=== PATIENT | female | born 1940 | race Caucasian/White ===

== ENCOUNTER 2017-08-10 22:08 | Inpatient (IN) | payer MEDICARE ==
--- NOTE | 2017-08-10 22:38 | ERPHSYRPT ---
- History of Present Illness Time Seen by Provider: 08/10/17 22:31 Historian: patient Exam Limitations: no limitations Physician History: This is a 77-year-old white female who is brought by [facility]. Patient states that she has been having loose stools for several years she states she has no pain and she is not really sure why she is here. Family states that she does have chronic diarrhea they thought that she had several episodes of vomiting today and so they had her brought to the emergency room. They state that they felt that her abdomen was distended. Patient currently denies any pain she again states she is not really sure why she was here. Past medical history includes glaucoma, diabetes, hypothyroidism, osteoarthritis , breast cancer, high blood pressure, diabetes, hiatal hernia Past surgical history includes left lower extremity amputation BKA, wisdom teeth removed lumpectomy, disc removed Timing/Duration: other (patient states symptoms for over2 years with loose stools family states vomiting today and diarrh) Activities at Onset: none Quality: other (patient denies pain) Pain Radiation: no radiation Severity of Pain-Max: none (family states patient was having pain at home patient denies pain) Severity of Pain-Current: none Associated Symptoms: diarrhea, nausea, vomiting (Family states vomiting at home patient denies), No back, No chest pain, No diaphoresis, No fever/chills, No fatigue, No headache, No heartburn, No loss of appetite, No neck pain, No rash, No shortness of breath, No syncope Previous symptoms: other (chronic diarrhea) Allergies/Adverse Reactions: Penicillins Allergy (Verified 08/10/17 22:41) tomato [Tomato] Allergy (Verified 08/10/17 22:41) Home Medications: Aspirin 81 mg PO DAILY 11/10/13 [History] Atenolol 12.5 mg PO BID 11/10/13 [History] Gemfibrozil 600 mg [Lopid 600 mg] 600 mg PO DAILY 11/10/13 [History] Simvastatin 40 mg [Zocor 40 mg] 40 mg PO HS 11/10/13 [History] Insulin Aspart [NovoLOG Insulin] 0 units SQ TIDWM 03/30/17 [History] Lisinopril [Zestril] 2.5 mg PO DAILY 03/30/17 [History] Metoclopramide HCl 5 mg PO BID 03/30/17 [History] Hx Tetanus, Diphtheria Vaccination/Date Given: (unknown) Hx Influenza Vaccination/Date Given: No Hx Pneumococcal Vaccination/Date Given: No - Review of Systems Constitutional: No Fever, No Chills Eyes: No Symptoms Ears, Nose, & Throat: No Symptoms Respiratory: No Cough, No Dyspnea Cardiac: No Chest Pain, No Edema, No Syncope Abdominal/Gastrointestinal: Abdominal Pain (family states abdominal pain patient denies), Diarrhea, Other, No Nausea, No Vomiting, No Constipation, No Hematemesis, No Hematochezia, No Melena, No Appetite Changes Genitourinary Symptoms: No Dysuria Musculoskeletal: No Back Pain, No Neck Pain Skin: No Rash Neurological: No Dizziness, No Focal Weakness, No Sensory Changes Psychological: No Symptoms Endocrine: No Symptoms All Other Systems: Reviewed and Negative - Past Medical History Pertinent Past Medical History: Yes Neurological History: No Pertinent History ENT History: Glaucoma Cardiac History: No Pertinent History Respiratory History: No Pertinent History Endocrine Medical History: Diabetes Type II, Hypothyroidism Musculoskeletal History: Osteoarthritis GI Medical History: Other History: No Pertinent History Psycho-Social History: No Pertinent History Female Reproductive Disorders: Breast Cancer Other Medical History: HTN. IDDM. Hypothryoidism. Breast CA. Hiatal Hernia - Past Surgical History Past Surgical History: Yes Neuro Surgical History: No Pertinent History Cardiac: No Pertinent History Respiratory: No Pertinent History Gastrointestinal: No Pertinent History Genitourinary: No Pertinent History Musculoskeletal: Amputation, Other Female Surgical History: Lumpectomy Other Surgical History: oral surgery - wisdom teeth. back surgery - disc removed - Social History Smoking Status: Former smoker Exposure to second hand smoke: No Drug Use: none Patient Lives Alone: No - Nursing Vital Signs Nursing Vital Signs: Initial Vital Signs Temperature 98.0 F 08/10/17 22:31 Pulse Rate 94 H 08/10/17 22:31 Respiratory Rate 16 08/10/17 22:31 Blood Pressure 131/102 08/10/17 22:31 O2 Sat by Pulse Oximetry 98 08/10/17 22:31 Pain Scale Pain Intensity 0 - Physical Exam General Appearance: no apparent distress, alert Eye Exam: PERRL/EOMI, eyes nml inspection Ears, Nose, Throat Exam: normal ENT inspection, pharynx normal, moist mucous membranes Neck Exam: normal inspection, non-tender, supple, full range of motion Respiratory Exam: normal breath sounds, lungs clear, No respiratory distress Cardiovascular Exam: regular rate/rhythm, normal heart sounds Gastrointestinal/Abdomen Exam: soft, other (abdomen is soft, obese, nontender, positive bowel sounds) Rectal Exam: other (moderate amount of stool no [id number]) Back Exam: normal inspection, normal range of motion, No CVA tenderness, No vertebral tenderness Extremity Exam: normal inspection, normal range of motion, pelvis stable Neurologic Exam: alert, oriented x 3, 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 Patchy infiltrate and consolidation in the left lower lobe concerning for pneumonia. market stool in the sigmoid colon and rectum consistent with constipation. Cholelithiasis without evidence of acute cholecystitis, follow-up as clinically indicated.) Ordered Tests: Active Orders 24 hr Category Date Time Status EKG-ER Only STAT Care 08/11/17 01:40 Active IV Insertion STAT Care 08/10/17 22:30 Active ABDOMEN AND PELVIS W/0 CONTRAS [CT] Stat Exams 08/10/17 23:32 Taken CHEST 1 VIEW (PORTABLE) Stat Exams 08/11/17 01:38 Taken AMYLASE Stat Lab 08/10/17 22:55 Completed BLOOD CULTURE Stat Lab 08/11/17 02:15 Received CBC W DIFF Stat Lab 08/10/17 22:55 Completed CMP Stat Lab 08/10/17 22:55 Completed CULTURE,SPUTUM Stat Lab 08/11/17 01:35 Uncollected LIPASE Stat Lab 08/10/17 22:55 Completed TROPONIN Q3H Lab 08/11/17 00:05 Completed TROPONIN Q3H Lab 08/11/17 02:15 Completed TROPONIN Q3H Lab 08/11/17 08:00 Ordered TROPONIN Q3H Lab 08/11/17 11:00 Ordered TROPONIN Q3H Lab 08/11/17 14:00 Ordered UA W/RFX UR CULTURE Stat Lab 08/10/17 23:45 Completed Medication Summary Generic Name Dose Route Start Last Admin Trade Name Yareli PRN Reason Stop Dose Admin Sodium Chloride 1,000 mls @ 100 mls/hr 08/10/17 22:30 08/10/17 23:44 Sodium Chloride 0.9% 1000 Ml IV 09/09/17 22:29 Not Given .Q10H [facility] Lab/Rad Data: Laboratory Result Diagrams 08/10/17 22:55 08/10/17 22:55 Laboratory Results 08/11/17 08/11/17 08/10/17 Range/Units 02:15 00:05 23:45 WBC (4.0-10.5) K/mm3 RBC (4.1-5.4) M/mm3 Hgb (12.0-16.0) gm/dl Hct (35-47) % MCV (78-100) fl MCH (26-32) pg MCHC (32-36) g/dl RDW (11.5-14.0) % Plt Count (150-450) K/mm3 MPV (6-9.5) fl Gran % (36.0-66.0) % Eos # (Auto) (0-0.5) Absolute Lymphs (auto) (1.0-4.6) Absolute Monos (auto) (0.0-1.3) Lymphocytes % (24.0-44.0) % Monocytes % (0.0-12.0) % Eosinophils % (0.00-5.0) % Basophils % (0.0-0.4) % Absolute Granulocytes (1.4-6.9) Basophils # (0-0.4) Sodium (137-145) mmol/L Potassium (3.5-5.1) mmol/L Chloride (98-107) mmol/L Carbon Dioxide (22-30) mmol/L Anion Gap (5-15) MEQ/L BUN (7-17) mg/dL Creatinine (0.52-1.04) mg/dL Estimated GFR ML/MIN Glucose (74-106) mg/dL Calcium (8.4-10.2) mg/dL Total Bilirubin (0.2-1.3) mg/dL AST (14-36) U/L ALT (0-35) U/L Alkaline Phosphatase (38-126) U/L Troponin I < 0.012 < 0.012 (0.000-0.034) ng/mL Serum Total Protein (6.3-8.2) g/dL Albumin (3.5-5.0) g/dL Amylase (30-110) U/L Lipase (23-300) U/L Ur Collection Type CATH Urine Color YELLOW (YELLOW) Urine Appearance CLEAR (CLEAR) Urine pH 5.0 (5-6) Ur Specific [place] 1.015 (1.005-1.025) Urine Protein NEGATIVE (Negative) Urine Ketones NEGATIVE (NEGATIVE) Urine Blood NEGATIVE (0-5) Ross/ul Urine Nitrite NEGATIVE (NEGATIVE) Urine Bilirubin NEGATIVE (NEGATIVE) Urine Urobilinogen NORMAL (0-1) mg/dL Ur Leukocyte Esterase NEGATIVE (NEGATIVE) Urine Culture Reflexed NO (NO) Urine Glucose NEGATIVE (NEGATIVE) mg/dL Specimen Received 08/10/17 [id number] 08/10/17 08/10/17 Range/Units 22:55 22:55 WBC 20.3 H (4.0-10.5) K/mm3 RBC 4.95 (4.1-5.4) M/mm3 Hgb 13.9 (12.0-16.0) gm/dl Hct 44.0 (35-47) % MCV 88.9 (78-100) fl MCH 28.1 (26-32) pg MCHC 31.6 L (32-36) g/dl RDW 16.0 H (11.5-14.0) % Plt Count 251 (150-450) K/mm3 MPV 9.5 (6-9.5) fl Gran % 90.0 H (36.0-66.0) % Eos # (Auto) 0.02 (0-0.5) Absolute Lymphs (auto) 1.06 (1.0-4.6) Absolute Monos (auto) 0.91 (0.0-1.3) Lymphocytes % 5.2 L (24.0-44.0) % Monocytes % 4.5 (0.0-12.0) % Eosinophils % 0.1 (0.00-5.0) % Basophils % 0.2 (0.0-0.4) % Absolute Granulocytes 18.26 H (1.4-6.9) Basophils # 0.04 (0-0.4) Sodium 143 (137-145) mmol/L Potassium 4.0 (3.5-5.1) mmol/L Chloride 112 H (98-107) mmol/L Carbon Dioxide 17 L (22-30) mmol/L Anion Gap 18.7 H (5-15) MEQ/L BUN 63 H (7-17) mg/dL Creatinine 0.87 (0.52-1.04) mg/dL Estimated GFR > 60.0 ML/MIN Glucose 249 H (74-106) mg/dL Calcium 9.9 (8.4-10.2) mg/dL Total Bilirubin 0.20 (0.2-1.3) mg/dL AST 26 (14-36) U/L ALT 16 (0-35) U/L Alkaline Phosphatase 114 (38-126) U/L Troponin I (0.000-0.034) ng/mL Serum Total Protein 7.2 (6.3-8.2) g/dL Albumin 3.9 (3.5-5.0) g/dL Amylase 92 (30-110) U/L Lipase 457 H (23-300) U/L Ur Collection Type Urine Color (YELLOW) Urine Appearance (CLEAR) Urine pH (5-6) Ur Specific [place] (1.005-1.025) Urine Protein (Negative) Urine Ketones (NEGATIVE) Urine Blood (0-5) Ross/ul Urine Nitrite (NEGATIVE) Urine Bilirubin (NEGATIVE) Urine Urobilinogen (0-1) mg/dL Ur Leukocyte Esterase (NEGATIVE) Urine Culture Reflexed (NO) Urine Glucose (NEGATIVE) mg/dL Specimen Received - Progress Progress: improved Progress Note: 08/11/17 01:55 This is a 77-year-old white female with history of glaucoma, diabetes type 2, hypothyroidism, osteoarthritis, breast cancer, high blood pressure, hiatal hernia, bronchitis, Patient states she she has been having loose stools for a couple of years she was noted today to have vomiting and family stated that she was complaining of abdominal pain however patient denies any real changes or vomiting when I talk to her. Patient's labs show a white count of 20.3 hemoglobin 13.9 hematocrit 44 him patient's chemistry shows sodium 143 potassium 4.0 chloride 112 bicarbonate 17 BUN 63 creatinine 0.87 glucose 249 Patient's EKG shows sinus rhythm [address] or T wave changes are noted Troponin is pending on this patient she has no chest pain or shortness of breath. Patient is noted to have a moderate amount of stool in her bowel she does not feel to be impacted she has no bleeding on rectal exam Because of the family's statement that the patient was complaining of abdominal pain and vomiting CT of the abdomen without contrast was obtained. This is remarkable for a patchy infiltrate and consolidation in the left lower lobe concerning for pneumonia, marketed stool in the sigmoid colon and rectum consistent with constipation, cholelithiasis without evidence of acute cholecystitis, patient was noted to have an amylase and lipase on her chemistry which shows elevated lipase of 457. Blood cultures have been ordered on this patient patient will be given IV Rocephin records show the patient has received IV Rocephin on multiple occasions I have obtained a troponin on this patient there appears to be isolated T wave elevation in lead 2 but does not appear acute changes on CT to show acute changes on EKG. Will plan on admitting patient chest x-ray has been ordered, blood cultures have been ordered sputum cultures have been ordered patient is receiving IV normal saline at 100 mL per hour. 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 Lopez 08/11/17 02:52 Case is discussed with Dr. Lopez. Will plan on placing the patient on observation. Continue IV fluids, keep a patient nothing by mouth for now. Continue Rocephin begin Zithromax. Diagnosis 1 vomiting. 2 pancreatitis. 3. Left lower lobe pneumonia 4 constipation - Departure Time of Disposition: 02:54 Departure Disposition: In-patient Admission Clinical Impression: Vomiting Qualifiers: Vomiting type: unspecified Vomiting Intractability: non-intractable Nausea presence: unspecified Qualified Code(s): R11.10 - Vomiting, unspecified Pancreatitis Qualifiers: Chronicity: acute Pancreatitis type: unspecified pancreatitis type Acute pancreatitis complication: unspecified Qualified Code(s): K85.90 - Acute pancreatitis without necrosis or infection, unspecified Left lower lobe pneumonia Qualifiers: Pneumonia type: due to unspecified organism Qualified Code(s): J18.1 - Lobar pneumonia, unspecified organism Constipation Qualifiers: Constipation type: unspecified constipation type Qualified Code(s): K59.00 - Constipation, unspecified Condition: Fair Critical Care Time: No Referrals: FELICIA LOPEZ MD [Primary Care Provider] -
[2017-08-10 22:59] LABS: BASOPHIL % 0.2 % (0.0-0.4); Basophil (Absolute #) 0.04 (0-0.4); Eosinophil % 0.1 % (0.00-5.0); Eosinophil (Absolute #) 0.02 (0-0.5); Granulocyte Absolute (ANC) 18.26 (1.4-6.9); Hemoglobin 13.9 gm/dl (12.0-16.0); Lymphocyte (Absolute #) 1.06 (1.0-4.6); Lymphocytes % 5.2 % (24.0-44.0); Mean Cell Volume 88.9 fl (78-100); Mean Corpuscular Hemoglobin 28.1 pg (26-32); Mean Corpuscular Hgb Concent. 31.6 g/dl (32-36); Mean Platelet Volume 9.5 fl (6-9.5); Monocyte (Absolute #) 0.91 (0.0-1.3); Monocytes % 4.5 % (0.0-12.0); Platelet Count 251 K/mm3 (150-450); Red Blood Count 4.95 M/mm3 (4.1-5.4); White Blood Count 20.3 K/mm3 (4.0-10.5)
[2017-08-10 23:21] LABS: ALBUMIN 3.9 g/dL (3.5-5.0); ALKALINE PHOSPHATASE 114 U/L (38-126); AMYLASE 92 U/L (30-110); ANION GAP 18.7 MEQ/L (5-15); BLOOD UREA NITROGEN 63 mg/dL (7-17); CHLORIDE 112 mmol/L (98-107); Calcium 9.9 mg/dL (8.4-10.2); Carbon Dioxide 17 mmol/L (22-30); Creatinine 1 0.87 mg/dL (0.52-1.04); Glucose 249 mg/dL (74-106); LIPASE 457 U/L (23-300); SGOT/AST 26 U/L (14-36); SGPT/ALT 16 U/L (0-35); SODIUM 143 mmol/L (137-145); Total Protein 7.2 g/dL (6.3-8.2)
[2017-08-10] MEDS: Sodium Chloride 0.9% 1000 ML 1,000 ML IV SCH (23:44)
[2017-08-10 23:54] LABS: Appearance CLEAR (CLEAR)
[2017-08-10 23:55] LABS: Bilirubin NEGATIVE (NEGATIVE); Blood NEGATIVE Ery/ul (0-5); Glucose NEGATIVE (NEGATIVE); Ketones NEGATIVE (NEGATIVE); Leukocyte Esterase NEGATIVE (NEGATIVE); Nitrite NEGATIVE (NEGATIVE); Protein,Urine Dip NEGATIVE (Negative); Specific Gravity 1.015 (1.005-1.025); Urobilinogen NORMAL mg/dL (0-1)
[2017-08-11] MEDS ORDERED: NovoLOG Insulin SQ PRN (04:03)
[2017-08-11] MEDS ORDERED: Sodium Chloride 0.9% 1000 ML 1,000 ML IV SCH (04:03)
[2017-08-11] MEDS ORDERED: Zofran 4 MG/2 ML VIAL IV PRN (04:03)
[2017-08-11] MEDS: Sodium Chloride 0.9% 1000 ML 1,000 ML IV SCH ×2 (04:52→17:04)
--- NOTE | 2017-08-11 08:55 | XRAY ---
Indication: Abdomen pain. Diarrhea. Multiple contiguous axial images obtained through the abdomen and pelvis without contrast as ordered. Comparison: November 10, 2013. Lung bases demonstrates new left lower lobe patchy airspace disease with small focus of consolidation. Right lung bases clear. Heart is not enlarged. Stomach is distended with food/fluid. Large rectal and sigmoid fecal impaction worst than before. No free fluid/air. Again 2.2 cm gallstone and calcified uterine fibroids. There is now punctate calcification in the left posterior urinary bladder. Remaining liver, pancreas, spleen, adrenal glands, kidneys, ureters, and bladder appear unremarkable for noncontrast exam. There remains moderate scattered vascular calcifications without AAA. Osseous structures again demonstrates osteopenia and moderate multilevel degenerative spondylosis. Impression: 1. Again sigmoid and rectal fecal impaction. 2. New posterior urinary bladder micro-calculus versus bladder wall calcification. 3. Stable gallstone and calcified uterine fibroids. 4. New left lung base patchy consolidating airspace disease. Comment: Preliminary interpretation was made by [facility]. No discrepancy. CT DI 21.17
--- NOTE | 2017-08-11 08:57 | XRAY ---
Indication: Abdomen pain. Infiltrate. Comparison: March 30, 2017. Portable chest demonstrates new left base infiltrate/atelectasis. Remaining heart and lungs unremarkable with stable left-sided [place] catheter. Bony thorax intact again with osteopenia and degenerative changes.
[2017-08-11] MEDS: ROCEPHIN 1 Gm-D5w 50 ml Bag** 1 G/50 ML IVPB IV SCH (09:04)
[2017-08-11] MEDS: Zithromax 500 MG/ 250 ML NaCl Premix 500 MG/250 ML IVPB IV SCH (09:06)
[2017-08-12] MEDS: Sodium Chloride 0.9% 1000 ML 1,000 ML IV SCH ×2 (02:08→23:25)
[2017-08-12 05:52] LABS: BASOPHIL % 0.3 % (0.0-0.4); Basophil (Absolute #) 0.03 (0-0.4); Eosinophil % 2.9 % (0.00-5.0); Eosinophil (Absolute #) 0.33 (0-0.5); Hematocrit 34.8 % (35-47); Hemoglobin 11.1 gm/dl (12.0-16.0); Lymphocyte (Absolute #) 2.11 (1.0-4.6); Lymphocytes % 18.5 % (24.0-44.0); Mean Cell Volume 88.1 fl (78-100); Mean Corpuscular Hemoglobin 28.1 pg (26-32); Mean Corpuscular Hgb Concent. 31.9 g/dl (32-36); Mean Platelet Volume 9.2 fl (6-9.5); Monocyte (Absolute #) 1.06 (0.0-1.3); Monocytes % 9.3 % (0.0-12.0); Platelet Count 225 K/mm3 (150-450); Red Blood Count 3.95 M/mm3 (4.1-5.4); Red Cell Distribution Width 15.5 % (11.5-14.0); White Blood Count 11.4 K/mm3 (4.0-10.5)
[2017-08-12 05:54] LABS: ALKALINE PHOSPHATASE 79 U/L (38-126); AMYLASE 38 U/L (30-110); ANION GAP 11.3 MEQ/L (5-15); BLOOD UREA NITROGEN 27 mg/dL (7-17); CHLORIDE 114 mmol/L (98-107); Calcium 9.1 mg/dL (8.4-10.2); Carbon Dioxide 19 mmol/L (22-30); Creatinine 1 0.47 mg/dL (0.52-1.04); Glucose 107 mg/dL (74-106); LIPASE 36 U/L (23-300); SGOT/AST 17 U/L (14-36); SGPT/ALT 12 U/L (0-35); SODIUM 141 mmol/L (137-145); Total Protein 5.8 g/dL (6.3-8.2)
[2017-08-12 06:33] LABS: Potassium 2.5 mmol/L (3.5-5.1)
[2017-08-12] MEDS: POTASSIUM CHLORIDE 20 mEq IN WATER 100ML 20 MEQ/100 ML BAG IV SCH ×4 (06:50→21:49)
[2017-08-12] MEDS: ROCEPHIN 1 Gm-D5w 50 ml Bag** 1 G/50 ML IVPB IV SCH (08:52)
--- NOTE | 2017-08-12 10:03 | PCM.HP ---
History of Present Illness - Chief Complaint Chief Complaint: Vomiting History of Present Illness: is a 77 year old female. - Review of Systems Constitutional: No Fever, No Chills Eyes: No Symptoms Ears, Nose, & Throat: No Symptoms Respiratory: No Cough, No Short Of Breath Cardiac: No Chest Pain, No Edema, No Syncope Abdominal/Gastrointestinal: No Abdominal Pain, No Nausea, No Vomiting, No Diarrhea Genitourinary Symptoms: No Dysuria Musculoskeletal: No Back Pain, No Neck Pain Skin: No Rash Neurological: No Dizziness, No Focal Weakness, No Sensory Changes Psychological: No Symptoms Endocrine: No Symptoms Hematologic/Lymphatic: No Symptoms Immunological/Allergic: No Symptoms Medications & Allergies Home Medications: Home Medication List Aspirin 81 mg PO DAILY 11/10/13 [History Confirmed 08/11/17] Atenolol 25 mg PO BID 11/10/13 [History Confirmed 08/11/17] Gemfibrozil 600 mg [Lopid 600 mg] 600 mg PO DAILY 11/10/13 [History Confirmed 08/11/17] Simvastatin 40 mg [Zocor 40 mg] 40 mg PO HS 11/10/13 [History Confirmed 08/11/17 ] Levothyroxine Sodium 125 mcg PO DAILY #30 tablet 11/14/13 [Rx Confirmed 08/11/17 ] PANTOPRAZOLE 40 mg Tablet [Protonix 40MG Tablet] 40 mg PO DAILY #30 tab [Rx Confirmed 08/11/17] Insulin Aspart [NovoLOG Insulin] 7 units SQ TIDWM 03/30/17 [History Confirmed 08/11/17] Lisinopril [Zestril] 2.5 mg PO DAILY 03/30/17 [History Confirmed 08/11/17] Metoclopramide HCl 5 mg PO BID 03/30/17 [History Confirmed 08/11/17] Balsam [place] Oil [Venelex Ointment] 60 gm TP TID 08/11/17 [History Confirmed 08/11/17] Ferrous Sulfate [Iron] 325 mg PO TID 08/11/17 [History Confirmed 08/11/17] Insulin Glargine [Lantus Insulin] 42 units SQ HS 08/11/17 [History Confirmed 07/26] Metoclopramide HCl [Reglan] 2.5 mg PO AC 08/11/17 [History Confirmed 08/11/17] Multivitamin [Multi-Vitamin Daily] 1 tab PO DAILY 08/11/17 [History Confirmed ] Allergies/Adverse Reactions: Allergies Allergy/AdvReac Type Severity Reaction Status Date / Time Penicillins Allergy Verified 08/10/17 22:41 tomato [Tomato] Allergy Verified 08/10/17 22:41 - Past Medical History Past Medical History: Yes Neurological History: No Pertinent History ENT History: Glaucoma Cardiac History: No Pertinent History Respiratory History: No Pertinent History Endocrine Medical History: Diabetes Type II, Hypothyroidism Musculoskelatal History: Osteoarthritis GI Medical History: Other History: No Pertinent History Pyscho-Social History: No Pertinent History Reproductive Disorders: Breast Cancer Comment: HTN. IDDM. Hypothryoidism. Breast CA. Hiatal Hernia. pt poor historian, recalled from ER documentation - Female History Are you now?: No - Past Surgical History Past Surgical History: Yes Neuro Surgical History: No Pertinent History Cardiac History: No Pertinent History Respiratory Surgery: No Pertinent History GI Surgical History: No Pertinent History Genitourinary Surgical Hx: No Pertinent History Musculskeletal Surgical Hx: Amputation, Other Female Surgical History: Lumpectomy Other Surgical History: oral surgery - wisdom teeth. back surgery - disc removed - Social History Smoking Status: Never smoker Exposure to second hand smoke: No Alcohol: None Drug Use: none - Physical Exam Vital Signs: Vital Signs - 24 hr Temp Pulse Resp BP Pulse Ox 08/12/17 07:31 16 08/12/17 06:58 98.1 F 83 16 153/68 98 08/12/17 06:00 98 08/12/17 04:00 98.1 F 80 18 158/67 98 08/12/17 00:00 98.2 F 85 18 131/63 97 08/11/17 20:00 98.4 F 89 20 126/80 96 08/11/17 16:35 97.9 F 92 H 20 141/63 98 08/11/17 16:00 18 08/11/17 11:31 98.5 F 92 H 18 137/61 97 08/11/17 11:20 18 Oxygen-Last 24 hours O2 Percentage 1 Liter = 24% Oxygen Flowrate (L/min)-RT 1 General Appearance: no apparent distress, alert Neurologic Exam: alert, oriented x 3, cooperative, normal mood/affect, nml cerebellar function, nml station & gait, sensation nml, No motor deficits Eye Exam: PERRL/EOMI, eyes nml inspection Ears, Nose, Throat Exam: normal ENT inspection, TMs normal, pharynx normal, moist mucous membranes Neck Exam: normal inspection, non-tender, supple, full range of motion Respiratory Exam: normal breath sounds, lungs clear, No respiratory distress Cardiovascular Exam: regular rate/rhythm, normal heart sounds, normal peripheral pulses Gastrointestinal/Abdomen Exam: soft, normal bowel sounds, No tenderness, No mass Back Exam: normal inspection, normal range of motion, No CVA tenderness, No vertebral tenderness Extremity Exam: normal inspection, normal range of motion, pelvis stable Skin Exam: normal color, warm, dry, No rash Lymphatic Exam: No adenopathy Results - Labs Lab/Micro Results: Accuchecks Date 08/12/17 Date 08/12/17 Date 08/12/17 Date 08/11/17 Date 08/11/17 Date 08/11/17 Time 07:41 Time 04:00 Time 00:00 Time 18:24 Time 14:20 Accucheck Value: 89 Accucheck Value: 94 Accucheck Value: 157 Accucheck Value: 188 Accucheck Value: 144 Accucheck Value: 179 Lab Results-Last 24 Hours 08/12/17 08/12/17 08/12/17 Range/Units 05:15 05:25 05:25 WBC 11.4 H (4.0-10.5) K/mm3 RBC 3.95 L (4.1-5.4) M/mm3 Hgb 11.1 L (12.0-16.0) gm/dl Hct 34.8 L (35-47) % MCV 88.1 (78-100) fl MCH 28.1 (26-32) pg MCHC 31.9 L (32-36) g/dl RDW 15.5 H (11.5-14.0) % Plt Count 225 (150-450) K/mm3 MPV 9.2 (6-9.5) fl Gran % 69.0 H (36.0-66.0) % Eos # (Auto) 0.33 (0-0.5) Absolute Lymphs (auto) 2.11 (1.0-4.6) Absolute Monos (auto) 1.06 (0.0-1.3) Lymphocytes % 18.5 L (24.0-44.0) % Monocytes % 9.3 (0.0-12.0) % Eosinophils % 2.9 (0.00-5.0) % Basophils % 0.3 (0.0-0.4) % Absolute Granulocytes 7.90 H (1.4-6.9) Basophils # 0.03 (0-0.4) Sodium 141 (137-145) mmol/L Potassium 2.5 L* (3.5-5.1) mmol/L Chloride 114 H (98-107) mmol/L Carbon Dioxide 19 L (22-30) mmol/L Anion Gap 11.3 (5-15) MEQ/L BUN 27 H (7-17) mg/dL Creatinine 0.47 L (0.52-1.04) mg/dL Estimated GFR > 60.0 ML/MIN Glucose 107 H (74-106) mg/dL Hemoglobin A1c 6.94 H (4.5-6.0) % Calcium 9.1 (8.4-10.2) mg/dL Total Bilirubin 0.40 (0.2-1.3) mg/dL AST 17 (14-36) U/L ALT 12 (0-35) U/L Alkaline Phosphatase 79 (38-126) U/L Serum Total Protein 5.8 L (6.3-8.2) g/dL Albumin 3.0 L (3.5-5.0) g/dL Amylase 38 (30-110) U/L Lipase 36 (23-300) U/L Accuchecks Date 08/12/17 Date 08/12/17 Date 08/12/17 Date 08/11/17 Date 08/11/17 Date 08/11/17 Time 07:41 Time 04:00 Time 00:00 Time 18:24 Time 14:20 Accucheck Value: 89 Accucheck Value: 94 Accucheck Value: 157 Accucheck Value: 188 Accucheck Value: 144 Accucheck Value: 179 Assessment/Plan (1) Left lower lobe pneumonia Current Visit: Yes Status: Acute Onset Date: ~08/11/17 Qualifiers: Pneumonia type: due to unspecified organism Qualified Code(s): J18.1 - Lobar pneumonia, unspecified organism Code(s): J18.1 - LOBAR PNEUMONIA, UNSPECIFIED ORGANISM (2) Pancreatitis Current Visit: Yes Status: Acute Onset Date: ~08/11/17 Qualifiers: Chronicity: acute Pancreatitis type: unspecified pancreatitis type Acute pancreatitis complication: unspecified Qualified Code(s): K85.90 - Acute pancreatitis without necrosis or infection, unspecified Code(s): K85.90 - ACUTE PANCREATITIS WITHOUT NECROSIS OR INFECTION, UNSP (3) Type 2 diabetes mellitus Current Visit: No Status: Chronic (4) Decubitus skin ulcer Current Visit: No Status: Suspected Code(s): L89.90 - PRESSURE ULCER OF UNSPECIFIED SITE, UNSPECIFIED STAGE
--- NOTE | 2017-08-12 10:04 | PCM.NOTE ---
Date and Time: 08/12/17 1003 Subjective Assessment: doing ok - Review of Systems Constitutional: No Fever, No Chills Eyes: No Symptoms Ears, Nose, & Throat: No Symptoms Respiratory: Cough, No Short Of Breath Cardiac: No Chest Pain, No Edema, No Syncope Abdominal/Gastrointestinal: No Abdominal Pain, No Nausea, No Vomiting, No Diarrhea Genitourinary Symptoms: No Dysuria Musculoskeletal: No Back Pain, No Neck Pain Skin: Decubiti, No Rash Neurological: No Dizziness, No Focal Weakness, No Sensory Changes Psychological: No Symptoms Endocrine: No Symptoms Hematologic/Lymphatic: No Symptoms Immunological/Allergic: No Symptoms Objective Exam General Appearance: no apparent distress, alert Neurologic Exam: alert, oriented x 3, cooperative, normal mood/affect, nml cerebellar function, sensation nml, No motor deficits Skin Exam: normal color, warm, dry Eye Exam: PERRL, EOMI, eyes nml inspection Ears, Nose, Throat Exam: normal ENT inspection, pharynx normal, moist mucous membranes Neck Exam: normal inspection, non-tender, supple, full range of motion Respiratory Exam: normal breath sounds, crackles/rales, rhonchi, wheezing, No respiratory distress Cardiovascular Exam: regular rate/rhythm, normal heart sounds Gastrointestinal/Abdomen Exam: soft, No tenderness, No mass Extremity Exam: normal inspection, normal range of motion Back Exam: normal inspection, normal range of motion, No CVA tenderness, No vertebral tenderness Pelvic Exam: deferred Rectal Exam: deferred OBJECTIVE DATA Vital Signs: Vital Signs - 24 hr Temp Pulse Resp BP Pulse Ox 08/12/17 07:31 16 08/12/17 06:58 98.1 F 83 16 153/68 98 08/12/17 06:00 98 08/12/17 04:00 98.1 F 80 18 158/67 98 08/12/17 00:00 98.2 F 85 18 131/63 97 08/11/17 20:00 98.4 F 89 20 126/80 96 08/11/17 16:35 97.9 F 92 H 20 141/63 98 08/11/17 16:00 18 08/11/17 11:31 98.5 F 92 H 18 137/61 97 08/11/17 11:20 18 Oxygen-Last 24 hours O2 Percentage 1 Liter = 24% Oxygen Flowrate (L/min)-RT 1 Pain Assessment - Last Documented Pain Intensity 0 Pain Scale Used 0-10 Pain Scale Intake and Output: Intake & Output 08/09/17 08/10/17 08/11/17 08/12/17 11:59 11:59 11:59 11:59 Intake Total 2162 Output Total 500 1200 Balance -500 962 Weight 63 kg 63.7 kg Lab Results: Accuchecks Date 08/12/17 Date 08/12/17 Date 08/12/17 Date 08/11/17 Date 08/11/17 Date 08/11/17 Time 07:41 Time 04:00 Time 00:00 Time 18:24 Time 14:20 Accucheck Value: 89 Accucheck Value: 94 Accucheck Value: 157 Accucheck Value: 188 Accucheck Value: 144 Accucheck Value: 179 Lab Results-Last 24 Hours 08/12/17 08/12/17 08/12/17 Range/Units 05:15 05:25 05:25 WBC 11.4 H (4.0-10.5) K/mm3 RBC 3.95 L (4.1-5.4) M/mm3 Hgb 11.1 L (12.0-16.0) gm/dl Hct 34.8 L (35-47) % MCV 88.1 (78-100) fl MCH 28.1 (26-32) pg MCHC 31.9 L (32-36) g/dl RDW 15.5 H (11.5-14.0) % Plt Count 225 (150-450) K/mm3 MPV 9.2 (6-9.5) fl Gran % 69.0 H (36.0-66.0) % Eos # (Auto) 0.33 (0-0.5) Absolute Lymphs (auto) 2.11 (1.0-4.6) Absolute Monos (auto) 1.06 (0.0-1.3) Lymphocytes % 18.5 L (24.0-44.0) % Monocytes % 9.3 (0.0-12.0) % Eosinophils % 2.9 (0.00-5.0) % Basophils % 0.3 (0.0-0.4) % Absolute Granulocytes 7.90 H (1.4-6.9) Basophils # 0.03 (0-0.4) Sodium 141 (137-145) mmol/L Potassium 2.5 L* (3.5-5.1) mmol/L Chloride 114 H (98-107) mmol/L Carbon Dioxide 19 L (22-30) mmol/L Anion Gap 11.3 (5-15) MEQ/L BUN 27 H (7-17) mg/dL Creatinine 0.47 L (0.52-1.04) mg/dL Estimated GFR > 60.0 ML/MIN Glucose 107 H (74-106) mg/dL Hemoglobin A1c 6.94 H (4.5-6.0) % Calcium 9.1 (8.4-10.2) mg/dL Total Bilirubin 0.40 (0.2-1.3) mg/dL AST 17 (14-36) U/L ALT 12 (0-35) U/L Alkaline Phosphatase 79 (38-126) U/L Serum Total Protein 5.8 L (6.3-8.2) g/dL Albumin 3.0 L (3.5-5.0) g/dL Amylase 38 (30-110) U/L Lipase 36 (23-300) U/L Assessment/Plan (1) Left lower lobe pneumonia Current Visit: Yes Status: Acute Onset Date: ~08/11/17 Qualifiers: Pneumonia type: due to unspecified organism Qualified Code(s): J18.1 - Lobar pneumonia, unspecified organism Code(s): J18.1 - LOBAR PNEUMONIA, UNSPECIFIED ORGANISM (2) Pancreatitis Current Visit: Yes Status: Acute Onset Date: ~08/11/17 Qualifiers: Chronicity: acute Pancreatitis type: unspecified pancreatitis type Acute pancreatitis complication: unspecified Qualified Code(s): K85.90 - Acute pancreatitis without necrosis or infection, unspecified Code(s): K85.90 - ACUTE PANCREATITIS WITHOUT NECROSIS OR INFECTION, UNSP (3) Type 2 diabetes mellitus Current Visit: No Status: Chronic (4) Decubitus skin ulcer Current Visit: No Status: Suspected Code(s): L89.90 - PRESSURE ULCER OF UNSPECIFIED SITE, UNSPECIFIED STAGE
[2017-08-12] MEDS: Zithromax 500 MG/ 250 ML NaCl Premix 500 MG/250 ML IVPB IV SCH (10:36)
[2017-08-12] MEDS ORDERED: ZOCOR 20MG PO SCH (22:00)
[2017-08-12] MEDS: CLEOCIN 150 MG CAPSULE PO SCH (22:17)
[2017-08-12] MEDS: TENORMIN 50 MG PO SCH (22:18)
[2017-08-12] MEDS: Reglan 5 MG PO SCH (22:19)
[2017-08-13 07:22] VITALS: BP 166/76; PULSE 77; O2SAT 98
[2017-08-13] MEDS: Reglan 5 MG PO SCH (09:35)
[2017-08-13] MEDS: TENORMIN 50 MG PO SCH (09:35)
[2017-08-13] MEDS: CLEOCIN 150 MG CAPSULE PO SCH (09:36)
[2017-08-13] MEDS ORDERED: NON-FORMULARY ITEM (Aspirin [Aspirin] 81 MG) PO SCH (10:00)
[2017-08-13] MEDS ORDERED: FEOSOL 325 MG PO SCH (10:00)
[2017-08-13] MEDS ORDERED: Protonix 40MG Tablet PO SCH (10:00)
[2017-08-13] MEDS ORDERED: SYNTHROID 125 MCG PO SCH (10:00)
[2017-08-13] MEDS ORDERED: VENELEX OINTMENT TP SCH (10:00)
[2017-08-13] MEDS ORDERED: ECOTRIN 81 MG PO SCH (10:00)
[2017-08-13] MEDS ORDERED: Zestril 5 MG PO SCH (10:00)
[2017-08-13] MEDS: LOPID 600 MG PO SCH (10:01)
[2017-08-13] MEDS: Zithromax 500 MG/ 250 ML NaCl Premix 500 MG/250 ML IVPB IV SCH (10:04)
[2017-08-13] MEDS: ROCEPHIN 1 Gm-D5w 50 ml Bag** 1 G/50 ML IVPB IV SCH (10:04)
--- NOTE | 2017-08-13 20:20 | PCM.DS ---
Discharge Summary Date of Admission: 08/11/17 03:58 Admitting Physician: FELICIA LOPEZ Primary Care Provider: FELICIA LOPEZ Allergies Allergies Penicillins Allergy (Verified 08/10/17 22:41) tomato [Tomato] Allergy (Verified 08/10/17 22:41) Hospital Summary - Hospital Course Hospital Course: Chief Complaint Diagnosis Vomiting Allergies Allergy/AdvReac Type Severity Reaction Status Date / Time Penicillins Allergy Verified 08/10/17 22:41 tomato [Tomato] Allergy Verified 08/10/17 22:41 Vital Signs (Last 24 hours) Temp Pulse Resp BP BP Pulse Ox 08/13/17 09:35 77 166/76 08/13/17 08:00 16 08/13/17 07:22 98.2 F 77 16 166/76 98 08/13/17 04:00 97.9 F 72 18 138/55 99 08/13/17 00:00 97.8 F 71 19 139/99 96 Home Medications Medication Instructions Recorded Confirmed Last Taken Type Balsam [place] Oil [Venelex 60 gm TP TID 08/11/17 08/11/17 Unknown History Ointment] Ferrous Sulfate [Iron] 325 mg PO TID 08/11/17 08/11/17 Unknown History Insulin Glargine [Lantus Insulin] 42 units SQ HS 08/11/17 08/11/17 Unknown History Metoclopramide HCl [Reglan] 2.5 mg PO AC 08/11/17 08/11/17 Unknown History Multivitamin [Multi-Vitamin Daily] 1 tab PO DAILY 08/11/17 08/11/17 Unknown History Cephalexin [Keflex] 500 mg PO QID 7 Days #28 capsule 08/13/17 Unknown Rx Current Medications Discontinued Medications Generic Name Dose Route Start Last Admin Trade Name Freq PRN Reason Stop Dose Admin Aspirin 81 mg 08/13/17 10:00 08/13/17 10:01 Ecotrin 81 Mg PO 09/12/17 09:59 81 mg DAILY CINTHIA Administration Atenolol 12.5 mg 08/12/17 22:00 08/13/17 09:35 Tenormin 50 Mg PO 09/11/17 21:59 12.5 mg BID CINTHIA Administration Balsam New/[place] Oil 60 gm 08/13/17 10:00 08/13/17 10:03 Venelex Ointment TP 09/12/17 09:59 60 gm TID CINTHIA Administration Clindamycin HCl 300 mg 08/12/17 22:00 08/13/17 09:36 Cleocin 150 Mg Capsule PO 09/11/17 21:59 300 mg QID CINTHIA Administration Ferrous Sulfate 325 mg 08/13/17 10:00 08/13/17 10:00 Feosol 325 Mg PO 09/12/17 09:59 325 mg TID CINTHIA Administration Gemfibrozil 600 mg 08/13/17 10:00 08/13/17 10:01 Lopid 600 Mg PO 09/12/17 09:59 600 mg DAILY CINTHIA Administration Sodium Chloride 1,000 mls @ 100 mls/hr 08/10/17 22:30 08/12/17 23:25 Sodium Chloride 0.9% 1000 Ml IV 09/09/17 22:29 100 mls/hr .Q10H CINTHIA Administration Azithromycin 500 mg in 250 mls @ 250 mls/hr 08/11/17 10:00 08/13/17 10:04 Zithromax 500 Mg/ 250 Ml Nacl Premix IV 09/10/17 09:59 Not Given Q24H10 CINTHIA Ceftriaxone Sodium/Dextrose 1 g in 50 mls @ 100 mls/hr 08/11/17 10:00 10:04 Rocephin 1 Gm-D5w 50 Ml Bag IV 09/10/17 09:59 Not Given Q24H10 CINTHIA Sodium Chloride 1,000 mls @ 100 mls/hr 08/11/17 04:03 Sodium Chloride 0.9% 1000 Ml IV 09/10/17 04:02 .Q10H CINTHIA Potassium Chloride 20 meq in 100 mls @ 50 mls/hr 08/12/17 06:45 08/12/17 08: 52 Potassium Chloride 20 Meq In Water 100ml IV 08/12/17 10:44 50 mls/hr Q2H CINTHIA Administration Potassium Chloride 20 meq in 100 mls @ 50 mls/hr 08/12/17 19:15 08/12/17 21: 49 Potassium Chloride 20 Meq In Water 100ml IV 08/12/17 23:14 50 mls/hr Q2H CINTHIA Administration Insulin Aspart 0 unit 08/11/17 04:03 08/11/17 06:59 Novolog Insulin SQ 09/10/17 04:02 2 unit UD PRN Administration HYPERGLYCEMIA Levothyroxine Sodium 125 mcg 08/13/17 10:00 08/13/17 10:00 Synthroid 125 Mcg PO 09/12/17 09:59 125 mcg DAILY CINTHIA Administration Lisinopril 2.5 mg 08/13/17 10:00 08/13/17 10:01 Zestril 5 Mg PO 09/12/17 09:59 2.5 mg DAILY CINTHIA Administration Metoclopramide HCl 5 mg 08/12/17 22:00 08/13/17 09:35 Reglan 5 Mg PO 09/11/17 21:59 5 mg BID CINTHIA Administration Ondansetron HCl 4 mg 08/11/17 04:03 Zofran 4 Mg/2 Ml Vial IV 09/10/17 04:02 Q6H PRN PRN NAUSEA/VOMITING Pantoprazole Sodium 40 mg 08/13/17 10:00 08/13/17 10:01 Protonix 40mg Tablet PO 09/12/17 09:59 40 mg DAILY CINTHIA Administration Simvastatin 40 mg 08/12/17 22:00 08/12/17 22:18 Zocor 20mg PO 09/11/17 21:59 40 mg HS CINTHIA Administration Intake & Output (Last 24 hours) 08/11/17 08/12/17 08/13/17 08/14/17 11:59 11:59 11:59 11:59 Intake Total 2162 3729 Output Total 500 1200 2400 Balance -694 648 6551 Weight 63 kg 63.7 kg 65 kg Microbiology Results (Last 24 hours) 08/11/17 02:15 Blood Blood Culture Gram Stain - Pending 08/11/17 02:15 Blood Blood Culture - Preliminary NO GROWTH TO DATE 08/11/17 00:05 Blood Blood Culture Gram Stain - Pending 08/11/17 00:05 Blood Blood Culture - Preliminary NO GROWTH TO DATE Laboratory Results (Last 24 hours) 08/13/17 02:41 Potassium 3.7 Orders (Last 24 hours) Category Date Time Status 1800 Calorie ADA Diet 08/13/17 Breakfast Completed Discharge Routine Discharge 08/13/17 07:43 Ordered Potassium (Lab Test) [Potassium] Urgent Lab 08/13/17 02:41 Completed Aspirin EC 81 mg [Ecotrin 81 mg] Med 08/13/17 10:00 Discontinued 81 mg PO DAILY Atenolol 50 mg [Tenormin 50 mg] Med 08/12/17 22:00 Discontinued 12.5 mg PO BID Balsam New/Zwolle Oil [Venelex Ointment] Med 08/13/17 10:00 Discontinued 60 gm TP TID Clindamycin HCl 150 mg [Cleocin 150 mg Capsule] Med 08/12/17 22:00 Discontinued 300 mg PO QID Ferrous Sulfate 325 mg [Feosol 325 mg] Med 08/13/17 10:00 Discontinued 325 mg PO TID Gemfibrozil 600 mg [Lopid 600 mg] Med 08/13/17 10:00 Discontinued 600 mg PO DAILY Levothyroxine Sodium 125 Mcg [Synthroid 125 Mcg] Med 08/13/17 10:00 Discontinued 125 mcg PO DAILY Lisinopril 5 mg [Zestril 5 MG] Med 08/13/17 10:00 Discontinued 2.5 mg PO DAILY Metoclopramide HCl 5 mg [Reglan 5 MG] Med 08/12/17 22:00 Discontinued 5 mg PO BID PANTOPRAZOLE 40 mg Tablet [Protonix 40MG Tablet] Med 08/13/17 10:00 Discontinued 40 mg PO DAILY Simvastatin 20Mg [Zocor 20Mg] Med 08/12/17 22:00 Discontinued 40 mg PO HS Patient Care Notes (Last 24 hours) 08/13/17 11:03 Nursing Note by Caron Cramer Spoke with Daughter Amy, gave discharge instructions as well. Sent prescription to [facility] in [place] per her request due to [facility] in [place] being closed on Monday. Initialized on 08/13/17 11:03 - END OF NOTE 08/13/17 10:49 Nursing Note by Caron Cramer Pt taken per [facility] to home at this time. Pt given discharge instructions and denies questions/concerns. Attempted to call daughterAmy and review discharge instructions with her as well. Left message to return phone call. Will continue to try to call. Initialized on 08/13/17 10:49 - END OF NOTE 08/13/17 10:25 (created 08/13/17 10:58) Case Management Note by Yulissa Garrison [facility] NOTIFIED OF DISCHARGE. SPOKE WITH AMY. Initialized on 08/13/17 10:58 - END OF NOTE - Vitals & Intake/Output Vital Signs: Vital Signs Temperature 98.2 F 08/13/17 07:22 Pulse Rate 77 08/13/17 09:35 Respiratory Rate 16 08/13/17 08:00 Blood Pressure 166/76 08/13/17 09:35 O2 Sat by Pulse Oximetry 98 08/13/17 07:22 Oxygen-Last Documented O2 Percentage 1 Liter = 24% Intake & Output: Intake & Output 08/11/17 08/12/17 08/13/17 08/14/17 11:59 11:59 11:59 11:59 Intake Total 2162 3729 Output Total 500 1200 2400 Balance -934 531 9116 Weight 63 kg 63.7 kg 65 kg - Lab Result Diagrams: 08/12/17 05:25 08/13/17 02:41 Lab Results-Last 24 Hrs: Accuchecks Date 08/12/17 Date 08/12/17 Accucheck Value: 122 Accucheck Value: 177 Lab Results-Last 24 Hours 08/13/17 Range/Units 02:41 Potassium 3.7 (3.5-5.1) mmol/L Micro Results-Entire Visit: Accuchecks Date 08/12/17 Date 08/12/17 Accucheck Value: 122 Accucheck Value: 177 Discharge Exam General Appearance: no apparent distress, alert Neurologic Exam: alert, oriented x 3, cooperative, normal mood/affect, nml cerebellar function, sensation nml, No motor deficits Skin Exam: normal color, warm, dry Eye Exam: PERRL, EOMI, eyes nml inspection Ears, Nose, Throat Exam: normal ENT inspection, pharynx normal, moist mucous membranes Neck Exam: normal inspection, non-tender, supple, full range of motion Respiratory Exam: normal breath sounds, lungs clear, No respiratory distress Cardiovascular Exam: regular rate/rhythm, normal heart sounds Gastrointestinal/Abdomen Exam: soft, No tenderness, No mass Extremity Exam: normal inspection, normal range of motion Back Exam: normal inspection, normal range of motion, No CVA tenderness, No vertebral tenderness Pelvic Exam: deferred Rectal Exam: deferred Final Diagnosis/Problem List - Final Discharge Diagnosis/Problem (1) Left lower lobe pneumonia Status: Resolved Onset Date: ~08/11/17 (2) Pancreatitis Status: Resolved Onset Date: ~08/11/17 (3) Type 2 diabetes mellitus Status: Chronic (4) Decubitus skin ulcer Status: Chronic Priority: Low - Discharge Discharge Date: 08/13/17 Disposition: Home Health @ Other In State Condition: Fair Prescriptions: New Cephalexin [Keflex] 500 mg PO QID 7 Days #28 capsule Continue Gemfibrozil 600 mg [Lopid 600 mg] 600 mg PO DAILY Atenolol 25 mg PO BID Simvastatin 40 mg [Zocor 40 mg] 40 mg PO HS Aspirin 81 mg PO DAILY Levothyroxine Sodium 125 mcg PO DAILY #30 tablet PANTOPRAZOLE 40 mg Tablet [Protonix 40MG Tablet] 40 mg PO DAILY #30 tab Insulin Aspart [NovoLOG Insulin] 7 units SQ TIDWM Lisinopril [Zestril] 2.5 mg PO DAILY Metoclopramide HCl 5 mg PO BID Metoclopramide HCl [Reglan] 2.5 mg PO AC Ferrous Sulfate [Iron] 325 mg PO TID Insulin Glargine [Lantus Insulin] 42 units SQ HS Balsam New/Zwolle Oil [Venelex Ointment] 60 gm TP TID Multivitamin [Multi-Vitamin Daily] 1 tab PO DAILY Instructions: Pneumonia in Adults, Pancreatitis Follow up with: FELICIA LOPEZ MD [Primary Care Provider] - 1 Week Forms: Ambulance Transport Record, Discharge Instructions, Patient Portal Information
== END 2017-08-13 10:42 | disposition home health service (06) | DRG 193 ==
LOC: ED 22:08 → OBSVTOIN 08-11 03:58 → MED SURG 08-11 03:58 → INTOOBSV 08-11 03:58
PROVIDERS: ADMIT General Practice; ATTEND General Practice
DX: K85.90 Acute pancreatitis without necrosis or infection, unspecified (principal); J18.1 Lobar pneumonia, unspecified organism; K59.00 Constipation, unspecified; Z79.4 Long term (current) use of insulin; L89.90 Pressure ulcer of unspecified site, unspecified stage; E11.9 Type 2 diabetes mellitus without complications; E03.9 Hypothyroidism, unspecified; M19.90 Unspecified osteoarthritis, unspecified site; Z85.3 Personal history of malignant neoplasm of breast; I10 Essential (primary) hypertension; K44.9 Diaphragmatic hernia without obstruction or gangrene; Z79.899 Other long term (current) drug therapy; Z87.891 Personal history of nicotine dependence
CPT/HCPCS: 36415; 71045; 74176; 80053; 81002; 82150; 83036; 83690; 84132; 84484; 85025; 87040; 93005; 96360; 96361; 99285; P9612; J0456; J0696; J3480; A9270-GY

== ENCOUNTER 2018-01-20 16:46 | Observation (INO) | payer MEDICARE ==
--- NOTE | 2018-01-20 17:20 | ERPHSYRPT ---
- History of Present Illness Time Seen by Provider: 01/20/18 17:13 Historian: patient, EMS Exam Limitations: other (dementia) Patient Subjective Stated Complaint: pt reports sudden onset of nausea today, reports she had n[place]ian rice for lunch and had a good appetite and suddenly felt ill. reports 3 episodes of vomiting [employer]ANT [employer]. Triage Nursing Assessment: pt is aox3, pupils perrl, afebrile, resps eay and non labored, radial pulses strong and equal. abd is firm, non tender with palpation, bowel sounds are present and normoactive x4. pt skin is pale warm dry. 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 foot drop noted to the right lower extremity. pt is bedridden. Physician History: The patient is a 77-year-old female with her daughter brought in by ambulance from her home where she had a sudden onset of vomiting and abdominal pain. She vomited 3 times. She now states she has no pain. She was given Zofran 4 mg by IV in the ambulance. She had a recent episode of pancreatitis. She denies fever or chills. She is a poor historian. She has a past medical history of pancreatitis, gastroparesis, diabetes, left leg below the knee amputation, high cholesterol, hypertension, and hypothyroidism. Timing/Duration: today, hour(s) (3), resolved prior to arrival (after zofran), sudden Activities at Onset: none Quality: stabbing Abdominal Pain Onset Location: epigastric Pain Radiation: no radiation Severity of Pain-Max: moderate Severity of Pain-Current: none Modifying Factors: Improves With: eating, vomiting Associated Symptoms: nausea, vomiting, No diarrhea Previous symptoms: no prior history Allergies/Adverse Reactions: Penicillins Allergy (Verified 08/10/17 22:41) tomato [Tomato] Allergy (Verified 08/10/17 22:41) Home Medications: Aspirin 81 mg PO DAILY 11/10/13 [History] Atenolol 25 mg PO BID 11/10/13 [History] Gemfibrozil 600 mg [Lopid 600 mg] 600 mg PO DAILY 11/10/13 [History] Simvastatin 40 mg [Zocor 40 mg] 40 mg PO HS 11/10/13 [History] Insulin Aspart [NovoLOG Insulin] 7 units SQ TIDWM 03/30/17 [History] Lisinopril [Zestril] 2.5 mg PO DAILY 03/30/17 [History] Metoclopramide HCl 5 mg PO BID 03/30/17 [History] Balsam [place] Oil [Venelex Ointment] 60 gm TP TID 08/11/17 [History] Ferrous Sulfate [Iron] 325 mg PO TID 08/11/17 [History] Insulin Glargine [Lantus Insulin] 42 units SQ HS 08/11/17 [History] Metoclopramide HCl [Reglan] 2.5 mg PO AC 08/11/17 [History] Multivitamin [Multi-Vitamin Daily] 1 tab PO DAILY 08/11/17 [History] Hx Tetanus, Diphtheria Vaccination/Date Given: Yes Hx Influenza Vaccination/Date Given: Yes Hx Pneumococcal Vaccination/Date Given: No Immunizations Up to Date: Yes - Review of Systems Constitutional: No Fever, No Chills Eyes: No Symptoms Ears, Nose, & Throat: No Symptoms Respiratory: No Cough, No Dyspnea Cardiac: No Chest Pain, No Edema, No Syncope Abdominal/Gastrointestinal: Abdominal Pain, Nausea, Vomiting Genitourinary Symptoms: No Dysuria Musculoskeletal: No Back Pain, No Neck Pain Skin: No Rash Neurological: No Dizziness, No Focal Weakness, No Sensory Changes Psychological: No Symptoms Endocrine: No Symptoms Hematologic/Lymphatic: No Symptoms Immunological/Allergic: No Symptoms All Other Systems: Reviewed and Negative - Past Medical History Pertinent Past Medical History: Yes Neurological History: No Pertinent History ENT History: Glaucoma Cardiac History: No Pertinent History Respiratory History: No Pertinent History Endocrine Medical History: Diabetes Type II, Hypothyroidism Musculoskeletal History: Osteoarthritis GI Medical History: Other History: No Pertinent History Psycho-Social History: No Pertinent History Female Reproductive Disorders: Breast Cancer Other Medical History: HTN. IDDM. Hypothryoidism. Breast CA. Hiatal Hernia. pt poor historian, recalled from ER documentation - Past Surgical History Past Surgical History: Yes Neuro Surgical History: No Pertinent History Cardiac: No Pertinent History Respiratory: No Pertinent History Gastrointestinal: No Pertinent History Genitourinary: No Pertinent History Musculoskeletal: Amputation, Other Female Surgical History: Lumpectomy Other Surgical History: oral surgery - wisdom teeth. back surgery - disc removed - Social History Smoking Status: Former smoker Exposure to second hand smoke: No Drug Use: none Patient Lives Alone: No - Female History Hx Now: No - Nursing Vital Signs Nursing Vital Signs: Initial Vital Signs Temperature 98.5 F 01/20/18 16:47 Pulse Rate 92 H 01/20/18 16:47 Respiratory Rate 20 01/20/18 16:47 Blood Pressure 176/87 01/20/18 16:47 O2 Sat by Pulse Oximetry 100 01/20/18 16:47 Pain Scale Pain Intensity 0 - Physical Exam General Appearance: no apparent distress, alert Eye Exam: PERRL/EOMI, eyes nml inspection Ears, Nose, Throat Exam: normal ENT inspection, pharynx normal, moist mucous membranes Neck Exam: normal inspection, non-tender, supple, full range of motion Respiratory Exam: normal breath sounds, lungs clear, No respiratory distress Cardiovascular Exam: regular rate/rhythm, normal heart sounds Gastrointestinal/Abdomen Exam: normal bowel sounds, No tenderness, No rebound Pelvic Exam: not done Rectal Exam: not done Back Exam: normal inspection, normal range of motion, No CVA tenderness, No vertebral tenderness Extremity Exam: other (BTK left leg), No pedal edema Neurologic Exam: alert, oriented x 3, cooperative, normal mood/affect, nml cerebellar function, sensation nml, No motor deficits Skin Exam: normal color, warm, dry SpO2 Interpretation: normal SpO2: 100 Oxygen Delivery: Room Air - CT Exams Abdomen/Pelvis CT Interpretation: Tele-radiologist Report (per Dr Randloph), Other (vesry large distention of stomach and distention of rectosigmoid colon suggesting ileus or mitali obstruction.) Ordered Tests: Active Orders 24 hr Category Date Time Status IV Insertion STAT Care 01/20/18 17:24 Active ABDOMEN AND PELVIS W/0 CONTRAS [CT] Stat Exams 01/20/18 17:24 Taken AMYLASE Stat Lab 01/20/18 17:50 Completed CBC W DIFF Stat Lab 01/20/18 17:50 Completed CMP Stat Lab 01/20/18 17:50 Completed LIPASE Stat Lab 01/20/18 17:50 Completed Lactic Acid Stat Lab 01/20/18 17:24 Completed Manual Differential NC Stat Lab 01/20/18 17:50 Completed TROPONIN Q3H Lab 01/20/18 17:50 Completed TROPONIN Q3H Lab 01/20/18 20:30 Ordered TROPONIN Q3H Lab 01/20/18 23:30 Ordered TROPONIN Q3H Lab 01/21/18 02:30 Ordered TROPONIN Q3H Lab 01/21/18 05:30 Ordered Medication Summary Generic Name Dose Route Start Last Admin Trade Name Yareli PRN Reason Stop Dose Admin Sodium Chloride 1,000 mls @ 100 mls/hr 01/20/18 17:30 01/20/18 17:32 Sodium Chloride 0.9% 1000 Ml IV 02/19/18 17:29 100 mls/hr .Q10H CINTHIA Administration Discontinued Medications Generic Name Dose Route Start Last Admin Trade Name Yareli PRN Reason Stop Dose Admin Potassium Chloride 20 meq 01/20/18 18:30 01/20/18 18:53 Klor Con 10 Meq PO 01/20/18 18:31 20 meq STAT ONE Administration Potassium Chloride Confirm 01/20/18 18:48 Klor Con 10 Meq Administered 01/20/18 18:49 Dose 20 meq PO .STK-MED ONE Lab/Rad Data: Laboratory Result Diagrams 01/20/18 17:50 01/20/18 17:50 Laboratory Results 01/20/18 01/20/18 01/20/18 Range/Units 17:50 17:50 17:50 WBC 17.6 H (4.0-10.5) K/mm3 RBC 4.86 (4.1-5.4) M/mm3 Hgb 14.2 (12.0-16.0) gm/dl Hct 42.9 (35-47) % MCV 88.3 (78-100) fl MCH 29.2 (26-32) pg MCHC 33.1 (32-36) g/dl RDW 15.4 H (11.5-14.0) % Plt Count 319 (150-450) K/mm3 MPV 9.0 (6-9.5) fl Absolute Granulocytes 15.34 H (1.4-6.9) Sodium 140 (137-145) mmol/L Potassium 3.3 L (3.5-5.1) mmol/L Chloride 105 (98-107) mmol/L Carbon Dioxide 24 (22-30) mmol/L Anion Gap 14.2 (5-15) MEQ/L BUN 24 H (7-17) mg/dL Creatinine 0.78 (0.52-1.04) mg/dL Estimated GFR > 60.0 ML/MIN Glucose 178 H (74-106) mg/dL Lactic Acid (0.4-2.0) Calcium 10.1 (8.4-10.2) mg/dL Total Bilirubin 0.30 (0.2-1.3) mg/dL AST 28 (14-36) U/L ALT 18 (0-35) U/L Alkaline Phosphatase 123 (38-126) U/L Troponin I < 0.012 (0.000-0.034) ng/mL Serum Total Protein 7.5 (6.3-8.2) g/dL Albumin 4.1 (3.5-5.0) g/dL Amylase 53 (30-110) U/L Lipase 119 (23-300) U/L 01/20/18 Range/Units 17:24 WBC (4.0-10.5) K/mm3 RBC (4.1-5.4) M/mm3 Hgb (12.0-16.0) gm/dl Hct (35-47) % MCV (78-100) fl MCH (26-32) pg MCHC (32-36) g/dl RDW (11.5-14.0) % Plt Count (150-450) K/mm3 MPV (6-9.5) fl Absolute Granulocytes (1.4-6.9) Sodium (137-145) mmol/L Potassium (3.5-5.1) mmol/L Chloride (98-107) mmol/L Carbon Dioxide (22-30) mmol/L Anion Gap (5-15) MEQ/L BUN (7-17) mg/dL Creatinine (0.52-1.04) mg/dL Estimated GFR ML/MIN Glucose (74-106) mg/dL Lactic Acid 1.2 (0.4-2.0) Calcium (8.4-10.2) mg/dL Total Bilirubin (0.2-1.3) mg/dL AST (14-36) U/L ALT (0-35) U/L Alkaline Phosphatase (38-126) U/L Troponin I (0.000-0.034) ng/mL Serum Total Protein (6.3-8.2) g/dL Albumin (3.5-5.0) g/dL Amylase (30-110) U/L Lipase (23-300) U/L - Progress Progress: improved Discussed with : Jeanine Will see patient in: hospital (observation) Counseled pt/family regarding: lab results, diagnosis, rad results - Departure Time of Disposition: 19:52 Departure Disposition: Observation (per Dr Lopez for Dr Paty Lopez) Clinical Impression: Abdominal pain, Hypokalemia Condition: Stable Critical Care Time: No Referrals: FELICIA LOPEZ MD [Primary Care Provider] -
[2018-01-20] MEDS: Sodium Chloride 0.9% 1000 ML 1,000 ML IV SCH (17:32)
[2018-01-20 17:53] LABS: Granulocyte Absolute (ANC) 15.34 (1.4-6.9); Hematocrit 42.9 % (35-47); Hemoglobin 14.2 gm/dl (12.0-16.0); Mean Cell Volume 88.3 fl (78-100); Mean Corpuscular Hemoglobin 29.2 pg (26-32); Mean Corpuscular Hgb Concent. 33.1 g/dl (32-36); Platelet Count 319 K/mm3 (150-450); Red Blood Count 4.86 M/mm3 (4.1-5.4); Red Cell Distribution Width 15.4 % (11.5-14.0); White Blood Count 17.6 K/mm3 (4.0-10.5)
[2018-01-20 18:13] LABS: ALBUMIN 4.1 g/dL (3.5-5.0); ALKALINE PHOSPHATASE 123 U/L (38-126); AMYLASE 53 U/L (30-110); ANION GAP 14.2 MEQ/L (5-15); BLOOD UREA NITROGEN 24 mg/dL (7-17); CHLORIDE 105 mmol/L (98-107); Calcium 10.1 mg/dL (8.4-10.2); Carbon Dioxide 24 mmol/L (22-30); Creatinine 1 0.78 mg/dL (0.52-1.04); Glucose 178 mg/dL (74-106); LIPASE 119 U/L (23-300); Potassium 3.3 mmol/L (3.5-5.1); SGOT/AST 28 U/L (14-36); SGPT/ALT 18 U/L (0-35); SODIUM 140 mmol/L (137-145); Total Protein 7.5 g/dL (6.3-8.2)
[2018-01-20] MEDS ORDERED: Klor Con 10 MEQ PO ONE ×2 (18:30→18:48)
--- NOTE | 2018-01-20 19:59 | XRAY ---
Indication: Abdomen pain, bloating, nausea, and vomiting. Multiple contiguous axial images obtained through the abdomen and pelvis without contrast as ordered. Comparison: August 11, 2017. Lung bases demonstrates mild bibasilar atelectasis/scarring. No consolidation or effusion. Heart is not enlarged. Stomach is again markedly distended with food/fluid. Gastroparesis versus outlet obstruction not completely excluded. There remains distal sigmoid/rectal fecal impaction less than before with distended proximal sigmoid colon. No free fluid/air. Stable large gallstone, nonobstructing left renal micro-calculi, posterior urinary bladder micro-calculus versus bladder wall calcification, and calcified uterine fibroids. Remaining liver, pancreas, spleen, adrenal glands, kidneys, ureters, and bladder appear unremarkable for noncontrast exam. There remains moderate scattered vascular calcifications. No AAA. Osseous structures again demonstrates diffuse osteopenia and moderate multilevel degenerative spondylosis. Impression: 1. Again food/fluid distended stomach. Rule out gastroparesis versus outlet obstruction. 2. Interval diminished sigmoid and rectal fecal impaction again with distended proximal sigmoid colon. 3. Stable posterior urinary bladder micro-calculus versus bladder wall calcification. 4. Stable gallstone, nonobstructing left renal micro-calculi, and calcified uterine fibroids. Comment: Preliminary interpretation was made by C. No critical discrepancy.
[2018-01-20] MEDS ORDERED: Zofran 4 MG/2 ML VIAL IV PRN (20:50)
[2018-01-21] MEDS: Sodium Chloride 0.9% 1000 ML 1,000 ML IV SCH ×3 (03:23→22:04)
[2018-01-21 04:56] LABS: BAND 10 % (0.0-2.0); Eosinophil 1 % (0.00-3.0); Lymphocytes 6 % (24-44); Monocyte 3 % (0.0-12.0); Neutrophils 80 % (36.0-66.0); Platelet Estimate NORMAL (NORMAL); Total Cells Counted 100
[2018-01-21 04:57] LABS: ANISOCYTOSIS 2+
[2018-01-21 04:58] LABS: Poikilocytosis 1+
[2018-01-21 05:42] LABS: Granulocyte Absolute (ANC) 10.44 (1.4-6.9); Hematocrit 38.7 % (35-47); Hemoglobin 12.4 gm/dl (12.0-16.0); Mean Cell Volume 89.8 fl (78-100); Mean Corpuscular Hemoglobin 28.8 pg (26-32); Mean Platelet Volume 9.1 fl (6-9.5); Platelet Count 297 K/mm3 (150-450); Red Blood Count 4.31 M/mm3 (4.1-5.4); Red Cell Distribution Width 15.2 % (11.5-14.0); White Blood Count 14.9 K/mm3 (4.0-10.5)
[2018-01-21 06:09] LABS: ANION GAP 11.9 MEQ/L (5-15); BLOOD UREA NITROGEN 22 mg/dL (7-17); CHLORIDE 109 mmol/L (98-107); Calcium 9.4 mg/dL (8.4-10.2); Carbon Dioxide 24 mmol/L (22-30); Creatinine 1 0.67 mg/dL (0.52-1.04); Glucose 141 mg/dL (74-106); Potassium 3.3 mmol/L (3.5-5.1); SODIUM 142 mmol/L (137-145)
[2018-01-21 06:40] LABS: Eosinophil 2 % (0.00-3.0); Lymphocytes 21 % (24-44); Monocyte 3 % (0.0-12.0); Neutrophils 74 % (36.0-66.0); Platelet Estimate NORMAL (NORMAL); Total Cells Counted 100
--- NOTE | 2018-01-21 08:54 | PCM.HP ---
History of Present Illness - Chief Complaint Chief Complaint: Adb pain, Ileus, hypokalemia History of Present Illness: is a 77 year old female patient brought in by ambulance from her home where she had a sudden onset of vomiting and abdominal pain. She vomited 3 times. She now states she has no pain. She was given Zofran 4 mg by IV in the ambulance. She had a recent episode of pancreatitis. She denies fever or chills. - Review of Systems Constitutional: Lethargy, Weakness, No Fever, No Chills Eyes: No Symptoms Ears, Nose, & Throat: No Symptoms Respiratory: No Cough, No Short Of Breath Cardiac: No Chest Pain, No Edema, No Syncope Abdominal/Gastrointestinal: Abdominal Pain, Nausea, Vomiting, No Diarrhea Genitourinary Symptoms: No Dysuria Musculoskeletal: No Back Pain, No Neck Pain Skin: No Rash Neurological: No Dizziness, No Focal Weakness, No Sensory Changes Psychological: No Symptoms Endocrine: No Symptoms Hematologic/Lymphatic: No Symptoms Immunological/Allergic: No Symptoms Medications & Allergies Home Medications: Home Medication List Aspirin 81 mg PO DAILY 11/10/13 [History Confirmed 08/11/17] Atenolol 12.5 mg PO BID 11/10/13 [History Confirmed 01/20/18] Gemfibrozil 600 mg [Lopid 600 mg] 600 mg PO DAILY 11/10/13 [History Confirmed 01/20/18] Simvastatin 40 mg [Zocor 40 mg] 40 mg PO HS 11/10/13 [History Confirmed 01/20/18 ] Levothyroxine Sodium 125 mcg PO DAILY #30 tablet 11/14/13 [Rx Confirmed 01/20/18 ] PANTOPRAZOLE 40 mg Tablet [Protonix 40MG Tablet] 40 mg PO DAILY #30 tab [Rx Confirmed 01/20/18] Insulin Aspart [NovoLOG Insulin] 10 units SQ TIDAC 03/30/17 [History Confirmed 01/20/18] Lisinopril [Zestril] 2.5 mg PO DAILY 03/30/17 [History Confirmed 01/20/18] Metoclopramide HCl 5 mg PO BID 03/30/17 [History Confirmed 01/20/18] Ferrous Sulfate [Iron] 325 mg PO TID 08/11/17 [History Confirmed 08/11/17] Insulin Glargine [Lantus Insulin] 35 units SQ HS 08/11/17 [History Confirmed ] Multivitamin [Multi-Vitamin Daily] 1 tab PO DAILY 08/11/17 [History Confirmed ] Gabapentin 300 mg PO TID 01/20/18 [History Confirmed 01/20/18] Nystatin 1 gm TOP TID 01/20/18 [History Confirmed 01/20/18] Allergies/Adverse Reactions: Allergies Allergy/AdvReac Type Severity Reaction Status Date / Time Penicillins Allergy Verified 08/10/17 22:41 tomato [Tomato] Allergy Verified 01/20/18 21:08 - Past Medical History Past Medical History: Yes Neurological History: No Pertinent History ENT History: Glaucoma Cardiac History: No Pertinent History Respiratory History: No Pertinent History Endocrine Medical History: Diabetes Type II, Hypothyroidism Musculoskelatal History: Osteoarthritis GI Medical History: Other History: No Pertinent History Pyscho-Social History: No Pertinent History Reproductive Disorders: Breast Cancer Comment: HTN, IDDM, Hypothryoidism, Breast CA. Hiatal Hernia, Gastroparesis. - Female History Hx Last Menstrual Period: Post Are you now?: No - Past Surgical History Past Surgical History: Yes Neuro Surgical History: No Pertinent History Cardiac History: No Pertinent History Respiratory Surgery: No Pertinent History GI Surgical History: No Pertinent History Genitourinary Surgical Hx: No Pertinent History Musculskeletal Surgical Hx: Amputation, Other Female Surgical History: Lumpectomy Other Surgical History: oral surgery - wisdom teeth. back surgery - disc removed - Social History Smoking Status: Former smoker How long have you smoked: few years Exposure to second hand smoke: No Alcohol: None Drug Use: none - Physical Exam Vital Signs: Vital Signs - 24 hr Temp Pulse Resp BP BP Pulse Ox 01/21/18 07:29 97.7 F 74 20 135/63 97 01/21/18 04:03 98.6 F 83 16 134/65 95 01/20/18 23:46 98.5 F 94 H 18 153/67 95 01/20/18 21:07 98.3 F 81 18 130/65 95 01/20/18 20:16 100 01/20/18 18:46 92 H 18 168/83 97 01/20/18 16:47 98.5 F 92 H 20 176/87 100 General Appearance: mild distress, alert Neurologic Exam: alert, oriented x 3, cooperative, normal mood/affect, nml cerebellar function, nml station & gait, sensation nml, No motor deficits Eye Exam: PERRL/EOMI, eyes nml inspection Ears, Nose, Throat Exam: normal ENT inspection, TMs normal, pharynx normal, moist mucous membranes Neck Exam: normal inspection, non-tender, supple, full range of motion Respiratory Exam: normal breath sounds, lungs clear, No respiratory distress Cardiovascular Exam: regular rate/rhythm, normal heart sounds, normal peripheral pulses Gastrointestinal/Abdomen Exam: soft, normal bowel sounds, No tenderness, No mass Back Exam: normal inspection, normal range of motion, No CVA tenderness, No vertebral tenderness Extremity Exam: normal inspection, normal range of motion, pelvis stable Skin Exam: normal color, warm, dry, No rash Lymphatic Exam: No adenopathy Results - Labs Lab/Micro Results: Lab Results-Last 24 Hours 01/20/18 01/20/18 01/20/18 Range/Units 17:24 17:50 17:50 WBC 17.6 H (4.0-10.5) K/mm3 RBC 4.86 (4.1-5.4) M/mm3 Hgb 14.2 (12.0-16.0) gm/dl Hct 42.9 (35-47) % MCV 88.3 (78-100) fl MCH 29.2 (26-32) pg MCHC 33.1 (32-36) g/dl RDW 15.4 H (11.5-14.0) % Plt Count 319 (150-450) K/mm3 MPV 9.0 (6-9.5) fl Absolute Granulocytes 15.34 H (1.4-6.9) Segmented Neutrophils 80 H (36.0-66.0) % Band Neutrophils 10 H (0.0-2.0) % Lymphocytes (Manual) 6 L (24-44) % Monocytes (Manual) 3 (0.0-12.0) % Eosinophils (Manual) 1 (0.00-3.0) % Platelet Estimate NORMAL (NORMAL) RBC Morphology ABNORMAL Poikilocytosis 1+ Anisocytosis 2+ Sodium 140 (137-145) mmol/L Potassium 3.3 L (3.5-5.1) mmol/L Chloride 105 (98-107) mmol/L Carbon Dioxide 24 (22-30) mmol/L Anion Gap 14.2 (5-15) MEQ/L BUN 24 H (7-17) mg/dL Creatinine 0.78 (0.52-1.04) mg/dL Estimated GFR > 60.0 ML/MIN Glucose 178 H (74-106) mg/dL Lactic Acid 1.2 (0.4-2.0) Calcium 10.1 (8.4-10.2) mg/dL Total Bilirubin 0.30 (0.2-1.3) mg/dL AST 28 (14-36) U/L ALT 18 (0-35) U/L Alkaline Phosphatase 123 (38-126) U/L Troponin I (0.000-0.034) ng/mL Serum Total Protein 7.5 (6.3-8.2) g/dL Albumin 4.1 (3.5-5.0) g/dL Amylase 53 (30-110) U/L Lipase 119 (23-300) U/L 01/20/18 01/20/18 01/20/18 Range/Units 17:50 20:45 23:30 WBC (4.0-10.5) K/mm3 RBC (4.1-5.4) M/mm3 Hgb (12.0-16.0) gm/dl Hct (35-47) % MCV (78-100) fl MCH (26-32) pg MCHC (32-36) g/dl RDW (11.5-14.0) % Plt Count (150-450) K/mm3 MPV (6-9.5) fl Absolute Granulocytes (1.4-6.9) Segmented Neutrophils (36.0-66.0) % Band Neutrophils (0.0-2.0) % Lymphocytes (Manual) (24-44) % Monocytes (Manual) (0.0-12.0) % Eosinophils (Manual) (0.00-3.0) % Platelet Estimate (NORMAL) RBC Morphology Poikilocytosis Anisocytosis Sodium (137-145) mmol/L Potassium (3.5-5.1) mmol/L Chloride (98-107) mmol/L Carbon Dioxide (22-30) mmol/L Anion Gap (5-15) MEQ/L BUN (7-17) mg/dL Creatinine (0.52-1.04) mg/dL Estimated GFR ML/MIN Glucose (74-106) mg/dL Lactic Acid (0.4-2.0) Calcium (8.4-10.2) mg/dL Total Bilirubin (0.2-1.3) mg/dL AST (14-36) U/L ALT (0-35) U/L Alkaline Phosphatase (38-126) U/L Troponin I < 0.012 < 0.012 < 0.012 (0.000-0.034) ng/mL Serum Total Protein (6.3-8.2) g/dL Albumin (3.5-5.0) g/dL Amylase (30-110) U/L Lipase (23-300) U/L 01/21/18 01/21/18 01/21/18 Range/Units 02:30 05:10 05:10 WBC 14.9 H (4.0-10.5) K/mm3 RBC 4.31 (4.1-5.4) M/mm3 Hgb 12.4 (12.0-16.0) gm/dl Hct 38.7 (35-47) % MCV 89.8 (78-100) fl MCH 28.8 (26-32) pg MCHC 32.0 (32-36) g/dl RDW 15.2 H (11.5-14.0) % Plt Count 297 (150-450) K/mm3 MPV 9.1 (6-9.5) fl Absolute Granulocytes 10.44 H (1.4-6.9) Segmented Neutrophils 74 H (36.0-66.0) % Band Neutrophils (0.0-2.0) % Lymphocytes (Manual) 21 L (24-44) % Monocytes (Manual) 3 (0.0-12.0) % Eosinophils (Manual) 2 (0.00-3.0) % Platelet Estimate NORMAL (NORMAL) RBC Morphology NORMAL Poikilocytosis Anisocytosis Sodium (137-145) mmol/L Potassium (3.5-5.1) mmol/L Chloride (98-107) mmol/L Carbon Dioxide (22-30) mmol/L Anion Gap (5-15) MEQ/L BUN (7-17) mg/dL Creatinine (0.52-1.04) mg/dL Estimated GFR ML/MIN Glucose (74-106) mg/dL Lactic Acid (0.4-2.0) Calcium (8.4-10.2) mg/dL Total Bilirubin (0.2-1.3) mg/dL AST (14-36) U/L ALT (0-35) U/L Alkaline Phosphatase (38-126) U/L Troponin I < 0.012 < 0.012 (0.000-0.034) ng/mL Serum Total Protein (6.3-8.2) g/dL Albumin (3.5-5.0) g/dL Amylase (30-110) U/L Lipase (23-300) U/L 01/21/18 Range/Units 05:10 WBC (4.0-10.5) K/mm3 RBC (4.1-5.4) M/mm3 Hgb (12.0-16.0) gm/dl Hct (35-47) % MCV (78-100) fl MCH (26-32) pg MCHC (32-36) g/dl RDW (11.5-14.0) % Plt Count (150-450) K/mm3 MPV (6-9.5) fl Absolute Granulocytes (1.4-6.9) Segmented Neutrophils (36.0-66.0) % Band Neutrophils (0.0-2.0) % Lymphocytes (Manual) (24-44) % Monocytes (Manual) (0.0-12.0) % Eosinophils (Manual) (0.00-3.0) % Platelet Estimate (NORMAL) RBC Morphology Poikilocytosis Anisocytosis Sodium 142 (137-145) mmol/L Potassium 3.3 L (3.5-5.1) mmol/L Chloride 109 H (98-107) mmol/L Carbon Dioxide 24 (22-30) mmol/L Anion Gap 11.9 (5-15) MEQ/L BUN 22 H (7-17) mg/dL Creatinine 0.67 (0.52-1.04) mg/dL Estimated GFR > 60.0 ML/MIN Glucose 141 H (74-106) mg/dL Lactic Acid (0.4-2.0) Calcium 9.4 (8.4-10.2) mg/dL Total Bilirubin (0.2-1.3) mg/dL AST (14-36) U/L ALT (0-35) U/L Alkaline Phosphatase (38-126) U/L Troponin I (0.000-0.034) ng/mL Serum Total Protein (6.3-8.2) g/dL Albumin (3.5-5.0) g/dL Amylase (30-110) U/L Lipase (23-300) U/L - Radiology Impressions Radiology Exams & Impressions: Radiology Procedures Category Date Time Status ABDOMEN AND PELVIS W/0 CONTRAS [CT] Stat Exams 01/20/18 17:24 Completed Assessment/Plan (1) Abdominal pain Current Visit: Yes Status: Acute Qualifiers: Abdominal location: generalized Qualified Code(s): R10.84 - Generalized abdominal pain Assessment & Plan: Last Vital Signs Temp 97.7 F 01/21/18 07:29 Pulse 74 01/21/18 07:29 Resp 20 01/21/18 07:29 BP 135/63 01/21/18 07:29 Pulse Ox 97 01/21/18 07:29 Allergies Penicillins Allergy (Verified 08/10/17 22:41) tomato [Tomato] Allergy (Verified 01/20/18 21:08) Allergic to tomato plant. Blisters when touches plant. No difficulty eating tomatoes. Active Medications Sodium Chloride (Sodium Chloride 0.9% 1000 Ml) 1,000 mls @ 100 mls/hr IV .Q10H CINTHIA Stop: 02/19/18 17:29 Last Admin: 01/21/18 03:23 Dose: 100 mls/hr Ondansetron HCl (Zofran 4 Mg/2 Ml Vial) 4 mg IV Q6H PRN PRN PRN Reason: NAUSEA/VOMITING Stop: 02/19/18 20:49 Intake & Output 01/20/18 01/21/18 11:59 11:59 Intake Total 655 Output Total 950 Balance -295 Weight 63.8 kg Orders 01/20/18 22:03 Nutritional Admission Screen 01/20/18 22:12 ACCUCHECK [Accucheck] ACHS 01/21/18 UA W/RFX UR CULTURE Urgent Lab Tests 01/20/18 01/20/18 01/20/18 17:24 17:50 17:50 WBC 17.6 H RBC 4.86 Hgb 14.2 Hct 42.9 MCV 88.3 MCH 29.2 MCHC 33.1 RDW 15.4 H Plt Count 319 MPV 9.0 Absolute Granulocytes 15.34 H Segmented Neutrophils 80 H Band Neutrophils 10 H Lymphocytes (Manual) 6 L Monocytes (Manual) 3 Eosinophils (Manual) 1 Platelet Estimate NORMAL RBC Morphology ABNORMAL Poikilocytosis 1+ Anisocytosis 2+ Sodium 140 Potassium 3.3 L Chloride 105 Carbon Dioxide 24 Anion Gap 14.2 BUN 24 H Creatinine 0.78 Estimated GFR > 60.0 Glucose 178 H Lactic Acid 1.2 Calcium 10.1 Total Bilirubin 0.30 AST 28 ALT 18 Alkaline Phosphatase 123 Troponin I Serum Total Protein 7.5 Albumin 4.1 Amylase 53 Lipase 119 01/20/18 01/20/18 01/20/18 17:50 20:45 23:30 WBC RBC Hgb Hct MCV MCH MCHC RDW Plt Count MPV Absolute Granulocytes Segmented Neutrophils Band Neutrophils Lymphocytes (Manual) Monocytes (Manual) Eosinophils (Manual) Platelet Estimate RBC Morphology Poikilocytosis Anisocytosis Sodium Potassium Chloride Carbon Dioxide Anion Gap BUN Creatinine Estimated GFR Glucose Lactic Acid Calcium Total Bilirubin AST ALT Alkaline Phosphatase Troponin I < 0.012 < 0.012 < 0.012 Serum Total Protein Albumin Amylase Lipase 01/21/18 01/21/18 01/21/18 02:30 05:10 05:10 WBC 14.9 H RBC 4.31 Hgb 12.4 Hct 38.7 MCV 89.8 MCH 28.8 MCHC 32.0 RDW 15.2 H Plt Count 297 MPV 9.1 Absolute Granulocytes 10.44 H Segmented Neutrophils 74 H Band Neutrophils Lymphocytes (Manual) 21 L Monocytes (Manual) 3 Eosinophils (Manual) 2 Platelet Estimate NORMAL RBC Morphology NORMAL Poikilocytosis Anisocytosis Sodium Potassium Chloride Carbon Dioxide Anion Gap BUN Creatinine Estimated GFR Glucose Lactic Acid Calcium Total Bilirubin AST ALT Alkaline Phosphatase Troponin I < 0.012 < 0.012 Serum Total Protein Albumin Amylase Lipase 01/21/18 05:10 WBC RBC Hgb Hct MCV MCH MCHC RDW Plt Count MPV Absolute Granulocytes Segmented Neutrophils Band Neutrophils Lymphocytes (Manual) Monocytes (Manual) Eosinophils (Manual) Platelet Estimate RBC Morphology Poikilocytosis Anisocytosis Sodium 142 Potassium 3.3 L Chloride 109 H Carbon Dioxide 24 Anion Gap 11.9 BUN 22 H Creatinine 0.67 Estimated GFR > 60.0 Glucose 141 H Lactic Acid Calcium 9.4 Total Bilirubin AST ALT Alkaline Phosphatase Troponin I Serum Total Protein Albumin Amylase Lipase Code(s): R10.9 - UNSPECIFIED ABDOMINAL PAIN (2) Hypokalemia Current Visit: Yes Status: Acute Code(s): E87.6 - HYPOKALEMIA (3) Vomiting Current Visit: Yes Status: Acute Onset Date: ~08/11/17 Qualifiers: Vomiting type: unspecified Code(s): R11.10 - VOMITING, UNSPECIFIED (4) Decubitus skin ulcer Current Visit: No Status: Chronic Qualifiers: Pressure injury location: sacral region Pressure injury stage: stage 2 Qualified Code(s): L89.152 - Pressure ulcer of sacral region, stage 2 Code(s): L89.90 - PRESSURE ULCER OF UNSPECIFIED SITE, UNSPECIFIED STAGE (5) Type 2 diabetes mellitus Current Visit: Yes Status: Chronic
[2018-01-21] MEDS ORDERED: NEURONTIN 300 MG PO PRN (11:34)
[2018-01-21] MEDS: BENTYL 20 MG PO SCH (12:08)
[2018-01-21] MEDS: ECOTRIN 81 MG PO SCH (12:08)
[2018-01-21] MEDS: SYNTHROID 125 MCG PO SCH (12:08)
[2018-01-21] MEDS: Zestril 5 MG PO SCH (12:09)
[2018-01-21] MEDS: THERAGRAN MULTIVITAMIN PO SCH (12:09)
[2018-01-21] MEDS: TENORMIN 50 MG PO SCH ×2 (12:10→22:05)
[2018-01-21] MEDS: Reglan 5 MG PO SCH ×2 (12:11→22:05)
[2018-01-21] MEDS: Protonix 40MG Tablet PO SCH (12:17)
[2018-01-21] MEDS: LOPID 600 MG PO SCH (12:18)
[2018-01-21 15:36] LABS: Appearance CLEAR (CLEAR); Bilirubin NEGATIVE (NEGATIVE); Blood NEGATIVE Ery/ul (0-5); Glucose NEGATIVE (NEGATIVE); Ketones NEGATIVE (NEGATIVE); Leukocyte Esterase NEGATIVE (NEGATIVE); Nitrite NEGATIVE (NEGATIVE); Protein,Urine Dip NEGATIVE (Negative); Specific Gravity 1.012 (1.005-1.025); Urobilinogen NEGATIVE mg/dL (0-1)
[2018-01-21] MEDS ORDERED: NovoLOG Insulin SQ SCH (16:30)
[2018-01-21] MEDS: NovoLOG Insulin SQ PRN ×2 (17:06→22:06)
[2018-01-21] MEDS ORDERED: ATENOLOL 12.5 MG PO SCH (22:00)
[2018-01-21] MEDS ORDERED: ZOCOR 20MG PO SCH (22:00)
[2018-01-21] MEDS ORDERED: Lantus Insulin SQ SCH (22:00)
[2018-01-21] MEDS ORDERED: NON-FORMULARY ITEM (Simvastatin 40 Mg [Zocor 40 Mg] 40 MG) PO SCH (22:00)
[2018-01-22] MEDS: SYNTHROID 125 MCG PO SCH (09:01)
[2018-01-22] MEDS: LOPID 600 MG PO SCH (09:01)
[2018-01-22] MEDS: THERAGRAN MULTIVITAMIN PO SCH (09:01)
[2018-01-22] MEDS: ECOTRIN 81 MG PO SCH (09:01)
[2018-01-22] MEDS: Protonix 40MG Tablet PO SCH (09:01)
[2018-01-22] MEDS: Reglan 5 MG PO SCH (09:01)
[2018-01-22] MEDS: Zestril 5 MG PO SCH (09:01)
[2018-01-22] MEDS: TENORMIN 50 MG PO SCH (09:02)
[2018-01-22] MEDS: BENTYL 20 MG PO SCH (09:04)
[2018-01-22] MEDS ORDERED: BENTYL 20 MG PO SCH (10:00)
[2018-01-22] MEDS ORDERED: NON-FORMULARY ITEM (Aspirin [Aspirin] 81 MG) PO SCH (10:00)
[2018-01-22] MEDS ORDERED: NON-FORMULARY ITEM (Multivitamin [Multi-Vitamin Daily] 1 TAB) PO SCH (10:00)
[2018-01-22 11:28] VITALS: BP 171/70; PULSE 66; O2SAT 99
--- NOTE | 2018-01-22 12:02 | PCM.DS ---
Discharge Summary Date of Admission: 01/20/18 20:46 Admitting Physician: FELICIA LOPEZ Primary Care Provider: FELICIA LOPEZ Allergies Allergies Penicillins Allergy (Verified 08/10/17 22:41) tomato [Tomato] Allergy (Verified 01/20/18 21:08) Allergic to tomato plant. Blisters when touches plant. No difficulty eating tomatoes. Hospital Summary - Hospital Course Hospital Course: Chief Complaint Diagnosis Adb pain, Ileus, hypokalemia Allergies Allergy/AdvReac Type Severity Reaction Status Date / Time Penicillins Allergy Verified 08/10/17 22:41 tomato [Tomato] Allergy Verified 01/20/18 21:08 Vital Signs (Last 24 hours) Temp Pulse Resp BP BP Pulse Ox 01/22/18 11:20 98.1 F 66 18 171/70 99 01/22/18 09:02 86 172/74 01/22/18 08:00 18 01/22/18 07:08 98.4 F 86 18 172/74 98 01/22/18 04:20 98.2 F 78 18 165/72 97 01/22/18 04:00 22 01/22/18 00:00 22 01/21/18 23:39 98.4 F 84 22 133/67 96 01/21/18 22:05 81 126/58 01/21/18 20:00 18 01/21/18 19:39 98.1 F 81 18 126/58 97 01/21/18 16:19 98.1 F 79 18 125/56 99 01/21/18 16:00 18 01/21/18 14:39 97.8 F 86 20 130/68 98 Home Medications Medication Instructions Recorded Confirmed Last Taken Type Gabapentin 300 mg PO TID PRN PRN 01/20/18 01/21/18 Unknown History Dicyclomine HCl 20 mg [Bentyl 10 mg PO DAILY 01/21/18 01/21/18 Unknown History 20 mg] Current Medications Discontinued Medications Generic Name Dose Route Start Last Admin Trade Name Freq PRN Reason Stop Dose Admin Aspirin 81 mg 01/21/18 12:00 01/22/18 09:01 Ecotrin 81 Mg PO 02/20/18 11:59 81 mg DAILY CINTHIA Administration Atenolol 12.5 mg 01/21/18 11:45 01/22/18 09:02 Tenormin 50 Mg PO 02/20/18 11:44 12.5 mg BID CINTHIA Administration Dicyclomine HCl 10 mg 01/22/18 10:00 Bentyl 20 Mg PO 02/21/18 09:59 DAILY CINTHIA Dicyclomine HCl 10 mg 01/21/18 11:45 01/22/18 09:04 Bentyl 20 Mg PO 02/20/18 11:44 10 mg DAILY CINTHIA Administration Gabapentin 300 mg 01/21/18 11:34 Neurontin 300 Mg PO 02/20/18 11:33 TID PRN PRN PAIN Gemfibrozil 600 mg 01/21/18 11:45 01/22/18 09:01 Lopid 600 Mg PO 02/20/18 11:44 600 mg DAILY CINTHIA Administration Sodium Chloride 1,000 mls @ 100 mls/hr 01/20/18 17:30 01/21/18 22:04 Sodium Chloride 0.9% 1000 Ml IV 02/19/18 17:29 100 mls/hr .Q10H CINTHIA Administration Influenza Virus Vaccine 180 mcg 01/21/18 10:00 01/21/18 12:12 Fluzone High-Dose 2018-19 Syr IM 01/21/18 10:01 180 mcg .ONCE ONE Administration Insulin Aspart unit 01/21/18 16:30 Novolog Insulin SQ 02/20/18 16:29 TIDAC CINTHIA Insulin Aspart 0 unit 01/21/18 12:15 01/21/18 22:06 Novolog Insulin SQ 02/20/18 12:14 5 unit UD PRN Administration Insulin Glargine 35 unit 01/21/18 22:00 01/21/18 22:06 Lantus Insulin SQ 02/20/18 21:59 35 unit HS CINTHIA Administration Levothyroxine Sodium 125 mcg 01/21/18 11:45 01/22/18 09:01 Synthroid 125 Mcg PO 02/20/18 11:44 125 mcg DAILY CINTHIA Administration Lisinopril 2.5 mg 01/21/18 11:45 01/22/18 09:01 Zestril 5 Mg PO 02/20/18 11:44 2.5 mg DAILY CINTHIA Administration Metoclopramide HCl 5 mg 01/21/18 11:45 01/22/18 09:01 Reglan 5 Mg PO 02/20/18 11:44 5 mg BID CINTHIA Administration Multivitamins Therapeutic 1 tab 01/21/18 11:45 01/22/18 09:01 Theragran Multivitamin PO 02/20/18 11:44 1 tab DAILY CINTHIA Administration Ondansetron HCl 4 mg 01/20/18 20:50 Zofran 4 Mg/2 Ml Vial IV 02/19/18 20:49 Q6H PRN PRN NAUSEA/VOMITING Pantoprazole Sodium 40 mg 01/21/18 11:45 01/22/18 09:01 Protonix 40mg Tablet PO 02/20/18 11:44 40 mg DAILY CINTHIA Administration Potassium Chloride 20 meq 01/20/18 18:30 01/20/18 18:53 Klor Con 10 Meq PO 01/20/18 18:31 20 meq STAT ONE Administration Potassium Chloride Confirm 01/20/18 18:48 Klor Con 10 Meq Administered 01/20/18 18:49 Dose 20 meq PO .STK-MED ONE Simvastatin 20 mg 01/21/18 22:00 01/21/18 22:05 Zocor 20mg PO 02/20/18 21:59 20 mg HS CINTHIA Administration Intake & Output (Last 24 hours) 01/20/18 01/21/18 01/22/18 01/23/18 11:59 11:59 11:59 11:59 Intake Total 655 3509 Output Total 950 2000 Balance -295 1509 Weight 63.8 kg Laboratory Results (Last 24 hours) 01/21/18 15:04 Urine Color YELLOW Urine Appearance CLEAR Urine pH 5.0 Ur Specific [place] 1.012 Urine Protein NEGATIVE Urine Ketones NEGATIVE Urine Blood NEGATIVE Urine Nitrite NEGATIVE Urine Bilirubin NEGATIVE Urine Urobilinogen NEGATIVE Ur Leukocyte Esterase NEGATIVE Urine WBC (Auto) 6-10 Urine RBC (Auto) 3-5 U Epithel Cells (Auto) RARE Urine Bacteria (Auto) RARE Unidentified Crystals 2-5 Urine Culture Reflexed NO Urine Glucose NEGATIVE Orders (Last 24 hours) Category Date Time Status Discharge Routine Discharge 01/22/18 09:29 Ordered Discharge/Telephone Order Routine Discharge 01/22/18 09:29 Active UA W/RFX UR CULTURE Urgent Lab 01/21/18 15:04 Completed Aspirin EC 81 mg [Ecotrin 81 mg] Med 01/21/18 12:00 Discontinued 81 mg PO DAILY Atenolol 50 mg [Tenormin 50 mg] Med 01/21/18 11:45 Discontinued 12.5 mg PO BID Dicyclomine HCl 20 mg [Bentyl 20 mg] Med 01/21/18 11:45 Discontinued 10 mg PO DAILY Dicyclomine HCl 20 mg [Bentyl 20 mg] Med 01/22/18 10:00 Discontinued 10 mg PO DAILY Gabapentin 300 mg [Neurontin 300 mg] Med 01/21/18 11:34 Discontinued 300 mg PO TID PRN PRN Gemfibrozil 600 mg [Lopid 600 mg] Med 01/21/18 11:45 Discontinued 600 mg PO DAILY Insulin Aspart [NovoLOG Insulin] Med 01/21/18 12:15 Discontinued 0 unit SQ UD PRN Insulin Aspart [NovoLOG Insulin] Med 01/21/18 16:30 Discontinued DOSE unit SQ TIDAC Insulin Glargine [Lantus Insulin] Med 01/21/18 22:00 Discontinued 35 unit SQ HS Levothyroxine Sodium 125 Mcg [Synthroid 125 Mcg] Med 01/21/18 11:45 Discontinued 125 mcg PO DAILY Lisinopril 5 mg [Zestril 5 MG] Med 01/21/18 11:45 Discontinued 2.5 mg PO DAILY Metoclopramide HCl 5 mg [Reglan 5 MG] Med 01/21/18 11:45 Discontinued 5 mg PO BID Multivitamins,Therapeutic Tab* [Theragran Multivitamin* Med 01/21/18 11:45 Discontinued ] 1 tab PO DAILY PANTOPRAZOLE 40 mg Tablet [Protonix 40MG Tablet] Med 01/21/18 11:45 Discontinued 40 mg PO DAILY Simvastatin 20Mg [Zocor 20Mg] Med 01/21/18 22:00 Discontinued 20 mg PO HS Patient Care Notes (Last 24 hours) 01/22/18 10:43 Nursing Note by Ewelina Cyr Spoke with Eusara at [facility] for transportation home with SC[facility]. Trip # [id number] and leg ID #[id number]. [facility] notified. Initialized on 01/22/18 10:43 - END OF NOTE 01/22/18 10:11 Nursing Note by Donna Elias patient unable to sign her name on discharge papers, but did burt signature lines with an X per self Initialized on 01/22/18 10:11 - END OF NOTE - Vitals & Intake/Output Vital Signs: Vital Signs Temperature 98.1 F 01/22/18 11:20 Pulse Rate 66 01/22/18 11:20 Respiratory Rate 18 01/22/18 11:20 Blood Pressure 171/70 01/22/18 11:20 O2 Sat by Pulse Oximetry 99 01/22/18 11:20 Intake & Output: Intake & Output 01/20/18 01/21/18 01/22/18 01/23/18 11:59 11:59 11:59 11:59 Intake Total 655 3509 Output Total 950 2000 Balance -295 1509 Weight 63.8 kg - Lab Result Diagrams: 01/21/18 05:10 01/21/18 05:10 Lab Results-Last 24 Hrs: Accuchecks Date 01/22/18 Date 01/21/18 Date 01/21/18 Time 07:30 Time 22:00 Time 16:30 Accucheck Value: 149 Accucheck Value: 244 Accucheck Value: 229 Lab Results-Last 24 Hours 01/21/18 Range/Units 15:04 Urine Color YELLOW (YELLOW) Urine Appearance CLEAR (CLEAR) Urine pH 5.0 (5-6) Ur Specific [place] 1.012 (1.005-1.025) Urine Protein NEGATIVE (Negative) Urine Ketones NEGATIVE (NEGATIVE) Urine Blood NEGATIVE (0-5) Ross/ul Urine Nitrite NEGATIVE (NEGATIVE) Urine Bilirubin NEGATIVE (NEGATIVE) Urine Urobilinogen NEGATIVE (0-1) mg/dL Ur Leukocyte Esterase NEGATIVE (NEGATIVE) Urine WBC (Auto) 6-10 (0-5) /HPF Urine RBC (Auto) 3-5 (0-2) /HPF U Epithel Cells (Auto) RARE (FEW) /HPF Urine Bacteria (Auto) RARE (NEGATIVE) /HPF Unidentified Crystals 2-5 (NEGATIVE) /HPF Urine Culture Reflexed NO (NO) Urine Glucose NEGATIVE (NEGATIVE) mg/dL Micro Results-Entire Visit: Accuchecks Date 01/22/18 Date 01/21/18 Date 01/21/18 Time 07:30 Time 22:00 Time 16:30 Accucheck Value: 149 Accucheck Value: 244 Accucheck Value: 229 - Radiology Exams Ordered Rad Exams-Entire Visit: Radiology Procedures Category Date Time Status ABDOMEN AND PELVIS W/0 CONTRAS [CT] Stat Exams 01/20/18 17:24 Completed Discharge Exam General Appearance: no apparent distress, alert Neurologic Exam: alert, oriented x 3, cooperative, normal mood/affect, nml cerebellar function, sensation nml, No motor deficits Skin Exam: normal color, warm, dry Eye Exam: PERRL, EOMI, eyes nml inspection Ears, Nose, Throat Exam: normal ENT inspection, pharynx normal, moist mucous membranes Neck Exam: normal inspection, non-tender, supple, full range of motion Respiratory Exam: normal breath sounds, lungs clear, No respiratory distress Cardiovascular Exam: regular rate/rhythm, normal heart sounds Gastrointestinal/Abdomen Exam: soft, No tenderness, No mass Extremity Exam: normal inspection, normal range of motion Back Exam: normal inspection, normal range of motion, No CVA tenderness, No vertebral tenderness Pelvic Exam: deferred Rectal Exam: deferred Final Diagnosis/Problem List - Final Discharge Diagnosis/Problem (1) Abdominal pain Status: Resolved (2) Hypokalemia Status: Resolved (3) Vomiting Status: Resolved Onset Date: ~08/11/17 (4) Decubitus skin ulcer Status: Chronic Priority: Low (5) Type 2 diabetes mellitus Status: Chronic - Discharge Discharge Date: 01/22/18 Disposition: Home, Self-Care Condition: Stable Prescriptions: Continue Gemfibrozil 600 mg [Lopid 600 mg] 600 mg PO DAILY Atenolol 12.5 mg PO BID Simvastatin 40 mg [Zocor 40 mg] 40 mg PO HS Aspirin 81 mg PO DAILY Levothyroxine Sodium 125 mcg PO DAILY #30 tablet PANTOPRAZOLE 40 mg Tablet [Protonix 40MG Tablet] 40 mg PO DAILY #30 tab Insulin Aspart [NovoLOG Insulin] 10 units SQ TIDAC Lisinopril [Zestril] 2.5 mg PO DAILY Metoclopramide HCl 5 mg PO BID Insulin Glargine [Lantus Insulin] 35 units SQ HS Multivitamin [Multi-Vitamin Daily] 1 tab PO DAILY Gabapentin 300 mg PO TID PRN PRN PRN Reason: Pain Dicyclomine HCl 20 mg [Bentyl 20 mg] 10 mg PO DAILY Instructions: Hypokalemia (DC) Additional Instructions: Help at Home Health Care Forms: Ambulance Transport Record, Discharge Instructions
== END 2018-01-22 11:20 | disposition home or self-care (01) ==
LOC: ED 16:46 → MED SURG 20:46
PROVIDERS: ADMIT General Practice; ATTEND General Practice
DX: R10.9 Unspecified abdominal pain (principal); E87.6 Hypokalemia; R11.10 Vomiting, unspecified; L89.90 Pressure ulcer of unspecified site, unspecified stage; E11.9 Type 2 diabetes mellitus without complications; Z79.4 Long term (current) use of insulin; E03.9 Hypothyroidism, unspecified; M19.90 Unspecified osteoarthritis, unspecified site; Z85.3 Personal history of malignant neoplasm of breast; I10 Essential (primary) hypertension; K44.9 Diaphragmatic hernia without obstruction or gangrene; Z79.899 Other long term (current) drug therapy
CPT/HCPCS: 36000; 36415; 74176; 80048; 80053; 81001; 82150; 82962; 83605; 83690; 84484; 85025; 93268; 96360; 96361; 99285; G0008; A9270-GY; G0378

== ENCOUNTER 2018-04-14 17:12 | Observation (INO) | payer MEDICARE ==
--- NOTE | 2018-04-14 17:58 | ERPHSYRPT ---
- History of Present Illness Time Seen by Provider: 04/14/18 17:40 Source: patient, family Exam Limitations: clinical condition Patient Subjective Stated Complaint: Persistent cough for past two weeks that they feel is getting worse Triage Nursing Assessment: Pt arrived by EMS with c/o of having a cough for almost 2 weeks, feels that the cough is getting worse and deeper, dry non productive cough, lungs clear, no edema, denies shortness of breath, home health stated that she has been lethargic for the past couple of days and hasn' t been eating much and skipping meals, vitals wnl, denies pain, appears sleepy Physician History: PATIENT WITH A HISTORY OF TYPE 2 DIABETES, HYPERTENSION, BREAST CARCINOMA, PANCREATITIS, COMPLAINS OF A NONPRODUCTIVE COUGH FOR 2 WEEKS PROGRESSIVELY WORSE. HAS GENERALIZED WEAKNESS, POOR APPETITE, POOR ORAL INTAKE AND LETHARGY. DENIES DYSPNEA, FEVER OR CHILLS. Timing/Duration: week(s) Cough Quality/Degree: dry cough Possible Cause: occasional episodes Modifying Factors: Improves With: coughing Associated Symptoms: other (GENERALIZED WEAKNESS, POOR APPETITE) International travel in last 2 weeks: No Allergies/Adverse Reactions: Penicillins Allergy (Verified 04/14/18 17:30) tomato [Tomato] Allergy (Verified 04/14/18 17:30) Allergic to tomato plant. Blisters when touches plant. No difficulty eating tomatoes. Home Medications: Aspirin 81 mg PO DAILY 11/10/13 [History] Atenolol 12.5 mg PO BID 11/10/13 [History] Gemfibrozil 600 mg [Lopid 600 mg] 600 mg PO DAILY 11/10/13 [History] Simvastatin 40 mg [Zocor 40 mg] 40 mg PO HS 11/10/13 [History] Insulin Aspart [NovoLOG Insulin] 10 units SQ TIDAC 03/30/17 [History] Lisinopril [Zestril] 2.5 mg PO DAILY 03/30/17 [History] Metoclopramide HCl 5 mg PO BID 03/30/17 [History] Insulin Glargine [Lantus Insulin] 35 units SQ HS 08/11/17 [History] Multivitamin [Multi-Vitamin Daily] 1 tab PO DAILY 08/11/17 [History] Gabapentin 300 mg PO TID PRN PRN 01/20/18 [History] Dicyclomine HCl 20 mg [Bentyl 20 mg] 10 mg PO DAILY 01/21/18 [History] Guaifenesin Dextromethorphan [MUCINEX Dm 600/30MG] 1 tablet PO BID [History] Hx Tetanus, Diphtheria Vaccination/Date Given: Yes Hx Influenza Vaccination/Date Given: Yes Hx Pneumococcal Vaccination/Date Given: No - Review of Systems Constitutional: Weakness, No Fever, No Chills Eyes: No Symptoms Ears, Nose, & Throat: No Symptoms Respiratory: Cough, No Dyspnea Cardiac: No Symptoms, No Chest Pain, No Edema, No Syncope Abdominal/Gastrointestinal: No Symptoms, No Abdominal Pain, No Nausea, No Vomiting, No Diarrhea Genitourinary Symptoms: No Symptoms, No Dysuria Musculoskeletal: No Symptoms, No Back Pain, No Neck Pain Skin: No Rash Neurological: No Symptoms, No Dizziness, No Focal Weakness, No Sensory Changes Psychological: No Symptoms Endocrine: No Symptoms All Other Systems: Reviewed and Negative - Past Medical History Pertinent Past Medical History: Yes Neurological History: No Pertinent History ENT History: Glaucoma Cardiac History: No Pertinent History Respiratory History: No Pertinent History Endocrine Medical History: Diabetes Type II, Hypothyroidism Musculoskeletal History: Osteoarthritis GI Medical History: Other History: No Pertinent History Psycho-Social History: No Pertinent History Female Reproductive Disorders: Breast Cancer Other Medical History: HTN, IDDM, Hypothryoidism, Breast CA. Hiatal Hernia, Gastroparesis. - Past Surgical History Past Surgical History: Yes Neuro Surgical History: No Pertinent History Cardiac: No Pertinent History Respiratory: No Pertinent History Gastrointestinal: No Pertinent History Genitourinary: No Pertinent History Musculoskeletal: Amputation, Other Female Surgical History: Lumpectomy Other Surgical History: oral surgery - wisdom teeth. back surgery - disc removed - Social History Smoking Status: Former smoker How long have you smoked: few years Exposure to second hand smoke: No Drug Use: none Patient Lives Alone: No - Female History Hx Now: No - Nursing Vital Signs Nursing Vital Signs: Initial Vital Signs Temperature 98.0 F 04/14/18 17:13 Pulse Rate 61 04/14/18 17:13 Blood Pressure 113/60 04/14/18 17:13 O2 Sat by Pulse Oximetry 97 04/14/18 17:13 Pain Scale Pain Intensity 0 - Physical Exam General Appearance: no apparent distress, alert Eye Exam: PERRL/EOMI, eyes nml inspection Ears, Nose, Throat Exam: normal ENT inspection, TMs normal, pharynx normal, moist mucous membranes Neck Exam: normal inspection, non-tender, supple, full range of motion Respiratory Exam: normal breath sounds, lungs clear, other (NO WEAKNESS OR RHONCHI), No respiratory distress Cardiovascular Exam: regular rate/rhythm, normal heart sounds Gastrointestinal/Abdomen Exam: soft, No tenderness Back Exam: normal inspection, No CVA tenderness, No vertebral tenderness Extremity Exam: normal inspection, normal range of motion Neurologic Exam: alert, oriented x 3, cooperative, normal mood/affect, sensation nml, No motor deficits Skin Exam: normal color, warm, dry, No rash Lymphatic Exam: No adenopathy SpO2 Interpretation: normal SpO2: 97 Oxygen Delivery: Room Air - Radiology Exams Chest X-ray Interpretation: Interpreted by me, Negative (LEFT GROSHONG CATHETER) Ordered Tests: Active Orders 24 hr Category Date Time Status Bedrest ROUTINE Activity 04/15/18 00:19 Active Accucheck ACHS Care 04/15/18 00:17 Active Cath [Catheter-[place] Kathleen] STAT Care 04/14/18 20:47 Active Code Status Order ROUTINE Care 04/15/18 00:17 Active IV Care Q6H Care 04/15/18 00:17 Active IV Insertion STAT Care 04/14/18 18:[address] in Observation ROUTINE Care 04/15/18 00:17 Active Vital Signs Q4H Care 04/15/18 00:17 Active 1800 Calorie ADA Diet 04/15/18 Breakfast Active CHEST 1 VIEW (PORTABLE) Stat Exams 04/14/18 17:59 Taken BLOOD CULTURE Stat Lab 04/14/18 17:58 Ordered CBC W DIFF Stat Lab 04/14/18 18:45 Completed CMP Stat Lab 04/14/18 17:58 Completed MAGNESIUM Stat Lab 04/14/18 17:59 Completed UA W/RFX UR CULTURE Stat Lab 04/14/18 17:58 Completed Oxygen NASAL CANNULA 2 lpm RT 04/15/18 00:17 Active Transfer Order Routine Transfer 04/15/18 Ordered Medication Summary Generic Name Dose Route Start Last Admin Trade Name Freq PRN Reason Stop Dose Admin Acetaminophen 650 mg 04/15/18 00:17 Tylenol 325 Mg PO 05/15/18 00:16 Q4H PRN PRN PAIN AND/OR FEVER Aspirin 81 mg 04/15/18 10:00 Ecotrin 81 Mg PO 05/15/18 09:59 DAILY [facility] Atenolol 12.5 mg 04/15/18 10:00 Tenormin 50 Mg PO 05/15/18 09:59 DAILY [facility] Gabapentin 300 mg 04/15/18 10:00 Neurontin 300 Mg PO 05/15/18 09:59 TID CINTHIA Sodium Chloride 1,000 mls @ 100 mls/hr 04/14/18 18:00 04/14/18 18:14 Sodium Chloride 0.9% 1000 Ml IV 05/14/18 17:59 100 mls/hr .Q10H CINTHIA Administration Levofloxacin/Dextrose 500 mg in 100 mls @ 100 mls/hr 04/15/18 10:00 Levofloxacin 500mg/100ml D5w IV 05/15/18 09:59 Q24H10 CINTHIA Sodium Chloride 1,000 mls @ 60 mls/hr 04/15/18 00:30 Sodium Chloride 0.9% 1000 Ml IV 05/15/18 00:29 .[id number] [facility] Insulin Aspart 10 unit 04/15/18 07:30 Novolog Insulin SQ 05/15/18 07:29 TIDAC [facility] Insulin Glargine 35 unit 04/15/18 22:00 Lantus Insulin SQ 05/15/18 21:59 HS [facility] Levothyroxine Sodium 125 mcg 04/15/18 10:00 Synthroid 125 Mcg PO 05/15/18 09:59 QAM [facility] Lisinopril 2.5 mg 04/15/18 10:00 Zestril 5 Mg PO 05/15/18 09:59 DAILY [facility] Discontinued Medications Generic Name Dose Route Start Last Admin Trade Name Freq PRN Reason Stop Dose Admin Levofloxacin/Dextrose 500 mg in 100 mls @ 100 mls/hr 04/14/18 18:00 04/14/18 23:07 Levofloxacin 500mg/100ml D5w IV 04/14/18 18:59 Infused STAT STA Infusion Levofloxacin/Dextrose Confirm 04/14/18 18:08 Levofloxacin 500mg/100ml D5w Administered 04/14/18 18:09 Dose 500 mg in 100 mls @ ud IV .STK-MED ONE Lab/Rad Data: Laboratory Result Diagrams 04/14/18 18:45 04/14/18 17:58 Laboratory Results 04/14/18 04/14/18 04/14/18 Range/Units Unknown 18:45 17:59 WBC 9.7 (4.0-10.5) K/mm3 RBC 4.18 (4.1-5.4) M/mm3 Hgb 11.9 L (12.0-16.0) gm/dl Hct 38.9 (35-47) % MCV 93.1 (78-100) fl MCH 28.4 (26-32) pg MCHC 30.6 L (32-36) g/dl RDW 16.7 H (11.5-14.0) % Plt Count 228 (150-450) K/mm3 MPV 11.3 H (6-9.5) fl Gran % 61.6 (36.0-66.0) % Eos # (Auto) 0.53 H (0-0.5) Absolute Lymphs (auto) 2.17 (1.0-4.6) Absolute Monos (auto) 0.98 (0.0-1.3) Lymphocytes % 22.4 L (24.0-44.0) % Monocytes % 10.1 (0.0-12.0) % Eosinophils % 5.5 H (0.00-5.0) % Basophils % 0.4 (0.0-0.4) % Absolute Granulocytes 5.97 (1.4-6.9) Basophils # 0.04 (0-0.4) Sodium (137-145) mmol/L Potassium (3.5-5.1) mmol/L Chloride (98-107) mmol/L Carbon Dioxide (22-30) mmol/L Anion Gap (5-15) MEQ/L BUN (7-17) mg/dL Creatinine (0.52-1.04) mg/dL Estimated GFR ML/MIN Glucose (74-106) mg/dL Calcium (8.4-10.2) mg/dL Magnesium 2.0 (1.6-2.3) mg/dL Total Bilirubin (0.2-1.3) mg/dL AST (14-36) U/L ALT (0-35) U/L Alkaline Phosphatase (38-126) U/L Serum Total Protein (6.3-8.2) g/dL Albumin (3.5-5.0) g/dL Urine Color (YELLOW) Urine Appearance (CLEAR) Urine pH (5-6) Ur Specific [place] (1.005-1.025) Urine Protein (Negative) Urine Ketones (NEGATIVE) Urine Blood (0-5) Ross/ul Urine Nitrite (NEGATIVE) Urine Bilirubin (NEGATIVE) Urine Urobilinogen (0-1) mg/dL Ur Leukocyte Esterase (NEGATIVE) Urine WBC (Auto) (0-5) /HPF Urine RBC (Auto) (0-2) /HPF U Epithel Cells (Auto) (FEW) /HPF Urine Bacteria (Auto) (NEGATIVE) /HPF Urine Mucus (Auto) (NEGATIVE) /HPF Urine Culture Reflexed (NO) Urine Glucose (NEGATIVE) mg/dL Influenza Type A Ag NEGATIVE (NEGATIVE) Influenza Type B Ag NEGATIVE (NEGATIVE) RSV (PCR) NEGATIVE (Negative) 04/14/18 04/14/18 Range/Units 17:58 17:58 WBC (4.0-10.5) K/mm3 RBC (4.1-5.4) M/mm3 Hgb (12.0-16.0) gm/dl Hct (35-47) % MCV (78-100) fl MCH (26-32) pg MCHC (32-36) g/dl RDW (11.5-14.0) % Plt Count (150-450) K/mm3 MPV (6-9.5) fl Gran % (36.0-66.0) % Eos # (Auto) (0-0.5) Absolute Lymphs (auto) (1.0-4.6) Absolute Monos (auto) (0.0-1.3) Lymphocytes % (24.0-44.0) % Monocytes % (0.0-12.0) % Eosinophils % (0.00-5.0) % Basophils % (0.0-0.4) % Absolute Granulocytes (1.4-6.9) Basophils # (0-0.4) Sodium 140 (137-145) mmol/L Potassium 3.9 (3.5-5.1) mmol/L Chloride 111 H (98-107) mmol/L Carbon Dioxide 21 L (22-30) mmol/L Anion Gap 12.4 (5-15) MEQ/L BUN 28 H (7-17) mg/dL Creatinine 0.74 (0.52-1.04) mg/dL Estimated GFR > 60.0 ML/MIN Glucose 162 H (74-106) mg/dL Calcium 8.9 (8.4-10.2) mg/dL Magnesium (1.6-2.3) mg/dL Total Bilirubin 0.50 (0.2-1.3) mg/dL AST 31 (14-36) U/L ALT 12 (0-35) U/L Alkaline Phosphatase 88 (38-126) U/L Serum Total Protein 6.2 L (6.3-8.2) g/dL Albumin 3.1 L (3.5-5.0) g/dL Urine Color YELLOW (YELLOW) Urine Appearance CLEAR (CLEAR) Urine pH 5.0 (5-6) Ur Specific [place] 1.023 (1.005-1.025) Urine Protein NEGATIVE (Negative) Urine Ketones NEGATIVE (NEGATIVE) Urine Blood NEGATIVE (0-5) Ross/ul Urine Nitrite NEGATIVE (NEGATIVE) Urine Bilirubin NEGATIVE (NEGATIVE) Urine Urobilinogen NEGATIVE (0-1) mg/dL Ur Leukocyte Esterase NEGATIVE (NEGATIVE) Urine WBC (Auto) NONE (0-5) /HPF Urine RBC (Auto) NONE (0-2) /HPF U Epithel Cells (Auto) NONE (FEW) /HPF Urine Bacteria (Auto) NONE SEEN (NEGATIVE) /HPF Urine Mucus (Auto) SLIGHT (NEGATIVE) /HPF Urine Culture Reflexed NO (NO) Urine Glucose NEGATIVE (NEGATIVE) mg/dL Influenza Type A Ag (NEGATIVE) Influenza Type B Ag (NEGATIVE) RSV (PCR) (Negative) - Progress Progress Note: 04/14/18 18:18 IV NORMAL SALINE 100ML/HR Discussed with : Jeanine (DISCUSSED WITH DR LOPEZ AT 0005 FOR OBSERVATION) - Departure Time of Disposition: 00:35 Departure Disposition: Observation Clinical Impression: ACUTE BRONCHIOLITIS, GENERALIZED WEAKNESS, DEHYDRATION Condition: Stable Critical Care Time: No Referrals: FELICIA LOPEZ MD [Primary Care Provider] -
[2018-04-14] MEDS ORDERED: Levofloxacin 500MG/100ML D5W 500 MG/100 ML BAG IV STA (18:00)
[2018-04-14] MEDS ORDERED: Sodium Chloride 0.9% 1000 ML 1,000 ML IV SCH (18:00)
[2018-04-14] MEDS ORDERED: Levofloxacin 500MG/100ML D5W 500 MG/100 ML BAG IV ONE (18:08)
[2018-04-14 19:51] LABS: INFLUENZA A NEGATIVE (NEGATIVE); INFLUENZA B NEGATIVE (NEGATIVE); RESPIRATORY SYNCTIAL VIRUS NEGATIVE (Negative)
[2018-04-14 20:00] LABS: ALBUMIN 3.1 g/dL (3.5-5.0); ALKALINE PHOSPHATASE 88 U/L (38-126); ANION GAP 12.4 MEQ/L (5-15); BLOOD UREA NITROGEN 28 mg/dL (7-17); CHLORIDE 111 mmol/L (98-107); Calcium 8.9 mg/dL (8.4-10.2); Carbon Dioxide 21 mmol/L (22-30); Creatinine 1 0.74 mg/dL (0.52-1.04); Glucose 162 mg/dL (74-106); Potassium 3.9 mmol/L (3.5-5.1); SGOT/AST 31 U/L (14-36); SGPT/ALT 12 U/L (0-35); SODIUM 140 mmol/L (137-145); Total Protein 6.2 g/dL (6.3-8.2)
[2018-04-14 20:31] LABS: BASOPHIL % 0.4 % (0.0-0.4); Basophil (Absolute #) 0.04 (0-0.4); Eosinophil % 5.5 % (0.00-5.0); Eosinophil (Absolute #) 0.53 (0-0.5); Granulocyte Absolute (ANC) 5.97 (1.4-6.9); Granulocytes % 61.6 % (36.0-66.0); Hematocrit 38.9 % (35-47); Hemoglobin 11.9 gm/dl (12.0-16.0); Lymphocyte (Absolute #) 2.17 (1.0-4.6); Lymphocytes % 22.4 % (24.0-44.0); Mean Cell Volume 93.1 fl (78-100); Mean Corpuscular Hgb Concent. 30.6 g/dl (32-36); Mean Platelet Volume 11.3 fl (6-9.5); Monocyte (Absolute #) 0.98 (0.0-1.3); Monocytes % 10.1 % (0.0-12.0); Platelet Count 228 K/mm3 (150-450); Red Blood Count 4.18 M/mm3 (4.1-5.4); Red Cell Distribution Width 16.7 % (11.5-14.0); White Blood Count 9.7 K/mm3 (4.0-10.5)
[2018-04-14 20:33] LABS: Mean Corpuscular Hemoglobin 28.4 pg (26-32)
[2018-04-14 21:55] LABS: Appearance CLEAR (CLEAR); Bilirubin NEGATIVE (NEGATIVE); Blood NEGATIVE Ery/ul (0-5); Glucose NEGATIVE (NEGATIVE); Ketones NEGATIVE (NEGATIVE); Leukocyte Esterase NEGATIVE (NEGATIVE); Nitrite NEGATIVE (NEGATIVE); Protein,Urine Dip NEGATIVE (Negative); Specific Gravity 1.023 (1.005-1.025); Urobilinogen NEGATIVE mg/dL (0-1)
[2018-04-15] MEDS ORDERED: TYLENOL 325 MG PO PRN (00:17)
[2018-04-15 04:08] LABS: Slide Review 1 YES
[2018-04-15] MEDS: Sodium Chloride 0.9% 1000 ML 1,000 ML IV SCH (08:00)
[2018-04-15] MEDS: NovoLOG Insulin SQ SCH ×3 (08:02→16:43)
--- NOTE | 2018-04-15 08:39 | XRAY ---
Indication: Cough, congestion, short of breath one week. Comparison: August 11, 2017. Portable chest is clear. Heart is not enlarged with stable mitral valve calcifications and left Port-A-Cath. Bony thorax intact again with mild osteopenia and degenerative changes. Impression: Nonacute chest with chronic features.
[2018-04-15] MEDS: Zestril 5 MG PO SCH (09:51)
[2018-04-15] MEDS: SYNTHROID 125 MCG PO SCH (09:52)
[2018-04-15] MEDS: ECOTRIN 81 MG PO SCH (09:53)
[2018-04-15] MEDS ORDERED: TENORMIN 50 MG PO SCH (10:00)
[2018-04-15] MEDS ORDERED: NEURONTIN 300 MG PO SCH (10:00)
--- NOTE | 2018-04-15 10:12 | PCM.HP ---
History of Present Illness - Chief Complaint Chief Complaint: Acute bronchiolitis, generalized weakness History of Present Illness: is a 78 year old female.c/o of having a cough for almost 2 weeks, feels that the cough is getting worse and deeper, dry non productive cough, lungs clear, no edema, denies shortness of breath, home health stated that she has been lethargic for the past couple of days and hasn't been eating much and skipping meals, - Review of Systems Constitutional: Fever, Fatigue, Lethargy, Malaise, Weakness, No Chills Eyes: No Symptoms Ears, Nose, & Throat: No Symptoms Respiratory: Cough, Short Of Breath Cardiac: No Chest Pain, No Edema, No Syncope Abdominal/Gastrointestinal: No Abdominal Pain, No Nausea, No Vomiting, No Diarrhea Genitourinary Symptoms: No Dysuria Musculoskeletal: No Back Pain, No Neck Pain Skin: No Rash Neurological: No Dizziness, No Focal Weakness, No Sensory Changes Psychological: No Symptoms Endocrine: No Symptoms Hematologic/Lymphatic: No Symptoms Immunological/Allergic: No Symptoms Medications & Allergies Home Medications: Home Medication List Aspirin 81 mg PO DAILY 11/10/13 [History Confirmed 04/14/18] Atenolol 12.5 mg PO BID 11/10/13 [History Confirmed 04/14/18] Gemfibrozil 600 mg [Lopid 600 mg] 600 mg PO DAILY 11/10/13 [History Confirmed 04/14/18] Simvastatin 40 mg [Zocor 40 mg] 40 mg PO HS 11/10/13 [History Confirmed 04/14/18 ] Levothyroxine Sodium 125 mcg PO DAILY #30 tablet 11/14/13 [Rx Confirmed 04/14/18 ] PANTOPRAZOLE 40 mg Tablet [Protonix 40MG Tablet] 40 mg PO DAILY #30 tab [Rx Confirmed 04/14/18] Insulin Aspart [NovoLOG Insulin] 10 units SQ TIDAC 03/30/17 [History Confirmed 04/14/18] Lisinopril [Zestril] 2.5 mg PO DAILY 03/30/17 [History Confirmed 04/14/18] Insulin Glargine [Lantus Insulin] 40 units SQ HS 08/11/17 [History Confirmed 09/26] Multivitamin [Multi-Vitamin Daily] 1 tab PO DAILY 08/11/17 [History Confirmed ] Gabapentin 300 mg PO TID PRN PRN 01/20/18 [History Confirmed 04/14/18] Dicyclomine HCl 20 mg [Bentyl 20 mg] 10 mg PO DAILY 01/21/18 [History Confirmed 04/14/18] Allergies/Adverse Reactions: Allergies Allergy/AdvReac Type Severity Reaction Status Date / Time Penicillins Allergy Verified 04/14/18 17:30 tomato [Tomato] Allergy Verified 04/14/18 17:30 - Past Medical History Past Medical History: Yes Neurological History: No Pertinent History ENT History: Glaucoma Cardiac History: No Pertinent History Respiratory History: No Pertinent History Endocrine Medical History: Diabetes Type II, Hypothyroidism Musculoskelatal History: Osteoarthritis GI Medical History: Other History: No Pertinent History Pyscho-Social History: No Pertinent History Reproductive Disorders: Breast Cancer Comment: HTN, IDDM, Hypothryoidism, Breast CA. Hiatal Hernia, Gastroparesis. - Female History Are you now?: No - Past Surgical History Past Surgical History: Yes Neuro Surgical History: No Pertinent History Cardiac History: No Pertinent History Respiratory Surgery: No Pertinent History GI Surgical History: No Pertinent History Genitourinary Surgical Hx: No Pertinent History Musculskeletal Surgical Hx: Amputation, Other Female Surgical History: Lumpectomy Other Surgical History: oral surgery - wisdom teeth. back surgery - disc removed - Social History Smoking Status: Former smoker How long have you smoked: few years Exposure to second hand smoke: No Alcohol: None Drug Use: none - Physical Exam Vital Signs: Vital Signs - 24 hr Temp Pulse Resp BP BP Pulse Ox 04/15/18 09:52 66 120/64 04/15/18 07:14 98 F 66 20 120/64 99 04/15/18 02:33 98.0 F 61 18 119/57 98 04/15/18 00:28 97 04/15/18 00:19 57 L 16 134/65 94 L 04/14/18 22:39 58 L 18 138/68 97 04/14/18 20:40 129/67 04/14/18 19:40 65 128/70 99 04/14/18 18:50 62 22 125/58 97 04/14/18 18:24 98.0 F 58 L 123/59 97 04/14/18 17:16 97 04/14/18 17:13 98.0 F 61 113/60 97 General Appearance: mild distress, alert, lethargy Neurologic Exam: alert, oriented x 3, cooperative, normal mood/affect, nml cerebellar function, nml station & gait, sensation nml, No motor deficits Eye Exam: PERRL/EOMI, eyes nml inspection Ears, Nose, Throat Exam: normal ENT inspection, TMs normal, pharynx normal, moist mucous membranes Neck Exam: normal inspection, non-tender, supple, full range of motion Respiratory Exam: diminished breath sounds, wheezing, No respiratory distress Cardiovascular Exam: regular rate/rhythm, normal heart sounds, normal peripheral pulses Gastrointestinal/Abdomen Exam: soft, normal bowel sounds, No tenderness, No mass Back Exam: normal inspection, normal range of motion, No CVA tenderness, No vertebral tenderness Extremity Exam: normal inspection, normal range of motion, pelvis stable Skin Exam: normal color, warm, dry, No rash Lymphatic Exam: No adenopathy Results - Labs Lab/Micro Results: Accuchecks Date 04/15/18 Time 08:02 Accucheck Value: 68 Lab Results-Last 24 Hours 04/14/18 04/14/18 04/14/18 Range/Units 17:58 17:58 17:59 WBC (4.0-10.5) K/mm3 RBC (4.1-5.4) M/mm3 Hgb (12.0-16.0) gm/dl Hct (35-47) % MCV (78-100) fl MCH (26-32) pg MCHC (32-36) g/dl RDW (11.5-14.0) % Plt Count (150-450) K/mm3 MPV (6-9.5) fl Gran % (36.0-66.0) % Eos # (Auto) (0-0.5) Absolute Lymphs (auto) (1.0-4.6) Absolute Monos (auto) (0.0-1.3) Lymphocytes % (24.0-44.0) % Monocytes % (0.0-12.0) % Eosinophils % (0.00-5.0) % Basophils % (0.0-0.4) % Absolute Granulocytes (1.4-6.9) Basophils # (0-0.4) Sodium 140 (137-145) mmol/L Potassium 3.9 (3.5-5.1) mmol/L Chloride 111 H (98-107) mmol/L Carbon Dioxide 21 L (22-30) mmol/L Anion Gap 12.4 (5-15) MEQ/L BUN 28 H (7-17) mg/dL Creatinine 0.74 (0.52-1.04) mg/dL Estimated GFR > 60.0 ML/MIN Glucose 162 H (74-106) mg/dL Hemoglobin A1c (4.5-6.0) % Calcium 8.9 (8.4-10.2) mg/dL Magnesium 2.0 (1.6-2.3) mg/dL Total Bilirubin 0.50 (0.2-1.3) mg/dL AST 31 (14-36) U/L ALT 12 (0-35) U/L Alkaline Phosphatase 88 (38-126) U/L Serum Total Protein 6.2 L (6.3-8.2) g/dL Albumin 3.1 L (3.5-5.0) g/dL Urine Color YELLOW (YELLOW) Urine Appearance CLEAR (CLEAR) Urine pH 5.0 (5-6) Ur Specific [place] 1.023 (1.005-1.025) Urine Protein NEGATIVE (Negative) Urine Ketones NEGATIVE (NEGATIVE) Urine Blood NEGATIVE (0-5) Ross/ul Urine Nitrite NEGATIVE (NEGATIVE) Urine Bilirubin NEGATIVE (NEGATIVE) Urine Urobilinogen NEGATIVE (0-1) mg/dL Ur Leukocyte Esterase NEGATIVE (NEGATIVE) Urine WBC (Auto) NONE (0-5) /HPF Urine RBC (Auto) NONE (0-2) /HPF U Epithel Cells (Auto) NONE (FEW) /HPF Urine Bacteria (Auto) NONE SEEN (NEGATIVE) /HPF Urine Mucus (Auto) SLIGHT (NEGATIVE) /HPF Urine Culture Reflexed NO (NO) Urine Glucose NEGATIVE (NEGATIVE) mg/dL Influenza Type A Ag (NEGATIVE) Influenza Type B Ag (NEGATIVE) RSV (PCR) (Negative) Slides for Path Review 04/14/18 04/14/18 04/15/18 Range/Units 18:45 Unknown 05:05 WBC 9.7 (4.0-10.5) K/mm3 RBC 4.18 (4.1-5.4) M/mm3 Hgb 11.9 L (12.0-16.0) gm/dl Hct 38.9 (35-47) % MCV 93.1 (78-100) fl MCH 28.4 (26-32) pg MCHC 30.6 L (32-36) g/dl RDW 16.7 H (11.5-14.0) % Plt Count 228 (150-450) K/mm3 MPV 11.3 H (6-9.5) fl Gran % 61.6 (36.0-66.0) % Eos # (Auto) 0.53 H (0-0.5) Absolute Lymphs (auto) 2.17 (1.0-4.6) Absolute Monos (auto) 0.98 (0.0-1.3) Lymphocytes % 22.4 L (24.0-44.0) % Monocytes % 10.1 (0.0-12.0) % Eosinophils % 5.5 H (0.00-5.0) % Basophils % 0.4 (0.0-0.4) % Absolute Granulocytes 5.97 (1.4-6.9) Basophils # 0.04 (0-0.4) Sodium (137-145) mmol/L Potassium (3.5-5.1) mmol/L Chloride (98-107) mmol/L Carbon Dioxide (22-30) mmol/L Anion Gap (5-15) MEQ/L BUN (7-17) mg/dL Creatinine (0.52-1.04) mg/dL Estimated GFR ML/MIN Glucose (74-106) mg/dL Hemoglobin A1c 5.95 (4.5-6.0) % Calcium (8.4-10.2) mg/dL Magnesium (1.6-2.3) mg/dL Total Bilirubin (0.2-1.3) mg/dL AST (14-36) U/L ALT (0-35) U/L Alkaline Phosphatase (38-126) U/L Serum Total Protein (6.3-8.2) g/dL Albumin (3.5-5.0) g/dL Urine Color (YELLOW) Urine Appearance (CLEAR) Urine pH (5-6) Ur Specific [place] (1.005-1.025) Urine Protein (Negative) Urine Ketones (NEGATIVE) Urine Blood (0-5) Ross/ul Urine Nitrite (NEGATIVE) Urine Bilirubin (NEGATIVE) Urine Urobilinogen (0-1) mg/dL Ur Leukocyte Esterase (NEGATIVE) Urine WBC (Auto) (0-5) /HPF Urine RBC (Auto) (0-2) /HPF U Epithel Cells (Auto) (FEW) /HPF Urine Bacteria (Auto) (NEGATIVE) /HPF Urine Mucus (Auto) (NEGATIVE) /HPF Urine Culture Reflexed (NO) Urine Glucose (NEGATIVE) mg/dL Influenza Type A Ag NEGATIVE (NEGATIVE) Influenza Type B Ag NEGATIVE (NEGATIVE) RSV (PCR) NEGATIVE (Negative) Slides for Path Review YES Accuchecks Date 04/15/18 Time 08:02 Accucheck Value: 68 - Radiology Impressions Radiology Exams & Impressions: Radiology Procedures Category Date Time Status CHEST 1 VIEW (PORTABLE) Stat Exams 04/14/18 17:59 Completed - Other Procedures and Tests Respiratory Therapy 04/15/18 00:17 Oxygen NASAL CANNULA 2 lpm
[2018-04-15] MEDS ORDERED: NEURONTIN 300 MG PO PRN (11:45)
[2018-04-15] MEDS: BENTYL 20 MG PO SCH (13:22)
[2018-04-15] MEDS: Protonix 40MG Tablet PO SCH ×2 (13:22→13:23)
[2018-04-15] MEDS: LOPID 600 MG PO SCH (13:23)
[2018-04-15] MEDS: THERAGRAN MULTIVITAMIN PO SCH (13:23)
[2018-04-15] MEDS ORDERED: Levofloxacin 500MG/100ML D5W 500 MG/100 ML BAG IV SCH (18:00)
[2018-04-15] MEDS: TENORMIN 50 MG PO SCH (21:34)
[2018-04-15] MEDS ORDERED: ZOCOR 20MG PO SCH (22:00)
[2018-04-15] MEDS ORDERED: NON-FORMULARY ITEM (Simvastatin 40 Mg [Zocor 40 Mg] 40 MG) PO SCH (22:00)
[2018-04-15] MEDS ORDERED: Lantus Insulin SQ SCH (22:00)
[2018-04-16] MEDS: Sodium Chloride 0.9% 1000 ML 1,000 ML IV SCH (03:43)
[2018-04-16 07:32] VITALS: PULSE 73; O2SAT 99
[2018-04-16] MEDS: SYNTHROID 125 MCG PO SCH (09:36)
[2018-04-16] MEDS: BENTYL 20 MG PO SCH (09:37)
[2018-04-16] MEDS: Protonix 40MG Tablet PO SCH (09:37)
[2018-04-16] MEDS: THERAGRAN MULTIVITAMIN PO SCH (09:37)
[2018-04-16] MEDS: ECOTRIN 81 MG PO SCH (09:37)
[2018-04-16] MEDS: Zestril 5 MG PO SCH (09:37)
[2018-04-16] MEDS: TENORMIN 50 MG PO SCH (09:38)
[2018-04-16] MEDS: NovoLOG Insulin SQ SCH (09:40)
[2018-04-16] MEDS: LOPID 600 MG PO SCH (09:40)
[2018-04-16 09:45] VITALS: BP 116/54
[2018-04-16] MEDS ORDERED: NON-FORMULARY ITEM (Multivitamin [Multi-Vitamin Daily] 1 TAB) PO SCH (10:00)
== END 2018-04-16 12:00 | disposition home health service (06) ==
LOC: ED 17:12 → MED SURG 04-15 01:06
PROVIDERS: ADMIT General Practice; ATTEND General Practice
DX: J21.9 Acute bronchiolitis, unspecified (principal); R53.1 Weakness; E86.0 Dehydration; Z79.4 Long term (current) use of insulin; E03.9 Hypothyroidism, unspecified; M19.90 Unspecified osteoarthritis, unspecified site; Z85.3 Personal history of malignant neoplasm of breast; I10 Essential (primary) hypertension; Z79.899 Other long term (current) drug therapy
CPT/HCPCS: 36415; 51702; 71045; 80053; 81001; 82962; 83036; 83735; 85025; 87040; 87631; 96360; 96365; 99285; G0378; J1642; J1956; A9270-GY

== ENCOUNTER 2018-08-31 22:59 | Emergency (ER) | payer MEDICARE ==
--- NOTE | 2018-08-31 23:39 | ERPHSYRPT ---
- History of Present Illness Time Seen by Provider: 08/31/18 23:30 Historian: patient, EMS Exam Limitations: no limitations Patient Subjective Stated Complaint: Pt states she vomited 2 times this am but does not currently feel nauseated, ems reports family told them "she was throwing up all day". pt denies all complaints at this time. pt received 250ml bolus per ems but nothing for nausea Triage Nursing Assessment: pink/warm/dry, resp easy, a&ox4, pt is bedridden, lt bka noted. Physician History: Pt denies current complaints, according to her family, she has been vomiting all day. She denies current pain, nausea, no fever, chills, no cough, chest pain , SOB, dizziness, or other complaints. She arrived with ambulance, she was started on IV saline, her blood sugar was 130. Timing/Duration: day(s) (2), intermittent Activities at Onset: none Quality: other (denies) Pain Radiation: no radiation Severity of Pain-Max: none Severity of Pain-Current: none Modifying Factors: Improves With: nothing Associated Symptoms: denies symptoms Previous symptoms: same symptoms as today Allergies/Adverse Reactions: Penicillins Allergy (Verified 08/31/18 23:07) Home Medications: Aspirin 81 mg PO DAILY 11/10/13 [History] Atenolol 12.5 mg PO BID 11/10/13 [History] Gemfibrozil 600 mg [Lopid 600 mg] 600 mg PO DAILY 11/10/13 [History] Simvastatin 40 mg [Zocor 40 mg] 40 mg PO HS 11/10/13 [History] Insulin Aspart [NovoLOG Insulin] 10 units SQ TIDAC 03/30/17 [History] Lisinopril [Zestril] 2.5 mg PO DAILY 03/30/17 [History] Insulin Glargine [Lantus Insulin] 40 units SQ HS 08/11/17 [History] Multivitamin [Multi-Vitamin Daily] 1 tab PO DAILY 08/11/17 [History] Gabapentin 300 mg PO TID PRN PRN 01/20/18 [History] Dicyclomine HCl 20 mg [Bentyl 20 mg] 10 mg PO DAILY 01/21/18 [History] Hx Tetanus, Diphtheria Vaccination/Date Given: No Hx Influenza Vaccination/Date Given: No Hx Pneumococcal Vaccination/Date Given: No Immunizations Up to Date: No - Review of Systems Constitutional: No Symptoms Ears, Nose, & Throat: No Symptoms Respiratory: No Symptoms Cardiac: No Symptoms Abdominal/Gastrointestinal: Vomiting Genitourinary Symptoms: No Symptoms Musculoskeletal: No Symptoms Skin: No Symptoms Neurological: No Symptoms All Other Systems: Reviewed and Negative - Past Medical History Pertinent Past Medical History: Yes Neurological History: No Pertinent History ENT History: Glaucoma Cardiac History: No Pertinent History Respiratory History: No Pertinent History Endocrine Medical History: Diabetes Type II, Hypothyroidism Musculoskeletal History: Osteoarthritis GI Medical History: Other History: No Pertinent History Psycho-Social History: No Pertinent History Female Reproductive Disorders: Breast Cancer Other Medical History: HTN, IDDM, Hypothryoidism, Breast CA. Hiatal Hernia, Gastroparesis. - Past Surgical History Past Surgical History: Yes Neuro Surgical History: No Pertinent History Cardiac: No Pertinent History Respiratory: No Pertinent History Gastrointestinal: No Pertinent History Genitourinary: No Pertinent History Musculoskeletal: Amputation, Other Female Surgical History: Lumpectomy Other Surgical History: oral surgery - wisdom teeth. back surgery - disc removed - Social History Smoking Status: Former smoker How long have you smoked: few years Exposure to second hand smoke: Yes Drug Use: none Patient Lives Alone: No - Female History Hx Now: No - Nursing Vital Signs Nursing Vital Signs: Initial Vital Signs Temperature 98.2 F 08/31/18 23:07 Pulse Rate 77 08/31/18 23:07 Respiratory Rate 14 08/31/18 23:07 Blood Pressure 93/52 08/31/18 23:07 O2 Sat by Pulse Oximetry 99 08/31/18 23:07 Pain Scale Pain Intensity 0 - Physical Exam General Appearance: no apparent distress Eye Exam: eyes nml inspection Ears, Nose, Throat Exam: pharynx normal, dry mucous membranes Neck Exam: normal inspection, non-tender, supple, No carotid bruit, No JVD Respiratory Exam: normal breath sounds, lungs clear, airway intact, No chest tenderness Cardiovascular Exam: regular rate/rhythm, normal heart sounds, normal peripheral pulses, capillary refill <2 sec, No murmur Gastrointestinal/Abdomen Exam: soft, normal bowel sounds, tenderness (mild LUQ) , No distention, No mass, No guarding, No ecchymosis, No pulsatile mass, No rebound, No hernia, No organomegaly Extremity Exam: normal inspection, other (left: BKA), No calf tenderness, No pedal edema Neurologic Exam: alert, oriented x 3, cooperative, normal mood/affect Skin Exam: normal color, warm, dry, No rash, No petechiae, No cyanosis Lymphatic Exam: No adenopathy SpO2 Interpretation: normal SpO2: 99 O2 Delivery: Room Air - Course Nursing assessment & vital signs reviewed: Yes - Radiology Exams Chest X-ray Interpretation: Interpreted by me, Negative - CT Exams Abdomen/Pelvis CT Interpretation: Negative, Tele-radiologist Report, Other (Constipation, Gallstones) Ordered Tests: Active Orders 24 hr Category Date Time Status EKG-ER Only STAT Care 08/31/18 23:32 Active IV Insertion STAT Care 08/31/18 23:32 Active ABDOMEN AND PELVIS W/0 CONTRAS [CT] Stat Exams 09/01/18 00:21 Taken CHEST 1 VIEW (PORTABLE) Stat Exams 09/01/18 00:21 Taken CULTURE,URINE Stat Lab 09/01/18 02:15 Received Lactic Acid Stat Lab 08/31/18 23:32 Completed TROPONIN Q3H Lab 09/01/18 02:45 Ordered TROPONIN Q3H Lab 09/01/18 05:45 Ordered TROPONIN Q3H Lab 09/01/18 08:45 Ordered TROPONIN Q3H Lab 09/01/18 11:45 Ordered UA W/RFX UR CULTURE Stat Lab 09/01/18 02:15 Completed Medication Summary Discontinued Medications Generic Name Dose Route Start Last Admin Trade Name Freq PRN Reason Stop Dose Admin Famotidine 20 mg 08/31/18 23:32 08/31/18 23:49 Pepcid 20 Mg Vial IV 08/31/18 23:33 20 mg STAT ONE Administration Famotidine Confirm 08/31/18 23:49 Pepcid 20 Mg Vial Administered 08/31/18 23:50 Dose 20 mg IV .STK-MED ONE Sodium Chloride 1,000 mls @ 999 mls/hr 08/31/18 23:32 08/31/18 23:49 Sodium Chloride 0.9% 1000 Ml IV 09/01/18 00:32 999 mls/hr .Q1H1M STA Administration Sodium Chloride Confirm 08/31/18 23:49 Sodium Chloride 0.9% 1000 Ml Administered 08/31/18 23:50 Dose 1,000 mls @ ud .ROUTE .STK-MED ONE Lab/Rad Data: Laboratory Result Diagrams 08/31/18 00:50 08/31/18 00:50 Laboratory Results 09/01/18 09/01/18 08/31/18 Range/Units 02:15 00:53 00:50 WBC (4.0-10.5) K/mm3 RBC (4.1-5.4) M/mm3 Hgb (12.0-16.0) gm/dl Hct (35-47) % MCV (78-100) fl MCH (26-32) pg MCHC (32-36) g/dl RDW (11.5-14.0) % Plt Count (150-450) K/mm3 MPV (6-9.5) fl Gran % (36.0-66.0) % Eos # (Auto) (0-0.5) Absolute Lymphs (auto) (1.0-4.6) Absolute Monos (auto) (0.0-1.3) Lymphocytes % (24.0-44.0) % Monocytes % (0.0-12.0) % Eosinophils % (0.00-5.0) % Basophils % (0.0-0.4) % Absolute Granulocytes (1.4-6.9) Basophils # (0-0.4) Sodium 141 (137-145) mmol/L Potassium 3.7 (3.5-5.1) mmol/L Chloride 113 H (98-107) mmol/L Carbon Dioxide 20 L (22-30) mmol/L Anion Gap 12.0 (5-15) MEQ/L BUN 30 H (7-17) mg/dL Creatinine 0.64 (0.52-1.04) mg/dL Estimated GFR > 60.0 ML/MIN Glucose 129 H (74-106) mg/dL Lactic Acid 1.5 (0.4-2.0) Calcium 8.3 L (8.4-10.2) mg/dL Total Bilirubin 0.50 (0.2-1.3) mg/dL AST 36 (14-36) U/L ALT 17 (0-35) U/L Alkaline Phosphatase 52 (38-126) U/L Serum Total Protein 6.1 L (6.3-8.2) g/dL Albumin 3.0 L (3.5-5.0) g/dL Lipase 13 L (23-300) U/L Urine Color YELLOW (YELLOW) Urine Appearance CLEAR (CLEAR) Urine pH 5.0 (5-6) Ur Specific [place] 1.017 (1.005-1.025) Urine Protein NEGATIVE (Negative) Urine Ketones NEGATIVE (NEGATIVE) Urine Blood NEGATIVE (0-5) Ross/ul Urine Nitrite NEGATIVE (NEGATIVE) Urine Bilirubin NEGATIVE (NEGATIVE) Urine Urobilinogen NEGATIVE (0-1) mg/dL Ur Leukocyte Esterase NEGATIVE (NEGATIVE) Urine WBC (Auto) 0-2 (0-5) /HPF Urine RBC (Auto) 0-2 (0-2) /HPF U Epithel Cells (Auto) FEW (FEW) /HPF Urine Bacteria (Auto) RARE (NEGATIVE) /HPF Other Casts (Auto) NEGATIVE (NEGATIVE) /LPF Urine Mucus (Auto) SLIGHT (NEGATIVE) /HPF Urine Culture Reflexed ORDERED SEPARATELY (NO) Urine Glucose NEGATIVE (NEGATIVE) mg/dL 08/31/18 Range/Units 00:50 WBC 14.6 H (4.0-10.5) K/mm3 RBC 3.61 L (4.1-5.4) M/mm3 Hgb 10.8 L (12.0-16.0) gm/dl Hct 33.8 L (35-47) % MCV 93.6 (78-100) fl MCH 29.9 (26-32) pg MCHC 32.0 (32-36) g/dl RDW 15.9 H (11.5-14.0) % Plt Count 202 (150-450) K/mm3 MPV 9.0 (6-9.5) fl Gran % 86.5 H (36.0-66.0) % Eos # (Auto) 0.01 (0-0.5) Absolute Lymphs (auto) 1.29 (1.0-4.6) Absolute Monos (auto) 0.66 (0.0-1.3) Lymphocytes % 8.8 L (24.0-44.0) % Monocytes % 4.5 (0.0-12.0) % Eosinophils % 0.1 (0.00-5.0) % Basophils % 0.1 (0.0-0.4) % Absolute Granulocytes 12.64 H (1.4-6.9) Basophils # 0.02 (0-0.4) Sodium (137-145) mmol/L Potassium (3.5-5.1) mmol/L Chloride (98-107) mmol/L Carbon Dioxide (22-30) mmol/L Anion Gap (5-15) MEQ/L BUN (7-17) mg/dL Creatinine (0.52-1.04) mg/dL Estimated GFR ML/MIN Glucose (74-106) mg/dL Lactic Acid (0.4-2.0) Calcium (8.4-10.2) mg/dL Total Bilirubin (0.2-1.3) mg/dL AST (14-36) U/L ALT (0-35) U/L Alkaline Phosphatase (38-126) U/L Serum Total Protein (6.3-8.2) g/dL Albumin (3.5-5.0) g/dL Lipase (23-300) U/L Urine Color (YELLOW) Urine Appearance (CLEAR) Urine pH (5-6) Ur Specific [place] (1.005-1.025) Urine Protein (Negative) Urine Ketones (NEGATIVE) Urine Blood (0-5) Ross/ul Urine Nitrite (NEGATIVE) Urine Bilirubin (NEGATIVE) Urine Urobilinogen (0-1) mg/dL Ur Leukocyte Esterase (NEGATIVE) Urine WBC (Auto) (0-5) /HPF Urine RBC (Auto) (0-2) /HPF U Epithel Cells (Auto) (FEW) /HPF Urine Bacteria (Auto) (NEGATIVE) /HPF Other Casts (Auto) (NEGATIVE) /LPF Urine Mucus (Auto) (NEGATIVE) /HPF Urine Culture Reflexed (NO) Urine Glucose (NEGATIVE) mg/dL - Progress Progress: unchanged Progress Note: 09/01/18 02:42 Pt has been stable, afebrile, did not vomit, given Saline bolus, we reviewed her results with her and her family member, will discharge her on Reglan and Miralax to continue oral hydration and follow up with her physician next week. Counseled pt/family regarding: lab results, diagnosis, need for follow-up, rad results - Departure Departure Disposition: Home Clinical Impression: Gastroparesis Constipation Qualifiers: Constipation type: unspecified constipation type Qualified Code(s): K59.00 - Constipation, unspecified Vomiting Qualifiers: Vomiting type: unspecified Vomiting Intractability: non-intractable Nausea presence: with nausea Qualified Code(s): R11.2 - Nausea with vomiting, unspecified Condition: Stable Critical Care Time: No Referrals: FELICIA LOPEZ MD [Primary Care Provider] - Instructions: Vomiting -- Adult, Gastroparesis (Delayed Gastric Emptying) (DC) , Constipation, Adult (DC) Additional Instructions: Continue oral hydration and follow up with her physician next week, return if severe vomiting, fever> 102 F, lethargy or severe abdominal pain! Prescriptions: Metoclopramide HCl 10 mg [Reglan 10 MG] 10 mg PO HS #40 tablet Polyethylene Glycol 3350 17 gm [Miralax Powder 17GM PACKET] 17 gm PO DAILY # 14 packet
[2018-08-31] MEDS: Sodium Chloride 0.9% 1000 ML 1,000 ML IV STA (23:49)
[2018-08-31] MEDS ORDERED: Pepcid 20 MG VIAL IV ONE (23:49)
[2018-08-31] MEDS: Pepcid 20 MG VIAL IV ONE (23:49)
[2018-08-31] MEDS ORDERED: Sodium Chloride 0.9% 1000 ML 1,000 ML ONE (23:49)
[2018-09-01 00:56] LABS: BASOPHIL % 0.1 % (0.0-0.4); Basophil (Absolute #) 0.02 (0-0.4); Eosinophil % 0.1 % (0.00-5.0); Eosinophil (Absolute #) 0.01 (0-0.5); Granulocyte Absolute (ANC) 12.64 (1.4-6.9); Granulocytes % 86.5 % (36.0-66.0); Hematocrit 33.8 % (35-47); Hemoglobin 10.8 gm/dl (12.0-16.0); Lymphocyte (Absolute #) 1.29 (1.0-4.6); Lymphocytes % 8.8 % (24.0-44.0); Mean Cell Volume 93.6 fl (78-100); Mean Corpuscular Hemoglobin 29.9 pg (26-32); Monocyte (Absolute #) 0.66 (0.0-1.3); Monocytes % 4.5 % (0.0-12.0); Platelet Count 202 K/mm3 (150-450); Red Blood Count 3.61 M/mm3 (4.1-5.4); Red Cell Distribution Width 15.9 % (11.5-14.0); White Blood Count 14.6 K/mm3 (4.0-10.5)
[2018-09-01 01:08] LABS: ALKALINE PHOSPHATASE 52 U/L (38-126); BLOOD UREA NITROGEN 30 mg/dL (7-17); CHLORIDE 113 mmol/L (98-107); Calcium 8.3 mg/dL (8.4-10.2); Carbon Dioxide 20 mmol/L (22-30); Creatinine 1 0.64 mg/dL (0.52-1.04); Glucose 129 mg/dL (74-106); LIPASE 13 U/L (23-300); Potassium 3.7 mmol/L (3.5-5.1); SGOT/AST 36 U/L (14-36); SGPT/ALT 17 U/L (0-35); SODIUM 141 mmol/L (137-145); Total Protein 6.1 g/dL (6.3-8.2)
[2018-09-01 02:27] LABS: Appearance CLEAR (CLEAR); Bacteria RARE /HPF (NEGATIVE); Bilirubin NEGATIVE (NEGATIVE); Blood NEGATIVE Ery/ul (0-5); Epithelial Cells FEW /HPF (FEW); Glucose NEGATIVE (NEGATIVE); Ketones NEGATIVE (NEGATIVE); Leukocyte Esterase NEGATIVE (NEGATIVE); Mucus SLIGHT /HPF (NEGATIVE); Nitrite NEGATIVE (NEGATIVE); Protein,Urine Dip NEGATIVE (Negative); RBC 0-2 /HPF (0-2); Specific Gravity 1.017 (1.005-1.025); Urobilinogen NEGATIVE mg/dL (0-1); WBC 0-2 /HPF (0-5)
[2018-09-01 02:50] VITALS: BP 114/63; PULSE 78; O2SAT 98
--- NOTE | 2018-09-01 07:43 | XRAY ---
Indication: Emesis. Constipation. Multiple contiguous axial images obtained through the abdomen and pelvis without contrast as ordered. Comparison: January 20, 2018. Lung bases demonstrates new left lower lobe infiltrate/atelectasis. Right lung base clear. Heart is not enlarged. Noncontrasted stomach and bowel loops appear nonobstructed. Increasing large rectal/sigmoid fecal impaction. No free fluid/air. Stable gallstone, nonobstructing left renal micro-calculi, posterior urinary bladder micro-calculus versus bladder wall calcification, and calcified uterine fibroids. Remaining liver, pancreas, spleen, adrenal glands, kidneys, ureters, and bladder appear unremarkable for noncontrast exam. Stable moderate diffuse scattered vascular calcifications. No AAA. Osseous structures again demonstrates osteopenia and multilevel degenerative spondylosis. Impression: 1. Worsening sigmoid/rectal fecal impaction. 2. Stable urinary bladder micro-calculus versus bladder wall calcification, gallstone, nonobstructing left renal micro-calculi, and calcified uterine fibroids. 3. New left lung base infiltrate/atelectasis. Rule out aspiration. Comment: Preliminary interpretation was made by [facility]. No critical discrepancy. CTDI 22. 85
--- NOTE | 2018-09-01 07:45 | XRAY ---
Indication: Vomiting. Comparison: April 14, 2018. Portable chest demonstrates new CT proven left base infiltrate/atelectasis. Remaining heart and lungs unremarkable again with mitral valve calcifications and left Port-A-Cath.
== END 2018-09-01 03:47 | disposition home or self-care (01) ==
LOC: ED 22:59
DX: E11.42 Type 2 diabetes mellitus with diabetic polyneuropathy (principal); E11.41 Type 2 diabetes mellitus with diabetic mononeuropathy; Z79.4 Long term (current) use of insulin; E03.9 Hypothyroidism, unspecified; Z85.3 Personal history of malignant neoplasm of breast; I10 Essential (primary) hypertension; K44.9 Diaphragmatic hernia without obstruction or gangrene; Z79.899 Other long term (current) drug therapy
CPT/HCPCS: 36000; 36415; 71045; 74176; 80053; 81001; 83605; 83690; 85025; 87086; 96360; 96374; 99284

== ENCOUNTER 2018-12-14 14:02 | Emergency (ER) | payer MEDICARE ==
--- NOTE | 2018-12-14 14:10 | ERPHSYRPT ---
- History of Present Illness Source: patient Exam Limitations: no limitations Physician History: Patient has had dysuria over the past 3 days. 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 Patient also has left upper eyelid erythema and tenderness over the past 3 days also, but no injury history. Timing/Duration: day(s) (3) Activites at Onset: none Quality: burning Onset Location: suprapubic Pain Radiation: none Severity of Pain-Max: mild Severity of Pain-Current: none Prior abdominal problems: UTI Sexual intercourse history: non-contributory Modifying Factors: Improves With: urinating. Worsens With: coughing, defecating , movement, palpation, position Associated Symptoms: dysuria, urinary frequency, No abdominal pain, No fever, No chills, No diaphoresis, No nausea, No vomiting, No nocturia, No polyuria, No , No loss of bladder control, No lower back pain, No mass, No swelling, No syncope, No vaginal discharge, No vaginal fluid leakage Allergies/Adverse Reactions: Penicillins Allergy (Verified 08/31/18 23:07) Home Medications: Aspirin 81 mg PO DAILY 11/10/13 [History] Atenolol 12.5 mg PO BID 11/10/13 [History] Gemfibrozil 600 mg [Lopid 600 mg] 600 mg PO DAILY 11/10/13 [History] Simvastatin 40 mg [Zocor 40 mg] 40 mg PO HS 11/10/13 [History] Insulin Aspart [NovoLOG Insulin] 10 units SQ TIDAC 03/30/17 [History] Lisinopril [Zestril] 2.5 mg PO DAILY 03/30/17 [History] Insulin Glargine [Lantus Insulin] 40 units SQ HS 08/11/17 [History] Multivitamin [Multi-Vitamin Daily] 1 tab PO DAILY 08/11/17 [History] Gabapentin 300 mg PO TID PRN PRN 01/20/18 [History] Dicyclomine HCl 20 mg [Bentyl 20 mg] 10 mg PO DAILY 01/21/18 [History] Hx Tetanus, Diphtheria Vaccination/Date Given: No Hx Influenza Vaccination/Date Given: No Hx Pneumococcal Vaccination/Date Given: No - Review of Systems Constitutional: No Fever, No Chills Eyes: Eye Pain, Eye Redness, No Discharge, No Itchy, No Photophobia, No Tearing , No Vision Changes, No Double Vision, No Foreign Body Sensation Ears, Nose, & Throat: No Symptoms, No Nose Congestion, No Epistaxis, No Throat Pain, No Painful Swallowing Respiratory: No Cough, No Dyspnea Cardiac: No Chest Pain, No Edema, No Syncope Abdominal/Gastrointestinal: No Abdominal Pain, No Nausea, No Vomiting, No Diarrhea Genitourinary Symptoms: Dysuria, Frequency, No Hematuria, No Urinary Retention, No Flank Pain Musculoskeletal: No Back Pain, No Neck Pain Skin: No Rash Neurological: No Dizziness, No Focal Weakness, No Sensory Changes Psychological: No Symptoms Endocrine: No Symptoms All Other Systems: Reviewed and Negative - Past Medical History Pertinent Past Medical History: Yes Neurological History: No Pertinent History ENT History: Glaucoma Cardiac History: No Pertinent History Respiratory History: No Pertinent History Endocrine Medical History: Diabetes Type II, Hypothyroidism Musculoskeletal History: Osteoarthritis GI Medical History: Other History: No Pertinent History Psycho-Social History: No Pertinent History Female Reproductive Disorders: Breast Cancer Other Medical History: HTN, IDDM, Hypothryoidism, Breast CA. Hiatal Hernia, Gastroparesis. - Past Surgical History Past Surgical History: Yes Neuro Surgical History: No Pertinent History Cardiac: No Pertinent History Respiratory: No Pertinent History Gastrointestinal: No Pertinent History Genitourinary: No Pertinent History Musculoskeletal: Amputation, Other Female Surgical History: Lumpectomy Other Surgical History: oral surgery - wisdom teeth. back surgery - disc removed - Social History Smoking Status: Former smoker How long have you smoked: few years Exposure to second hand smoke: Yes Drug Use: none Patient Lives Alone: No - Nursing Vital Signs Nursing Vital Signs: Initial Vital Signs Temperature 98.1 F 12/14/18 14:04 Pulse Rate 74 12/14/18 14:04 Respiratory Rate 20 12/14/18 14:04 Blood Pressure 160/91 12/14/18 14:04 O2 Sat by Pulse Oximetry 100 12/14/18 14:04 Pain Scale Pain Intensity 0 - Physical Exam General Appearance: no apparent distress, alert Eye Exam: PERRL/EOMI, eyes nml inspection, other (positive erythematous and slightly swollen left upper eyelid with crusting at the eyelid/eyelash margin; positive swollen meibomian gland), No scleral icterus Ears, Nose, Throat Exam: normal ENT inspection, pharynx normal, moist mucous membranes Neck Exam: normal inspection, non-tender, supple, full range of motion Respiratory Exam: normal breath sounds, lungs clear, No respiratory distress Cardiovascular Exam: regular rate/rhythm, normal heart sounds, normal peripheral pulses Gastrointestinal/Abdomen Exam: soft, No tenderness, No mass Back Exam: normal inspection, normal range of motion, No CVA tenderness, No vertebral tenderness Extremity Exam: normal inspection, normal range of motion, pelvis stable Neurologic Exam: alert, oriented x 3, cooperative, manager perioperative II-XII nml as tested, normal mood/affect, sensation nml, No motor deficits Skin Exam: normal color, warm, dry Lymphatic Exam: No adenopathy SpO2 Interpretation: normal O2 Delivery: Room Air Ordered Tests: Active Orders 24 hr Category Date Time Status CULTURE,URINE Stat Lab 12/14/18 14:04 Uncollected UA W/RFX UR CULTURE Stat Lab 12/14/18 14:04 Uncollected Medication Summary Discontinued Medications Generic Name Dose Route Start Last Admin Trade Name Shaunq PRN Reason Stop Dose Admin Phenazopyridine HCl 200 mg 12/14/18 14:08 12/14/18 14:31 Pyridium 200 Mg PO 12/14/18 14:09 200 mg ONCE ONE Administration Phenazopyridine HCl Confirm 12/14/18 14:31 Pyridium 200 Mg Administered 12/14/18 14:32 Dose 200 mg .ROUTE .STK-MED ONE - Departure Departure Disposition: Home Clinical Impression: Acute UTI (urinary tract infection) Hordeolum externum (stye) Qualifiers: Laterality: left Eyelid: upper Qualified Code(s): H00.014 - Hordeolum externum left upper eyelid Blepharitis of eyelid of left eye Qualifiers: Blepharitis type: unspecified type Eyelid: upper Qualified Code(s): H01.004 - Unspecified blepharitis left upper eyelid Condition: Good Critical Care Time: No Referrals: FELICIA LOPEZ MD [Primary Care Provider] - Follow Up with PCP/3 days Instructions: Stye (Hordeolum), Urinary Tract Infection, Adult (DC), Blepharitis Additional Instructions: Perform lid scrubs twice a day with a clean washcloth and baby shampoo with warm compresses for 10 minutes three to four time a day. Try massaging the warm area of the bump towards the eyelash to help also twice a day. Prescriptions: Phenazopyridine HCl 200 mg [Pyridium 200 mg] 200 mg PO TID PRN #6 tablet PRN Reason: Dysuria/Urinary Symptoms Smz/Tmp Ds Tablet [Bactrim Ds Tablet] 1 tab PO Q12H #14 tablet
[2018-12-14 14:20] VITALS: PULSE 74; O2SAT 100
[2018-12-14] MEDS: PYRIDIUM 200 MG PO ONE (14:31)
[2018-12-14] MEDS ORDERED: PYRIDIUM 200 MG ONE (14:31)
[2018-12-14 15:32] VITALS: BP 131/71
== END 2018-12-14 16:21 | disposition home or self-care (01) ==
LOC: ED 14:02
DX: N39.0 Urinary tract infection, site not specified (principal); H00.014 Hordeolum externum left upper eyelid; H01.004 Unspecified blepharitis left upper eyelid
CPT/HCPCS: 99284; A9270-GY

== ENCOUNTER 2019-05-13 11:53 | Observation (INO) | payer MEDICARE ==
--- NOTE | 2019-05-13 12:08 | ERPHSYRPT ---
- History of Present Illness Time Seen by Provider: 05/13/19 12:07 Historian: patient, EMS Exam Limitations: clinical condition Patient Subjective Stated Complaint: Pt has home health care and they told the pts daughter that she was complaining of abdominal pain and so her daughter called EMS, pt denies having abdominal pain and just states that she has had some diarrhea this morning Triage Nursing Assessment: Pt wil Physician History: 79 y/o white female presents from home via EMS for evaluation of her abdominal pain. pt states she has no complaints at all. daughter and home health called the ambulance. pts stated to RN she is in bed most the time. when she cannot get up to use the restroom. pt states she did have a few bouts of diarrhea yesterday, none today. she stated she vomited yesterday but none in 24 hours. she doesnt think she needs to be here Timing/Duration: yesterday, resolved prior to arrival Activities at Onset: none Quality: other (none) Abdominal Pain Onset Location: other (none) Pain Radiation: no radiation Severity of Pain-Max: none Severity of Pain-Current: none Modifying Factors: Improves With: nothing Associated Symptoms: diarrhea (yesterday), nausea, vomiting (yesterday) Previous symptoms: no prior history Allergies/Adverse Reactions: Penicillins Allergy (Verified 05/13/19 12:08) Home Medications: Aspirin 81 mg PO DAILY 11/10/13 [History] Atenolol 12.5 mg PO BID 11/10/13 [History] Gemfibrozil 600 mg [Lopid 600 mg] 600 mg PO DAILY 11/10/13 [History] Simvastatin 40 mg [Zocor 40 mg] 40 mg PO HS 11/10/13 [History] Insulin Aspart [NovoLOG Insulin] 10 units SQ TIDAC 03/30/17 [History] lisinopriL [Zestril] 2.5 mg PO DAILY 03/30/17 [History] Insulin Glargine [Lantus Insulin] 40 units SQ HS 08/11/17 [History] Multivitamin [Multi-Vitamin Daily] 1 tab PO DAILY 08/11/17 [History] Gabapentin 300 mg PO TID PRN PRN 01/20/18 [History] Dicyclomine HCl 20 mg [Bentyl 20 mg] 10 mg PO DAILY 01/21/18 [History] Hx Tetanus, Diphtheria Vaccination/Date Given: No Hx Influenza Vaccination/Date Given: No Hx Pneumococcal Vaccination/Date Given: No - Review of Systems Constitutional: No Symptoms Eyes: No Symptoms Ears, Nose, & Throat: No Symptoms Respiratory: No Symptoms Cardiac: No Symptoms Abdominal/Gastrointestinal: No Symptoms Genitourinary Symptoms: No Symptoms Musculoskeletal: No Symptoms Skin: No Symptoms Neurological: No Symptoms Psychological: No Symptoms Endocrine: No Symptoms Hematologic/Lymphatic: No Symptoms Immunological/Allergic: No Symptoms All Other Systems: Reviewed and Negative - Past Medical History Pertinent Past Medical History: Yes Neurological History: No Pertinent History ENT History: Glaucoma Cardiac History: No Pertinent History Respiratory History: No Pertinent History Endocrine Medical History: Diabetes Type II, Hypothyroidism Musculoskeletal History: Osteoarthritis GI Medical History: Other History: No Pertinent History Psycho-Social History: No Pertinent History Female Reproductive Disorders: Breast Cancer Other Medical History: HTN, IDDM, Hypothryoidism, Breast CA. Hiatal Hernia, Gastroparesis. - Past Surgical History Past Surgical History: Yes Neuro Surgical History: No Pertinent History Cardiac: No Pertinent History Respiratory: No Pertinent History Gastrointestinal: No Pertinent History Genitourinary: No Pertinent History Musculoskeletal: Amputation, Other Female Surgical History: Lumpectomy Other Surgical History: oral surgery - wisdom teeth. back surgery - disc removed - Social History Smoking Status: Former smoker How long have you smoked: few years Exposure to second hand smoke: Yes Drug Use: none Patient Lives Alone: No - Nursing Vital Signs Nursing Vital Signs: Initial Vital Signs Temperature 98.0 F 05/13/19 11:54 Pulse Rate 74 05/13/19 11:54 Blood Pressure 110/87 05/13/19 11:54 O2 Sat by Pulse Oximetry 99 05/13/19 11:54 Pain Scale Pain Intensity 0 - Physical Exam General Appearance: no apparent distress, alert Eye Exam: PERRL/EOMI, eyes nml inspection Ears, Nose, Throat Exam: normal ENT inspection, moist mucous membranes Neck Exam: normal inspection Respiratory Exam: normal breath sounds, lungs clear, airway intact, No chest tenderness, No respiratory distress Cardiovascular Exam: regular rate/rhythm, normal heart sounds, normal peripheral pulses Gastrointestinal/Abdomen Exam: soft, normal bowel sounds, No tenderness Pelvic Exam: not done Rectal Exam: not done Back Exam: normal inspection, normal range of motion, No CVA tenderness, No vertebral tenderness Neurologic Exam: alert, oriented x 3, cooperative, ocean fishing guide II-XII nml as tested, normal mood/affect Skin Exam: normal color, warm, dry Lymphatic Exam: No adenopathy SpO2 Interpretation: normal SpO2: 99 O2 Delivery: Room Air - Course Nursing assessment & vital signs reviewed: Yes Ordered Tests: Active Orders 24 hr Category Date Time Status IV Insertion STAT Care 05/13/19 12:07 Active ABDOMEN AND PELVIS W/0 CONTRAS [CT] Stat Exams 05/13/19 13:29 Completed AMYLASE Stat Lab 05/13/19 12:30 Completed CBC W DIFF Stat Lab 05/13/19 12:30 Completed CMP Stat Lab 05/13/19 12:30 Completed CULTURE,URINE Stat Lab 05/13/19 15:04 Received LIPASE Stat Lab 05/13/19 12:30 Completed Lactic Acid Stat Lab 05/13/19 12:35 Completed Lactic Acid Stat Lab 05/13/19 14:41 Completed Manual Differential NC Stat Lab 05/13/19 12:30 Completed UA W/RFX UR CULTURE Stat Lab 05/13/19 15:04 Completed Transfer Order Routine Transfer 05/13/19 Ordered Medication Summary Discontinued Medications Generic Name Dose Route Start Last Admin Trade Name Freq PRN Reason Stop Dose Admin Sodium Chloride 1,000 mls @ 999 mls/hr 05/13/19 14:02 05/13/19 15:13 Sodium Chloride 0.9% 1000 Ml IV 05/13/19 15:02 Infused .Q1H1M STA Infusion Sodium Chloride Confirm 05/13/19 14:06 Sodium Chloride 0.9% 1000 Ml Administered 05/13/19 14:07 Dose 1,000 mls @ ud .ROUTE .K-MED ONE Lab/Rad Data: Laboratory Result Diagrams 05/13/19 12:30 05/13/19 12:30 Laboratory Results 05/13/19 05/13/19 05/13/19 Range/Units 15:04 14:41 12:35 WBC (4.0-10.5) K/mm3 RBC (4.1-5.4) M/mm3 Hgb (12.0-16.0) gm/dl Hct (35-47) % MCV (78-100) fl MCH (26-32) pg MCHC (32-36) g/dl RDW (11.5-14.0) % Plt Count (150-450) K/mm3 MPV (7.5-11.0) fl Segmented Neutrophils (36.0-66.0) % Lymphocytes (Manual) (24-44) % Monocytes (Manual) (0.0-12.0) % Platelet Estimate (NORMAL) RBC Morphology Sodium (137-145) mmol/L Potassium (3.5-5.1) mmol/L Chloride (98-107) mmol/L Carbon Dioxide (22-30) mmol/L Anion Gap (5-15) MEQ/L BUN (7-17) mg/dL Creatinine (0.52-1.04) mg/dL Estimated GFR ML/MIN Glucose (74-106) mg/dL Lactic Acid 1.7 2.5 H (0.4-2.0) Calcium (8.4-10.2) mg/dL Total Bilirubin (0.2-1.3) mg/dL AST (14-36) U/L ALT (0-35) U/L Alkaline Phosphatase (38-126) U/L Serum Total Protein (6.3-8.2) g/dL Albumin (3.5-5.0) g/dL Amylase (30-110) U/L Lipase (23-300) U/L Urine Color YELLOW (YELLOW) Urine Appearance SLIGHTLY CLOUDY (CLEAR) Urine pH 5.0 (5-6) Ur Specific [place] 1.018 (1.005-1.025) Urine Protein 100 (Negative) Urine Ketones NEGATIVE (NEGATIVE) Urine Blood NEGATIVE (0-5) Ross/ul Urine Nitrite NEGATIVE (NEGATIVE) Urine Bilirubin NEGATIVE (NEGATIVE) Urine Urobilinogen NEGATIVE (0-1) mg/dL Ur Leukocyte Esterase NEGATIVE (NEGATIVE) Urine WBC (Auto) 6-10 (0-5) /HPF Urine RBC (Auto) 3-5 (0-2) /HPF U Epithel Cells (Auto) RARE (FEW) /HPF Urine Bacteria (Auto) RARE (NEGATIVE) /HPF Urine Culture Reflexed YES (NO) Urine Glucose 50 (NEGATIVE) mg/dL 05/13/19 05/13/19 Range/Units 12:30 12:30 WBC 20.4 H (4.0-10.5) K/mm3 RBC 4.23 (4.1-5.4) M/mm3 Hgb 12.1 (12.0-16.0) gm/dl Hct 38.4 (35-47) % MCV 90.8 (78-100) fl MCH 28.6 (26-32) pg MCHC 31.5 L (32-36) g/dl RDW 14.8 H (11.5-14.0) % Plt Count 335 (150-450) K/mm3 MPV 9.3 (7.5-11.0) fl Segmented Neutrophils 80 H (36.0-66.0) % Lymphocytes (Manual) 14 L (24-44) % Monocytes (Manual) 6 (0.0-12.0) % Platelet Estimate NORMAL (NORMAL) RBC Morphology NORMAL Sodium 142 (137-145) mmol/L Potassium 3.3 L (3.5-5.1) mmol/L Chloride 105 (98-107) mmol/L Carbon Dioxide 24 (22-30) mmol/L Anion Gap 16.1 H (5-15) MEQ/L BUN 38 H (7-17) mg/dL Creatinine 0.85 (0.52-1.04) mg/dL Estimated GFR > 60.0 ML/MIN Glucose 175 H (74-106) mg/dL Lactic Acid (0.4-2.0) Calcium 10.0 (8.4-10.2) mg/dL Total Bilirubin 0.50 (0.2-1.3) mg/dL AST 28 (14-36) U/L ALT 16 (0-35) U/L Alkaline Phosphatase 67 (38-126) U/L Serum Total Protein 7.7 (6.3-8.2) g/dL Albumin 4.1 (3.5-5.0) g/dL Amylase 37 (30-110) U/L Lipase 23 (23-300) U/L Urine Color (YELLOW) Urine Appearance (CLEAR) Urine pH (5-6) Ur Specific [place] (1.005-1.025) Urine Protein (Negative) Urine Ketones (NEGATIVE) Urine Blood (0-5) Ross/ul Urine Nitrite (NEGATIVE) Urine Bilirubin (NEGATIVE) Urine Urobilinogen (0-1) mg/dL Ur Leukocyte Esterase (NEGATIVE) Urine WBC (Auto) (0-5) /HPF Urine RBC (Auto) (0-2) /HPF U Epithel Cells (Auto) (FEW) /HPF Urine Bacteria (Auto) (NEGATIVE) /HPF Urine Culture Reflexed (NO) Urine Glucose (NEGATIVE) mg/dL - Progress Progress: unchanged, re-examined Progress Note: 05/13/19 14:[address] lopez. ok to place in obs. hold on antibx for now. ok for bowel hygiene. repeat abd films, cbc, bmp in am. ct abd/pelvis fecal stasis with stool impaction sigmoid colon region Counseled pt/family regarding: lab results, diagnosis, rad results - Departure Departure Disposition: Observation Clinical Impression: Leukocytosis, Constipation Condition: Stable Critical Care Time: No Referrals: FELICIA LOPEZ MD [Primary Care Provider] -
[2019-05-13 12:43] LABS: Hematocrit 38.4 % (35-47); Hemoglobin 12.1 gm/dl (12.0-16.0); Mean Cell Volume 90.8 fl (78-100); Mean Corpuscular Hemoglobin 28.6 pg (26-32); Mean Corpuscular Hgb Concent. 31.5 g/dl (32-36); Mean Platelet Volume 9.3 fl (7.5-11.0); Platelet Count 335 K/mm3 (150-450); Red Blood Count 4.23 M/mm3 (4.1-5.4); Red Cell Distribution Width 14.8 % (11.5-14.0); White Blood Count 20.4 K/mm3 (4.0-10.5)
[2019-05-13 12:47] LABS: ALBUMIN 4.1 g/dL (3.5-5.0); ALKALINE PHOSPHATASE 67 U/L (38-126); AMYLASE 37 U/L (30-110); ANION GAP 16.1 MEQ/L (5-15); BLOOD UREA NITROGEN 38 mg/dL (7-17); CHLORIDE 105 mmol/L (98-107); Carbon Dioxide 24 mmol/L (22-30); Creatinine 1 0.85 mg/dL (0.52-1.04); Glucose 175 mg/dL (74-106); LIPASE 23 U/L (23-300); Potassium 3.3 mmol/L (3.5-5.1); SGOT/AST 28 U/L (14-36); SGPT/ALT 16 U/L (0-35); SODIUM 142 mmol/L (137-145); Total Protein 7.7 g/dL (6.3-8.2)
[2019-05-13] MEDS ORDERED: Sodium Chloride 0.9% 1000 ML 1,000 ML IV STA (14:02)
[2019-05-13] MEDS ORDERED: Sodium Chloride 0.9% 1000 ML 1,000 ML ONE (14:06)
--- NOTE | 2019-05-13 14:20 | XRAY ---
Indication: Abdomen pain, diarrhea, and leukocytosis. Multiple contiguous axial images obtained through the abdomen and pelvis without contrast as ordered. Comparison: September 01, 2018. Lung bases are clear. Heart is not enlarged. Stomach is distended with food/fluid. Mild radiopacity in the dependent stomach presumed ingested medication/bismuth. Noncontrasted small bowel loops nonobstructed. There is again large amount of fecal debris in the distal descending colon with large sigmoid/rectal impaction more than before. Subsequent increasing sigmoid colon distention up to 10.8 cm. No free fluid/air. Right kidney demonstrates new micro-calculus and mild hydronephrosis. Left kidney demonstrates increasing number/size calculi largest 6 x 7 mm at the UPJ junction without hydronephrosis or perinephric fluid. Stable gallstone, left renal cyst, and calcified uterine fibroids. Remaining liver, pancreas, spleen, adrenal glands, kidneys, ureters, and bladder appear unremarkable for noncontrast exam. Stable moderate aortoiliac calcifications without AAA. Osseous structures again demonstrates marked osteopenia, mild degenerative changes both hips, moderate degenerative changes throughout the thoracolumbar spine, and minimal grade 1 L4 spondylolisthesis. Impression: 1. Fecal stasis with significant sigmoid/rectal impaction greater than before. 2. Worsening nonobstructing left renal calculi. New right renal punctate calculus and hydronephrosis without distal ureteral calculus. 3. Stable large gallstone, tiny left renal cyst, calcified uterine fibroids, and chronic bony findings.
[2019-05-13 14:24] LABS: Lymphocytes 14 % (24-44); Monocyte 6 % (0.0-12.0); Neutrophils 80 % (36.0-66.0); Platelet Estimate NORMAL (NORMAL); Total Cells Counted 100
[2019-05-13 15:20] LABS: Appearance SLIGHTLY CLOUDY (CLEAR); Bacteria RARE /HPF (NEGATIVE); Bilirubin NEGATIVE (NEGATIVE); Blood NEGATIVE Ery/ul (0-5); Epithelial Cells RARE /HPF (FEW); Glucose 50 mg/dL (NEGATIVE); Ketones NEGATIVE (NEGATIVE); Leukocyte Esterase NEGATIVE (NEGATIVE); Nitrite NEGATIVE (NEGATIVE); Protein,Urine Dip 100 (Negative); Specific Gravity 1.018 (1.005-1.025); Urobilinogen NEGATIVE mg/dL (0-1)
[2019-05-13] MEDS ORDERED: TYLENOL 325 MG PO PRN (15:58)
[2019-05-13] MEDS ORDERED: Zofran 4 MG/2 ML VIAL IV PRN (15:58)
[2019-05-13] MEDS ORDERED: CITROMA 296 ML PO ONE (15:58)
[2019-05-13] MEDS: Sodium Chloride 0.9% 1000 ML 1,000 ML IV SCH (16:06)
[2019-05-13] MEDS ORDERED: NEURONTIN 300 MG PO PRN (17:17)
[2019-05-13] MEDS: NovoLOG Insulin SQ SCH (17:50)
[2019-05-13] MEDS: Lantus Insulin SQ SCH (20:56)
[2019-05-13] MEDS: Reglan 10 MG PO SCH (21:25)
[2019-05-13] MEDS: Colace 100 MG PO SCH (21:28)
[2019-05-13] MEDS: TENORMIN 50 MG PO SCH (21:28)
[2019-05-13] MEDS: NYSTOP 30 GM CREAM TP SCH (21:29)
[2019-05-13] MEDS ORDERED: ZOCOR 20MG PO SCH (22:00)
[2019-05-13] MEDS ORDERED: METOCLOPRAMIDE HCL 5 MG PO SCH (22:00)
[2019-05-13] MEDS ORDERED: ATENOLOL 12.5 MG PO SCH (22:00)
[2019-05-13] MEDS ORDERED: NON-FORMULARY ITEM (Simvastatin 40 Mg [Zocor 40 Mg] 40 MG) PO SCH (22:00)
[2019-05-14 05:41] LABS: Absolute Neutrophil Ct (ANC) 8.81 (1.4-6.9); BASOPHIL % 0.3 % (0.0-0.4); Basophil (Absolute #) 0.05 (0-0.4); Eosinophil % 2.3 % (0.00-5.0); Eosinophil (Absolute #) 0.34 (0-0.5); Hemoglobin 10.6 gm/dl (12.0-16.0); Lymphocyte (Absolute #) 4.34 (1.0-4.6); Lymphocytes % 28.9 % (24.0-44.0); Mean Cell Volume 91.4 fl (78-100); Mean Corpuscular Hemoglobin 28.5 pg (26-32); Mean Corpuscular Hgb Concent. 31.2 g/dl (32-36); Mean Platelet Volume 9.1 fl (7.5-11.0); Monocyte (Absolute #) 1.47 (0.0-1.3); Monocytes % 9.8 % (0.0-12.0); Neutrophil % 58.7 % (36.0-66.0); Platelet Count 273 K/mm3 (150-450); Red Blood Count 3.72 M/mm3 (4.1-5.4); Red Cell Distribution Width 14.8 % (11.5-14.0)
[2019-05-14 06:06] LABS: BLOOD UREA NITROGEN 34 mg/dL (7-17); Creatinine 1 0.81 mg/dL (0.52-1.04); Glucose 62 mg/dL (74-106); SODIUM 140 mmol/L (137-145)
[2019-05-14 06:07] LABS: ANION GAP 9.8 MEQ/L (5-15); CHLORIDE 108 mmol/L (98-107); Carbon Dioxide 25 mmol/L (22-30)
[2019-05-14] MEDS ORDERED: POTASSIUM CHLORIDE 20 mEq IN WATER 100ML 100 ML IV ONE (06:40)
[2019-05-14] MEDS: POTASSIUM CHLORIDE 20 mEq IN WATER 100ML 20 MEQ/100 ML BAG IV SCH ×2 (06:56→08:47)
[2019-05-14] MEDS: NovoLOG Insulin SQ SCH ×2 (07:33→11:09)
--- NOTE | 2019-05-14 08:57 | XRAY ---
Indication: Constipation. Comparison: CT abdomen/pelvis 1 day earlier. KUB demonstrates sigmoid/rectal fecal impaction slightly improved with persistent air distended colon again greatest in the sigmoid. No free air. Remaining solid organs organs unremarkable again with known calcific uterine fibroid. Osseous structures again demonstrates osteopenia and degenerative changes.
--- NOTE | 2019-05-14 09:05 | PCM.HP ---
History of Present Illness - Chief Complaint Chief Complaint: abdominal pain for 1-2 days History of Present Illness: is a 79 y/o white female presents from home via EMS for evaluation of her abdominal pain. pt states she has no complaints at all. daughter and home health called the ambulance. pts stated to RN she is in bed most the time. when she cannot get up to use the restroom. pt states she did have a few bouts of diarrhea yesterday, none today. she stated she vomited yesterday but none in 24 hours. she doesnt think she needs to be here - Review of Systems Constitutional: No Fever, No Chills Eyes: No Symptoms Ears, Nose, & Throat: No Symptoms Respiratory: No Cough, No Short Of Breath Cardiac: No Chest Pain, No Edema, No Syncope Abdominal/Gastrointestinal: Constipation, No Abdominal Pain, No Nausea, No Vomiting, No Diarrhea Genitourinary Symptoms: No Dysuria Musculoskeletal: No Back Pain, No Neck Pain Skin: No Rash Neurological: No Dizziness, No Focal Weakness, No Sensory Changes Psychological: No Symptoms Endocrine: No Symptoms Hematologic/Lymphatic: No Symptoms Immunological/Allergic: No Symptoms Medications & Allergies Home Medications: Home Medication List Aspirin 81 mg PO DAILY 11/10/13 [History Confirmed 05/13/19] Atenolol 12.5 mg PO BID 11/10/13 [History Confirmed 05/13/19] Gemfibrozil 600 mg [Lopid 600 mg] 600 mg PO DAILY 11/10/13 [History Confirmed 05/13/19] Simvastatin 40 mg [Zocor 40 mg] 40 mg PO HS 11/10/13 [History Confirmed 05/13/19 ] Levothyroxine Sodium 125 mcg PO DAILY #30 tablet 11/14/13 [Rx Confirmed 05/13/19 ] PANTOPRAZOLE 40 mg Tablet [Protonix 40MG Tablet] 40 mg PO DAILY #30 tab [Rx Confirmed 05/13/19] Insulin Aspart [NovoLOG Insulin] 15 units SQ TIDAC 03/30/17 [History Confirmed 05/13/19] lisinopriL [Zestril] 2.5 mg PO DAILY 03/30/17 [History Confirmed 05/13/19] Insulin Glargine [Lantus Insulin] 40 units SQ BID 08/11/17 [History Confirmed ] Multivitamin [Multi-Vitamin Daily] 1 tab PO DAILY 08/11/17 [History Confirmed ] Gabapentin 300 mg PO TID PRN PRN 01/20/18 [History Confirmed 05/13/19] Docusate Sodium 100 mg [Colace 100 MG] 100 mg PO BID 05/13/19 [History Confirmed 05/13/19] Metoclopramide HCl [Reglan] 5 mg PO BID 05/13/19 [History Confirmed 05/13/19] Nystatin Cream 30 gm [Nystop 30 gm Cream] 1 gm TP TID 05/13/19 [History Confirmed 05/13/19] Allergies/Adverse Reactions: Allergies Allergy/AdvReac Type Severity Reaction Status Date / Time Penicillins Allergy Verified 05/13/19 16:14 - Past Medical History Past Medical History: Yes Neurological History: No Pertinent History ENT History: Glaucoma Cardiac History: No Pertinent History Respiratory History: No Pertinent History Endocrine Medical History: Diabetes Type II, Hypothyroidism Musculoskelatal History: Osteoarthritis GI Medical History: Other History: No Pertinent History Pyscho-Social History: No Pertinent History Reproductive Disorders: Breast Cancer Comment: HTN, IDDM, Hypothryoidism, Breast CA. Hiatal Hernia, Gastroparesis. - Past Surgical History Past Surgical History: Yes Neuro Surgical History: No Pertinent History Cardiac History: No Pertinent History Respiratory Surgery: No Pertinent History GI Surgical History: No Pertinent History Genitourinary Surgical Hx: No Pertinent History Musculskeletal Surgical Hx: Amputation, Other Female Surgical History: Lumpectomy Other Surgical History: oral surgery - wisdom teeth. back surgery - disc removed - Social History Smoking Status: Former smoker How long have you smoked: few years Exposure to second hand smoke: Yes Alcohol: None Drug Use: none - Physical Exam Vital Signs: Vital Signs - 24 hr Temp Pulse Resp BP BP Pulse Ox 05/14/19 08:05 98 F 72 18 121/56 98 05/14/19 07:53 98 F 72 18 121/56 98 05/14/19 04:00 97.8 F 68 18 129/60 99 05/14/19 00:00 97.9 F 87 18 108/52 96 05/13/19 21:28 65 117/56 05/13/19 20:00 98.1 F 65 18 117/56 99 05/13/19 16:48 98.2 F 86 16 143/79 99 05/13/19 15:33 99 05/13/19 15:04 86 16 144/92 98 05/13/19 14:10 81 119/62 97 05/13/19 13:26 79 110/65 99 05/13/19 11:54 98.0 F 74 110/87 99 General Appearance: no apparent distress, alert Neurologic Exam: alert, oriented x 3, cooperative, normal mood/affect, nml cerebellar function, nml station & gait, sensation nml, No motor deficits Eye Exam: PERRL/EOMI, eyes nml inspection Ears, Nose, Throat Exam: normal ENT inspection, TMs normal, pharynx normal, moist mucous membranes Neck Exam: normal inspection, non-tender, supple, full range of motion Respiratory Exam: normal breath sounds, lungs clear, No respiratory distress Cardiovascular Exam: regular rate/rhythm, normal heart sounds, normal peripheral pulses Gastrointestinal/Abdomen Exam: soft, normal bowel sounds, No tenderness, No mass Back Exam: normal inspection, normal range of motion, No CVA tenderness, No vertebral tenderness Extremity Exam: normal inspection, normal range of motion, pelvis stable Skin Exam: normal color, warm, dry, No rash Lymphatic Exam: No adenopathy Results - Labs Lab/Micro Results: Accuchecks Date 05/14/19 Date 05/13/19 Date 05/13/19 Time 08:33 Time 22:00 Time 17:00 Accucheck Value: 92 Accucheck Value: 118 Accucheck Value: 167 Lab Results-Last 24 Hours 05/13/19 05/13/19 05/13/19 Range/Units 12:30 12:30 12:35 WBC 20.4 H (4.0-10.5) K/mm3 RBC 4.23 (4.1-5.4) M/mm3 Hgb 12.1 (12.0-16.0) gm/dl Hct 38.4 (35-47) % MCV 90.8 (78-100) fl MCH 28.6 (26-32) pg MCHC 31.5 L (32-36) g/dl RDW 14.8 H (11.5-14.0) % Plt Count 335 (150-450) K/mm3 MPV 9.3 (7.5-11.0) fl Gran % (36.0-66.0) % Eos # (Auto) (0-0.5) Absolute Lymphs (auto) (1.0-4.6) Absolute Monos (auto) (0.0-1.3) Lymphocytes % (24.0-44.0) % Monocytes % (0.0-12.0) % Eosinophils % (0.00-5.0) % Basophils % (0.0-0.4) % Absolute Granulocytes (1.4-6.9) Segmented Neutrophils 80 H (36.0-66.0) % Lymphocytes (Manual) 14 L (24-44) % Monocytes (Manual) 6 (0.0-12.0) % Basophils # (0-0.4) Platelet Estimate NORMAL (NORMAL) RBC Morphology NORMAL Sodium 142 (137-145) mmol/L Potassium 3.3 L (3.5-5.1) mmol/L Chloride 105 (98-107) mmol/L Carbon Dioxide 24 (22-30) mmol/L Anion Gap 16.1 H (5-15) MEQ/L BUN 38 H (7-17) mg/dL Creatinine 0.85 (0.52-1.04) mg/dL Estimated GFR > 60.0 ML/MIN Glucose 175 H (74-106) mg/dL Lactic Acid 2.5 H (0.4-2.0) Calcium 10.0 (8.4-10.2) mg/dL Total Bilirubin 0.50 (0.2-1.3) mg/dL AST 28 (14-36) U/L ALT 16 (0-35) U/L Alkaline Phosphatase 67 (38-126) U/L Serum Total Protein 7.7 (6.3-8.2) g/dL Albumin 4.1 (3.5-5.0) g/dL Amylase 37 (30-110) U/L Lipase 23 (23-300) U/L Urine Color (YELLOW) Urine Appearance (CLEAR) Urine pH (5-6) Ur Specific [place] (1.005-1.025) Urine Protein (Negative) Urine Ketones (NEGATIVE) Urine Blood (0-5) Ross/ul Urine Nitrite (NEGATIVE) Urine Bilirubin (NEGATIVE) Urine Urobilinogen (0-1) mg/dL Ur Leukocyte Esterase (NEGATIVE) Urine WBC (Auto) (0-5) /HPF Urine RBC (Auto) (0-2) /HPF U Epithel Cells (Auto) (FEW) /HPF Urine Bacteria (Auto) (NEGATIVE) /HPF Urine Culture Reflexed (NO) Urine Glucose (NEGATIVE) mg/dL 05/13/19 05/13/19 05/14/19 Range/Units 14:41 15:04 04:56 WBC 15.0 H (4.0-10.5) K/mm3 RBC 3.72 L (4.1-5.4) M/mm3 Hgb 10.6 L (12.0-16.0) gm/dl Hct 34.0 L (35-47) % MCV 91.4 (78-100) fl MCH 28.5 (26-32) pg MCHC 31.2 L (32-36) g/dl RDW 14.8 H (11.5-14.0) % Plt Count 273 (150-450) K/mm3 MPV 9.1 (7.5-11.0) fl Gran % 58.7 (36.0-66.0) % Eos # (Auto) 0.34 (0-0.5) Absolute Lymphs (auto) 4.34 (1.0-4.6) Absolute Monos (auto) 1.47 H (0.0-1.3) Lymphocytes % 28.9 (24.0-44.0) % Monocytes % 9.8 (0.0-12.0) % Eosinophils % 2.3 (0.00-5.0) % Basophils % 0.3 (0.0-0.4) % Absolute Granulocytes 8.81 H (1.4-6.9) Segmented Neutrophils (36.0-66.0) % Lymphocytes (Manual) (24-44) % Monocytes (Manual) (0.0-12.0) % Basophils # 0.05 (0-0.4) Platelet Estimate (NORMAL) RBC Morphology Sodium (137-145) mmol/L Potassium (3.5-5.1) mmol/L Chloride (98-107) mmol/L Carbon Dioxide (22-30) mmol/L Anion Gap (5-15) MEQ/L BUN (7-17) mg/dL Creatinine (0.52-1.04) mg/dL Estimated GFR ML/MIN Glucose (74-106) mg/dL Lactic Acid 1.7 (0.4-2.0) Calcium (8.4-10.2) mg/dL Total Bilirubin (0.2-1.3) mg/dL AST (14-36) U/L ALT (0-35) U/L Alkaline Phosphatase (38-126) U/L Serum Total Protein (6.3-8.2) g/dL Albumin (3.5-5.0) g/dL Amylase (30-110) U/L Lipase (23-300) U/L Urine Color YELLOW (YELLOW) Urine Appearance SLIGHTLY CLOUDY (CLEAR) Urine pH 5.0 (5-6) Ur Specific [place] 1.018 (1.005-1.025) Urine Protein 100 (Negative) Urine Ketones NEGATIVE (NEGATIVE) Urine Blood NEGATIVE (0-5) Ross/ul Urine Nitrite NEGATIVE (NEGATIVE) Urine Bilirubin NEGATIVE (NEGATIVE) Urine Urobilinogen NEGATIVE (0-1) mg/dL Ur Leukocyte Esterase NEGATIVE (NEGATIVE) Urine WBC (Auto) 6-10 (0-5) /HPF Urine RBC (Auto) 3-5 (0-2) /HPF U Epithel Cells (Auto) RARE (FEW) /HPF Urine Bacteria (Auto) RARE (NEGATIVE) /HPF Urine Culture Reflexed YES (NO) Urine Glucose 50 (NEGATIVE) mg/dL 05/14/19 Range/Units 04:56 WBC (4.0-10.5) K/mm3 RBC (4.1-5.4) M/mm3 Hgb (12.0-16.0) gm/dl Hct (35-47) % MCV (78-100) fl MCH (26-32) pg MCHC (32-36) g/dl RDW (11.5-14.0) % Plt Count (150-450) K/mm3 MPV (7.5-11.0) fl Gran % (36.0-66.0) % Eos # (Auto) (0-0.5) Absolute Lymphs (auto) (1.0-4.6) Absolute Monos (auto) (0.0-1.3) Lymphocytes % (24.0-44.0) % Monocytes % (0.0-12.0) % Eosinophils % (0.00-5.0) % Basophils % (0.0-0.4) % Absolute Granulocytes (1.4-6.9) Segmented Neutrophils (36.0-66.0) % Lymphocytes (Manual) (24-44) % Monocytes (Manual) (0.0-12.0) % Basophils # (0-0.4) Platelet Estimate (NORMAL) RBC Morphology Sodium 140 (137-145) mmol/L Potassium 3.0 L (3.5-5.1) mmol/L Chloride 108 H (98-107) mmol/L Carbon Dioxide 25 (22-30) mmol/L Anion Gap 9.8 (5-15) MEQ/L BUN 34 H (7-17) mg/dL Creatinine 0.81 (0.52-1.04) mg/dL Estimated GFR > 60.0 ML/MIN Glucose 62 L (74-106) mg/dL Lactic Acid (0.4-2.0) Calcium 9.0 (8.4-10.2) mg/dL Total Bilirubin (0.2-1.3) mg/dL AST (14-36) U/L ALT (0-35) U/L Alkaline Phosphatase (38-126) U/L Serum Total Protein (6.3-8.2) g/dL Albumin (3.5-5.0) g/dL Amylase (30-110) U/L Lipase (23-300) U/L Urine Color (YELLOW) Urine Appearance (CLEAR) Urine pH (5-6) Ur Specific [place] (1.005-1.025) Urine Protein (Negative) Urine Ketones (NEGATIVE) Urine Blood (0-5) Ross/ul Urine Nitrite (NEGATIVE) Urine Bilirubin (NEGATIVE) Urine Urobilinogen (0-1) mg/dL Ur Leukocyte Esterase (NEGATIVE) Urine WBC (Auto) (0-5) /HPF Urine RBC (Auto) (0-2) /HPF U Epithel Cells (Auto) (FEW) /HPF Urine Bacteria (Auto) (NEGATIVE) /HPF Urine Culture Reflexed (NO) Urine Glucose (NEGATIVE) mg/dL Microbiology 05/13/19 15:04 Urine Culture - Preliminary Clean Catch Midstream NO GROWTH TO DATE Accuchecks Date 05/14/19 Date 05/13/19 Date 05/13/19 Time 08:33 Time 22:00 Time 17:00 Accucheck Value: 92 Accucheck Value: 118 Accucheck Value: 167 - Radiology Impressions Radiology Exams & Impressions: Radiology Procedures Category Date Time Status ABDOMEN AND PELVIS W/0 CONTRAS [CT] Stat Exams 05/13/19 13:29 Completed KUB Routine Exams 05/14/19 07:00 Completed Assessment/Plan (1) Constipation Current Visit: Yes Status: Acute Onset Date: ~08/11/17 Assessment & Plan: continue present management Code(s): K59.00 - CONSTIPATION, UNSPECIFIED (2) Amputee, above knee Current Visit: Yes Status: Acute Qualifiers: Laterality: left Qualified Code(s): Z89.612 - Acquired absence of left leg above knee Code(s): Z89.619 - ACQUIRED ABSENCE OF UNSPECIFIED LEG ABOVE KNEE (3) Leukocytosis Current Visit: Yes Status: Acute Code(s): D72.829 - ELEVATED WHITE BLOOD CELL COUNT, UNSPECIFIED (4) Type 2 diabetes mellitus Current Visit: Yes Status: Chronic 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
[2019-05-14] MEDS: Colace 100 MG PO SCH (09:17)
[2019-05-14] MEDS: TENORMIN 50 MG PO SCH (09:17)
[2019-05-14] MEDS: Reglan 10 MG PO SCH (09:17)
[2019-05-14] MEDS: NYSTOP 30 GM CREAM TP SCH ×2 (09:20→14:03)
[2019-05-14] MEDS: Lantus Insulin SQ SCH (09:20)
[2019-05-14] MEDS ORDERED: THERAGRAN MULTIVITAMIN PO SCH (10:00)
[2019-05-14] MEDS ORDERED: Zestril 5 MG PO SCH (10:00)
[2019-05-14] MEDS ORDERED: NON-FORMULARY ITEM (Aspirin [Aspirin] 81 MG) PO SCH (10:00)
[2019-05-14] MEDS ORDERED: LOPID 600 MG PO SCH (10:00)
[2019-05-14] MEDS ORDERED: NON-FORMULARY ITEM (Multivitamin [Multi-Vitamin Daily] 1 TAB) PO SCH (10:00)
[2019-05-14] MEDS ORDERED: Protonix 40MG Tablet PO SCH (10:00)
[2019-05-14] MEDS ORDERED: SYNTHROID 125 MCG PO SCH (10:00)
[2019-05-14] MEDS ORDERED: ECOTRIN 81 MG PO SCH (10:00)
[2019-05-14] MEDS: Sodium Chloride 0.9% 1000 ML 1,000 ML IV SCH (11:09)
[2019-05-14 12:34] VITALS: BP 135/60; PULSE 62; O2SAT 100
== END 2019-05-14 15:16 | disposition home health service (06) ==
LOC: ED 11:53 → MED SURG 15:47
PROVIDERS: ADMIT General Practice; ATTEND General Practice
DX: K59.00 Constipation, unspecified (principal); R10.9 Unspecified abdominal pain; E11.9 Type 2 diabetes mellitus without complications; E03.9 Hypothyroidism, unspecified; D72.829 Elevated white blood cell count, unspecified; I10 Essential (primary) hypertension; Z85.3 Personal history of malignant neoplasm of breast; Z89.619 Acquired absence of unspecified leg above knee; Z79.899 Other long term (current) drug therapy
CPT/HCPCS: 36000; 36415; 74018; 74176; 80048; 80053; 81001; 82150; 82962; 83036; 83605; 83690; 84132; 85025; 87086; 96360; 99285; G0378; P9612; J3480; A9270-GY

== ENCOUNTER 2019-07-08 17:41 | Observation (INO) | payer MEDICARE ==
[2019-07-08] MEDS ORDERED: Sodium Chloride 0.9% 1000 ML 1,000 ML IV STA (18:01)
[2019-07-08] MEDS ORDERED: Sodium Chloride 0.9% 1000 ML 1,000 ML ONE (18:06)
--- NOTE | 2019-07-08 18:13 | ERPHSYRPT ---
- History of Present Illness Time Seen by Provider: 07/08/19 17:48 Source: patient, family, EMS Exam Limitations: other (ams) Patient Subjective Stated Complaint: pt here for weakness and confusion, daughter wanted her to check for a UTI, she fell out of bed this morning and EMS , family and pt deny any injury from fall, Triage Nursing Assessment: pt alert, but confused to time and place.resp easy, mask on, skin w/d/pale. abd soft, pt smells of fowl urine, left leg amputee, no edema Physician History: 79 years old female with history of hypertension, hyperlipidemia, multiple UTIs in the past is brought in the ER via EMS with chief complaint of altered mental status/confusion since morning. Patient fell out of her bed this morning with no apparent signs of injury. Patient is confused and not feeling herself. She is answering few questions but is not fully oriented. According to daughter she has history of multiple UTIs with similar symptoms in the past. No fever or chills reported. No vomiting. She is not in any apparent distress on presentation. History is limited secondary to her confusion. Allergies/Adverse Reactions: Penicillins Allergy (Verified 07/08/19 18:03) Home Medications: Aspirin 81 mg PO DAILY 11/10/13 [History] Atenolol 12.5 mg PO BID 11/10/13 [History] Gemfibrozil 600 mg [Lopid 600 mg] 600 mg PO DAILY 11/10/13 [History] Simvastatin 40 mg [Zocor 40 mg] 40 mg PO HS 11/10/13 [History] lisinopriL [Zestril] 2.5 mg PO DAILY 03/30/17 [History] Multivitamin [Multi-Vitamin Daily] 1 tab PO DAILY 08/11/17 [History] Gabapentin 300 mg PO TID PRN PRN 01/20/18 [History] Docusate Sodium 100 mg [Colace 100 MG] 100 mg PO BID 05/13/19 [History] Metoclopramide HCl [Reglan] 5 mg PO BID 05/13/19 [History] Nystatin Cream 30 gm [Nystop 30 gm Cream] 1 gm TP TID 05/13/19 [History] Hx Tetanus, Diphtheria Vaccination/Date Given: No Hx Influenza Vaccination/Date Given: (unsure) Hx Pneumococcal Vaccination/Date Given: (unsure) Immunizations Up to Date: Yes Travel Risk - International Travel Have you traveled outside of the country in past 3 weeks: No Have you or anyone close to you been diagnosed with or: No Do your reside in a community with a known COVID-19 case?: Yes If Yes where:: [place] - Coronavirus Screening Has patient experienced Coronavirus symptoms: No - Review of Systems All Other Systems: Unable due to condition - Past Medical History Pertinent Past Medical History: Yes Neurological History: No Pertinent History ENT History: Glaucoma Cardiac History: No Pertinent History Respiratory History: No Pertinent History Endocrine Medical History: Diabetes Type II, Hypothyroidism Musculoskeletal History: Osteoarthritis GI Medical History: Other History: No Pertinent History Psycho-Social History: No Pertinent History Female Reproductive Disorders: Breast Cancer Other Medical History: HTN, IDDM, Hypothryoidism, Breast CA. Hiatal Hernia, Gastroparesis. - Past Surgical History Past Surgical History: Yes Neuro Surgical History: No Pertinent History Cardiac: No Pertinent History Respiratory: No Pertinent History Gastrointestinal: No Pertinent History Genitourinary: No Pertinent History Musculoskeletal: Amputation, Other Female Surgical History: Lumpectomy Other Surgical History: oral surgery - wisdom teeth. back surgery - disc removed - Social History Smoking Status: Former smoker How long have you smoked: few years Exposure to second hand smoke: Yes Drug Use: none Patient Lives Alone: No - Female History Hx Last Menstrual Period: post - Nursing Vital Signs Nursing Vital Signs: Initial Vital Signs Temperature 98.4 F 07/08/19 17:49 Pulse Rate 77 07/08/19 17:49 Respiratory Rate 18 07/08/19 17:49 Blood Pressure 165/73 07/08/19 17:49 O2 Sat by Pulse Oximetry 98 07/08/19 17:49 Pain Scale Pain Intensity 0 - Physical Exam General Appearance: no apparent distress Eye Exam: PERRL/EOMI, eyes nml inspection Ears, Nose, Throat Exam: normal ENT inspection, TMs normal, pharynx normal Neck Exam: normal inspection Respiratory Exam: normal breath sounds, diminished breath sounds Cardiovascular Exam: regular rate/rhythm, normal heart sounds Gastrointestinal/Abdomen Exam: soft, normal bowel sounds, No tenderness Back Exam: normal inspection, normal range of motion Extremity Exam: normal inspection, deformities (Left below-knee amputation) Neurologic Exam: alert, sensation nml, confusion, No motor deficits Skin Exam: normal color, warm SpO2 Interpretation: normal SpO2: 98 O2 Delivery: Room Air Ordered Tests: Active Orders 24 hr Category Date Time Status Clinical Nurse Specialist STAT Care 07/08/19 19:26 Active Kathleen [Catheter-[place] Kathleen] STAT Care 07/08/19 18:24 Active IV Insertion STAT Care 07/08/19 18:01 Active CHEST 1 VIEW (PORTABLE) Stat Exams 07/08/19 18:38 Taken BLOOD CULTURE Stat Lab 07/08/19 18:30 Received CBC W DIFF Stat Lab 07/08/19 18:25 Completed CMP Stat Lab 07/08/19 18:25 Completed CULTURE,URINE Stat Lab 07/08/19 18:02 Ordered CULTURE,URINE Stat Lab 07/08/19 18:30 Received Lactic Acid Stat Lab 07/08/19 18:50 Completed Manual Differential NC Stat Lab 07/08/19 18:25 Completed UA W/RFX UR CULTURE Stat Lab 07/08/19 18:30 Completed Medication Summary Generic Name Dose Route Start Last Admin Trade Name Freq PRN Reason Stop Dose Admin Sodium Chloride 1,000 mls @ 499 mls/hr 07/08/19 18:01 07/08/19 18:08 Sodium Chloride 0.9% 1000 Ml IV 07/08/19 20:01 499 mls/hr .Q2H1M STA Administration Potassium Chloride 20 meq in 100 mls @ 50 mls/hr 07/08/19 19:05 07/08/19 19: 18 Potassium Chloride 20 Meq In Water 100ml IV 07/08/19 21:04 50 mls/hr STAT ONE Administration Levofloxacin/Dextrose 500 mg in 100 mls @ 100 mls/hr 07/08/19 19:48 Levofloxacin 500mg/100ml D5w IV 07/08/19 20:47 STAT STA Discontinued Medications Generic Name Dose Route Start Last Admin Trade Name Freq PRN Reason Stop Dose Admin Sodium Chloride Confirm 07/08/19 18:06 Sodium Chloride 0.9% 1000 Ml Administered 07/08/19 18:07 Dose 1,000 mls @ ud .ROUTE .STK-MED ONE Potassium Chloride Confirm 07/08/19 19:15 Potassium Chloride 20 Meq In Water 100ml Administered 07/08/19 19:16 Dose 100 mls @ ud IV .STK-MED ONE Lab/Rad Data: Laboratory Result Diagrams 07/08/19 18:25 07/08/19 18:25 Laboratory Results 07/08/19 07/08/19 07/08/19 Range/Units 18:50 18:30 18:25 WBC (4.0-10.5) K/mm3 RBC (4.1-5.4) M/mm3 Hgb (12.0-16.0) gm/dl Hct (35-47) % MCV (78-100) fl MCH (26-32) pg MCHC (32-36) g/dl RDW (11.5-14.0) % Plt Count (150-450) K/mm3 MPV (7.5-11.0) fl Sodium 143 (137-145) mmol/L Potassium 3.0 L (3.5-5.1) mmol/L Chloride 116 H (98-107) mmol/L Carbon Dioxide 17 L (22-30) mmol/L Anion Gap 12.5 (5-15) MEQ/L BUN 27 H (7-17) mg/dL Creatinine 0.90 (0.52-1.04) mg/dL Estimated GFR > 60.0 ML/MIN Glucose 197 H (74-106) mg/dL Lactic Acid 1.4 (0.4-2.0) Calcium 9.7 (8.4-10.2) mg/dL Total Bilirubin 0.40 (0.2-1.3) mg/dL AST 88 H (14-36) U/L ALT 38 H (0-35) U/L Alkaline Phosphatase 74 (38-126) U/L Serum Total Protein 7.1 (6.3-8.2) g/dL Albumin 3.8 (3.5-5.0) g/dL Urine Color YELLOW (YELLOW) Urine Appearance CLOUDY (CLEAR) Urine pH 5.0 (5-6) Ur Specific [place] 1.018 (1.005-1.025) Urine Protein 100 (Negative) Urine Ketones NEGATIVE (NEGATIVE) Urine Blood LARGE (0-5) Ross/ul Urine Nitrite NEGATIVE (NEGATIVE) Urine Bilirubin NEGATIVE (NEGATIVE) Urine Urobilinogen NEGATIVE (0-1) mg/dL Ur Leukocyte Esterase LARGE (NEGATIVE) Urine WBC (Auto) >100 (0-5) /HPF Urine RBC (Auto) 6-10 (0-2) /HPF U Epithel Cells (Auto) NONE (FEW) /HPF Urine Bacteria (Auto) FEW (NEGATIVE) /HPF Unidentified Crystals 2-5 (NEGATIVE) /HPF Urine Culture Reflexed YES (NO) Urine Glucose >=500 (NEGATIVE) mg/dL 07/08/19 Range/Units 18:25 WBC 13.5 H (4.0-10.5) K/mm3 RBC 4.19 (4.1-5.4) M/mm3 Hgb 12.0 (12.0-16.0) gm/dl Hct 36.6 (35-47) % MCV 87.4 (78-100) fl MCH 28.6 (26-32) pg MCHC 32.8 (32-36) g/dl RDW 15.6 H (11.5-14.0) % Plt Count 302 (150-450) K/mm3 MPV 9.6 (7.5-11.0) fl Sodium (137-145) mmol/L Potassium (3.5-5.1) mmol/L Chloride (98-107) mmol/L Carbon Dioxide (22-30) mmol/L Anion Gap (5-15) MEQ/L BUN (7-17) mg/dL Creatinine (0.52-1.04) mg/dL Estimated GFR ML/MIN Glucose (74-106) mg/dL Lactic Acid (0.4-2.0) Calcium (8.4-10.2) mg/dL Total Bilirubin (0.2-1.3) mg/dL AST (14-36) U/L ALT (0-35) U/L Alkaline Phosphatase (38-126) U/L Serum Total Protein (6.3-8.2) g/dL Albumin (3.5-5.0) g/dL Urine Color (YELLOW) Urine Appearance (CLEAR) Urine pH (5-6) Ur Specific [place] (1.005-1.025) Urine Protein (Negative) Urine Ketones (NEGATIVE) Urine Blood (0-5) Ross/ul Urine Nitrite (NEGATIVE) Urine Bilirubin (NEGATIVE) Urine Urobilinogen (0-1) mg/dL Ur Leukocyte Esterase (NEGATIVE) Urine WBC (Auto) (0-5) /HPF Urine RBC (Auto) (0-2) /HPF U Epithel Cells (Auto) (FEW) /HPF Urine Bacteria (Auto) (NEGATIVE) /HPF Unidentified Crystals (NEGATIVE) /HPF Urine Culture Reflexed (NO) Urine Glucose (NEGATIVE) mg/dL - Progress Progress: re-examined Progress Note: 07/08/19 19:50 Year years old is evaluated in the ER for confusion with generalized weakness. She is given a small bolus of fluid. She has a white count of 13, mild hyperchloremia and hypokalemia. She is given replacement for hypokalemia. She does have UTI and started on Levaquin. This is probably the reason for her confusion. I have discussed with Dr. Lopez and patient is being admitted. Discussed with : Bipin Will see patient in: hospital (observation) Counseled pt/family regarding: lab results, diagnosis, rad results - Departure Departure Disposition: Observation Clinical Impression: Acute UTI (urinary tract infection) AMS (altered mental status) Qualifiers: Altered mental status type: unspecified Qualified Code(s): R41.82 - Altered mental status, unspecified Condition: Stable Critical Care Time: Yes Critical Care Time(excluding separately billable procedures): Critical 30-74 mins Referrals: FELICIA LOPEZ MD [Primary Care Provider] -
[2019-07-08 18:44] LABS: ALBUMIN 3.8 g/dL (3.5-5.0); ALKALINE PHOSPHATASE 74 U/L (38-126); ANION GAP 12.5 MEQ/L (5-15); BLOOD UREA NITROGEN 27 mg/dL (7-17); CHLORIDE 116 mmol/L (98-107); Calcium 9.7 mg/dL (8.4-10.2); Carbon Dioxide 17 mmol/L (22-30); Glucose 197 mg/dL (74-106); SGOT/AST 88 U/L (14-36); SGPT/ALT 38 U/L (0-35); SODIUM 143 mmol/L (137-145); Total Protein 7.1 g/dL (6.3-8.2)
[2019-07-08 19:00] LABS: Hematocrit 36.6 % (35-47); Mean Cell Volume 87.4 fl (78-100); Mean Corpuscular Hemoglobin 28.6 pg (26-32); Mean Corpuscular Hgb Concent. 32.8 g/dl (32-36); Mean Platelet Volume 9.6 fl (7.5-11.0); Platelet Count 302 K/mm3 (150-450); Red Blood Count 4.19 M/mm3 (4.1-5.4); Red Cell Distribution Width 15.6 % (11.5-14.0); White Blood Count 13.5 K/mm3 (4.0-10.5)
[2019-07-08] MEDS ORDERED: POTASSIUM CHLORIDE 20 mEq IN WATER 100ML 20 MEQ/100 ML BAG IV ONE ×2 (19:05→21:22)
[2019-07-08] MEDS ORDERED: POTASSIUM CHLORIDE 20 mEq IN WATER 100ML 100 ML IV ONE (19:15)
[2019-07-08 19:22] LABS: Appearance CLOUDY (CLEAR); Bacteria FEW /HPF (NEGATIVE); Bilirubin NEGATIVE (NEGATIVE); Blood LARGE Ery/ul (0-5); Glucose >=500 mg/dL (NEGATIVE); Ketones NEGATIVE (NEGATIVE); Leukocyte Esterase LARGE (NEGATIVE); Nitrite NEGATIVE (NEGATIVE); Protein,Urine Dip 100 (Negative); Specific Gravity 1.018 (1.005-1.025); Urobilinogen NEGATIVE mg/dL (0-1); WBC >100 /HPF (0-5)
[2019-07-08] MEDS ORDERED: Levofloxacin 500MG/100ML D5W 500 MG/100 ML BAG IV STA (19:48)
[2019-07-08] MEDS ORDERED: Zofran 4 MG/2 ML VIAL IV PRN (19:50)
[2019-07-08] MEDS ORDERED: TYLENOL 325 MG PO PRN (19:50)
[2019-07-08] MEDS: Pepcid 20 MG VIAL IV SCH (21:30)
[2019-07-08 22:02] LABS: ANISOCYTOSIS 1+; BAND 1 % (0.0-2.0); Basophil 1 % (0.0-1.0); Eosinophil 1 % (0.00-3.0); Lymphocytes 35 % (24-44); Monocyte 3 % (0.0-12.0); Neutrophils 59 % (36.0-66.0); Platelet Estimate NORMAL (NORMAL); Poikilocytosis 1+; Total Cells Counted 100
[2019-07-08] MEDS: HUMALOG SQ PRN (22:18)
[2019-07-09] MEDS: Sodium Chloride 0.9% 1000 ML 1,000 ML IV SCH (04:30)
[2019-07-09 05:29] LABS: Absolute Neutrophil Ct (ANC) 6.17 (1.4-6.9); BASOPHIL % 0.2 % (0.0-0.4); Basophil (Absolute #) 0.02 (0-0.4); Eosinophil % 0.4 % (0.00-5.0); Eosinophil (Absolute #) 0.04 (0-0.5); Hematocrit 35.8 % (35-47); Hemoglobin 11.2 gm/dl (12.0-16.0); Lymphocyte (Absolute #) 2.31 (1.0-4.6); Lymphocytes % 23.9 % (24.0-44.0); Mean Cell Volume 89.5 fl (78-100); Mean Corpuscular Hgb Concent. 31.3 g/dl (32-36); Mean Platelet Volume 9.6 fl (7.5-11.0); Monocyte (Absolute #) 1.14 (0.0-1.3); Monocytes % 11.8 % (0.0-12.0); Neutrophil % 63.7 % (36.0-66.0); Platelet Count 269 K/mm3 (150-450); White Blood Count 9.7 K/mm3 (4.0-10.5)
[2019-07-09 05:48] LABS: ALBUMIN 3.5 g/dL (3.5-5.0); ALKALINE PHOSPHATASE 65 U/L (38-126); ANION GAP 10.7 MEQ/L (5-15); BLOOD UREA NITROGEN 25 mg/dL (7-17); CHLORIDE 116 mmol/L (98-107); Calcium 9.1 mg/dL (8.4-10.2); Carbon Dioxide 19 mmol/L (22-30); Glucose 205 mg/dL (74-106); Potassium 3.5 mmol/L (3.5-5.1); SGOT/AST 81 U/L (14-36); SGPT/ALT 36 U/L (0-35); SODIUM 142 mmol/L (137-145); Total Protein 6.7 g/dL (6.3-8.2)
--- NOTE | 2019-07-09 08:15 | XRAY ---
Indication: Confusion. Pneumonia. Comparison: September 01, 2018. Portable apical lordotic chest demonstrates minimal left base fibrosis/scarring. No focal infiltrate, consolidation, or large effusion. Heart is not enlarged again with mitral valve calcifications and left Port-A-Cath. Bony thorax intact again with mild osteopenia and degenerative changes. Impression: Nonacute chest with chronic features.
[2019-07-09] MEDS: HUMALOG SQ PRN ×3 (08:39→22:45)
[2019-07-09] MEDS ORDERED: NEURONTIN 300 MG PO PRN (09:56)
[2019-07-09] MEDS ORDERED: NON-FORMULARY ITEM (Multivitamin [Multi-Vitamin Daily] 1 TAB) PO SCH (10:00)
[2019-07-09] MEDS ORDERED: NON-FORMULARY ITEM (Aspirin [Aspirin] 81 MG) PO SCH (10:00)
[2019-07-09] MEDS ORDERED: METOCLOPRAMIDE HCL 5 MG PO SCH (10:00)
[2019-07-09] MEDS ORDERED: Colace 100 MG PO PRN (10:00)
[2019-07-09] MEDS ORDERED: ATENOLOL 12.5 MG PO SCH (10:00)
[2019-07-09] MEDS: Protonix 40MG Tablet PO SCH (10:42)
[2019-07-09] MEDS: SYNTHROID 125 MCG PO SCH (10:42)
[2019-07-09] MEDS: ROCEPHIN 1 Gm-D5w 50 ml Bag** 1 G/50 ML IVPB IV SCH (10:42)
[2019-07-09] MEDS: ECOTRIN 81 MG PO SCH (10:42)
[2019-07-09] MEDS: TENORMIN 50 MG PO SCH ×2 (10:42→22:41)
[2019-07-09] MEDS: NYSTOP 30 GM CREAM TP SCH ×3 (10:44→23:00)
[2019-07-09] MEDS: THERAGRAN MULTIVITAMIN PO SCH (10:44)
[2019-07-09] MEDS: Pepcid 20 MG VIAL IV SCH ×2 (10:44→22:44)
[2019-07-09] MEDS: LOPID 600 MG PO SCH (10:45)
[2019-07-09] MEDS: Zestril 5 MG PO SCH (10:45)
--- NOTE | 2019-07-09 11:32 | PCM.HP ---
History of Present Illness - Chief Complaint Chief Complaint: altered mental status History of Present Illness: is a 79 years old female with history of hypertension, hyperlipidemia, multiple UTIs in the past is brought in the ER via EMS with chief complaint of altered mental status/confusion since morning. Patient fell out of her bed this morning with no apparent signs of injury. Patient is confused and not feeling herself. She is answering few questions but is not fully oriented. According to daughter she has history of multiple UTIs with similar symptoms in the past. No fever or chills reported. No vomiting. She is not in any apparent distress on presentation. History is limited secondary to her confusion.. - Review of Systems Constitutional: No Fever, No Chills Eyes: No Symptoms Ears, Nose, & Throat: No Symptoms Respiratory: No Cough, No Short Of Breath Cardiac: No Chest Pain, No Edema, No Syncope Abdominal/Gastrointestinal: No Abdominal Pain, No Nausea, No Vomiting, No Diarrhea Genitourinary Symptoms: No Dysuria Musculoskeletal: No Back Pain, No Neck Pain Skin: No Rash Neurological: No Dizziness, No Focal Weakness, No Sensory Changes Psychological: No Symptoms Endocrine: No Symptoms Hematologic/Lymphatic: No Symptoms Immunological/Allergic: No Symptoms Medications & Allergies Home Medications: Home Medication List Aspirin 81 mg PO DAILY 11/10/13 [History Confirmed 07/08/19] Atenolol 12.5 mg PO BID 11/10/13 [History Confirmed 07/08/19] Gemfibrozil 600 mg [Lopid 600 mg] 600 mg PO DAILY 11/10/13 [History Confirmed 07/08/19] Simvastatin 40 mg [Zocor 40 mg] 40 mg PO HS 11/10/13 [History Confirmed 07/08/19 ] Levothyroxine Sodium 125 mcg PO DAILY #30 tablet 11/14/13 [Rx Confirmed 07/08/19 ] PANTOPRAZOLE 40 mg Tablet [Protonix 40MG Tablet] 40 mg PO DAILY #30 tab [Rx Confirmed 07/08/19] lisinopriL [Zestril] 2.5 mg PO DAILY 03/30/17 [History Confirmed 07/08/19] Multivitamin [Multi-Vitamin Daily] 1 tab PO DAILY 08/11/17 [History Confirmed ] Gabapentin 300 mg PO TID PRN PRN 01/20/18 [History Confirmed 07/08/19] Docusate Sodium 100 mg [Colace 100 MG] 100 mg PO BID 05/13/19 [History Confirmed 07/08/19] Metoclopramide HCl [Reglan] 5 mg PO BID 05/13/19 [History Confirmed 07/08/19] Nystatin Cream 30 gm [Nystop 30 gm Cream] 1 gm TP TID 05/13/19 [History Confirmed 07/08/19] Allergies/Adverse Reactions: Allergies Allergy/AdvReac Type Severity Reaction Status Date / Time Penicillins Allergy Verified 07/08/19 18:03 - Past Medical History Past Medical History: Yes Neurological History: No Pertinent History ENT History: Glaucoma Cardiac History: No Pertinent History Respiratory History: No Pertinent History Endocrine Medical History: Diabetes Type II, Hypothyroidism Musculoskelatal History: Osteoarthritis GI Medical History: Other History: No Pertinent History Pyscho-Social History: No Pertinent History Reproductive Disorders: Breast Cancer Comment: HTN, IDDM, Hypothryoidism, Breast CA. Hiatal Hernia, Gastroparesis. - Female History Hx Last Menstrual Period: post Are you now?: No - Past Surgical History Past Surgical History: Yes Neuro Surgical History: No Pertinent History Cardiac History: No Pertinent History Respiratory Surgery: No Pertinent History GI Surgical History: No Pertinent History Genitourinary Surgical Hx: No Pertinent History Musculskeletal Surgical Hx: Amputation, Other Female Surgical History: Lumpectomy Other Surgical History: oral surgery - wisdom teeth. back surgery - disc removed - Social History Smoking Status: Former smoker How long have you smoked: few years Exposure to second hand smoke: No Alcohol: None Drug Use: none - Physical Exam Vital Signs: Vital Signs - 24 hr Temp Pulse Resp BP BP Pulse Ox 07/09/19 10:42 74 115/58 07/09/19 07:51 98.8 F 70 18 115/58 98 07/09/19 04:00 98.1 F 72 16 117/65 98 07/08/19 23:38 98.8 F 76 20 134/59 98 07/08/19 20:56 98.0 F 72 20 128/79 98 07/08/19 19:50 98 07/08/19 19:25 80 16 135/56 97 07/08/19 17:49 98.4 F 77 18 165/73 98 General Appearance: no apparent distress, alert Neurologic Exam: alert, oriented x 3, cooperative, normal mood/affect, nml cerebellar function, nml station & gait, sensation nml, No motor deficits Eye Exam: PERRL/EOMI, eyes nml inspection Ears, Nose, Throat Exam: normal ENT inspection, TMs normal, pharynx normal, moist mucous membranes Neck Exam: normal inspection, non-tender, supple, full range of motion Respiratory Exam: normal breath sounds, lungs clear, No respiratory distress Cardiovascular Exam: regular rate/rhythm, normal heart sounds, normal peripheral pulses Gastrointestinal/Abdomen Exam: soft, normal bowel sounds, No tenderness, No mass Back Exam: normal inspection, normal range of motion, No CVA tenderness, No vertebral tenderness Extremity Exam: normal inspection, normal range of motion, pelvis stable Skin Exam: normal color, warm, dry, No rash Lymphatic Exam: No adenopathy Results - Labs Lab/Micro Results: Accuchecks Date 07/09/19 Time 05:00 Accucheck Value: 186 Lab Results-Last 24 Hours 07/08/19 07/08/19 07/08/19 Range/Units 18:25 18:25 18:30 WBC 13.5 H (4.0-10.5) K/mm3 RBC 4.19 (4.1-5.4) M/mm3 Hgb 12.0 (12.0-16.0) gm/dl Hct 36.6 (35-47) % MCV 87.4 (78-100) fl MCH 28.6 (26-32) pg MCHC 32.8 (32-36) g/dl RDW 15.6 H (11.5-14.0) % Plt Count 302 (150-450) K/mm3 MPV 9.6 (7.5-11.0) fl Gran % (36.0-66.0) % Eos # (Auto) (0-0.5) Absolute Lymphs (auto) (1.0-4.6) Absolute Monos (auto) (0.0-1.3) Lymphocytes % (24.0-44.0) % Monocytes % (0.0-12.0) % Eosinophils % (0.00-5.0) % Basophils % (0.0-0.4) % Absolute Granulocytes (1.4-6.9) Segmented Neutrophils 59 (36.0-66.0) % Band Neutrophils 1 (0.0-2.0) % Lymphocytes (Manual) 35 (24-44) % Monocytes (Manual) 3 (0.0-12.0) % Eosinophils (Manual) 1 (0.00-3.0) % Basophils (Manual) 1 (0.0-1.0) % Basophils # (0-0.4) Platelet Estimate NORMAL (NORMAL) RBC Morphology ABNORMAL Poikilocytosis 1+ Anisocytosis 1+ Sodium 143 (137-145) mmol/L Potassium 3.0 L (3.5-5.1) mmol/L Chloride 116 H (98-107) mmol/L Carbon Dioxide 17 L (22-30) mmol/L Anion Gap 12.5 (5-15) MEQ/L BUN 27 H (7-17) mg/dL Creatinine 0.90 (0.52-1.04) mg/dL Estimated GFR > 60.0 ML/MIN Glucose 197 H (74-106) mg/dL Lactic Acid (0.4-2.0) Calcium 9.7 (8.4-10.2) mg/dL Total Bilirubin 0.40 (0.2-1.3) mg/dL AST 88 H (14-36) U/L ALT 38 H (0-35) U/L Alkaline Phosphatase 74 (38-126) U/L Serum Total Protein 7.1 (6.3-8.2) g/dL Albumin 3.8 (3.5-5.0) g/dL Urine Color YELLOW (YELLOW) Urine Appearance CLOUDY (CLEAR) Urine pH 5.0 (5-6) Ur Specific [place] 1.018 (1.005-1.025) Urine Protein 100 (Negative) Urine Ketones NEGATIVE (NEGATIVE) Urine Blood LARGE (0-5) Ross/ul Urine Nitrite NEGATIVE (NEGATIVE) Urine Bilirubin NEGATIVE (NEGATIVE) Urine Urobilinogen NEGATIVE (0-1) mg/dL Ur Leukocyte Esterase LARGE (NEGATIVE) Urine WBC (Auto) >100 (0-5) /HPF Urine RBC (Auto) 6-10 (0-2) /HPF U Epithel Cells (Auto) NONE (FEW) /HPF Urine Bacteria (Auto) FEW (NEGATIVE) /HPF Unidentified Crystals 2-5 (NEGATIVE) /HPF Urine Culture Reflexed YES (NO) Urine Glucose >=500 (NEGATIVE) mg/dL 07/08/19 07/09/19 07/09/19 Range/Units 18:50 02:00 04:25 WBC 9.7 (4.0-10.5) K/mm3 RBC 4.00 L (4.1-5.4) M/mm3 Hgb 11.2 L (12.0-16.0) gm/dl Hct 35.8 (35-47) % MCV 89.5 (78-100) fl MCH 28.0 (26-32) pg MCHC 31.3 L (32-36) g/dl RDW 16.0 H (11.5-14.0) % Plt Count 269 (150-450) K/mm3 MPV 9.6 (7.5-11.0) fl Gran % 63.7 (36.0-66.0) % Eos # (Auto) 0.04 (0-0.5) Absolute Lymphs (auto) 2.31 (1.0-4.6) Absolute Monos (auto) 1.14 (0.0-1.3) Lymphocytes % 23.9 L (24.0-44.0) % Monocytes % 11.8 (0.0-12.0) % Eosinophils % 0.4 (0.00-5.0) % Basophils % 0.2 (0.0-0.4) % Absolute Granulocytes 6.17 (1.4-6.9) Segmented Neutrophils (36.0-66.0) % Band Neutrophils (0.0-2.0) % Lymphocytes (Manual) (24-44) % Monocytes (Manual) (0.0-12.0) % Eosinophils (Manual) (0.00-3.0) % Basophils (Manual) (0.0-1.0) % Basophils # 0.02 (0-0.4) Platelet Estimate (NORMAL) RBC Morphology Poikilocytosis Anisocytosis Sodium (137-145) mmol/L Potassium 3.7 D (3.5-5.1) mmol/L Chloride (98-107) mmol/L Carbon Dioxide (22-30) mmol/L Anion Gap (5-15) MEQ/L BUN (7-17) mg/dL Creatinine (0.52-1.04) mg/dL Estimated GFR ML/MIN Glucose (74-106) mg/dL Lactic Acid 1.4 (0.4-2.0) Calcium (8.4-10.2) mg/dL Total Bilirubin (0.2-1.3) mg/dL AST (14-36) U/L ALT (0-35) U/L Alkaline Phosphatase (38-126) U/L Serum Total Protein (6.3-8.2) g/dL Albumin (3.5-5.0) g/dL Urine Color (YELLOW) Urine Appearance (CLEAR) Urine pH (5-6) Ur Specific [place] (1.005-1.025) Urine Protein (Negative) Urine Ketones (NEGATIVE) Urine Blood (0-5) Ross/ul Urine Nitrite (NEGATIVE) Urine Bilirubin (NEGATIVE) Urine Urobilinogen (0-1) mg/dL Ur Leukocyte Esterase (NEGATIVE) Urine WBC (Auto) (0-5) /HPF Urine RBC (Auto) (0-2) /HPF U Epithel Cells (Auto) (FEW) /HPF Urine Bacteria (Auto) (NEGATIVE) /HPF Unidentified Crystals (NEGATIVE) /HPF Urine Culture Reflexed (NO) Urine Glucose (NEGATIVE) mg/dL 07/09/19 Range/Units 04:25 WBC (4.0-10.5) K/mm3 RBC (4.1-5.4) M/mm3 Hgb (12.0-16.0) gm/dl Hct (35-47) % MCV (78-100) fl MCH (26-32) pg MCHC (32-36) g/dl RDW (11.5-14.0) % Plt Count (150-450) K/mm3 MPV (7.5-11.0) fl Gran % (36.0-66.0) % Eos # (Auto) (0-0.5) Absolute Lymphs (auto) (1.0-4.6) Absolute Monos (auto) (0.0-1.3) Lymphocytes % (24.0-44.0) % Monocytes % (0.0-12.0) % Eosinophils % (0.00-5.0) % Basophils % (0.0-0.4) % Absolute Granulocytes (1.4-6.9) Segmented Neutrophils (36.0-66.0) % Band Neutrophils (0.0-2.0) % Lymphocytes (Manual) (24-44) % Monocytes (Manual) (0.0-12.0) % Eosinophils (Manual) (0.00-3.0) % Basophils (Manual) (0.0-1.0) % Basophils # (0-0.4) Platelet Estimate (NORMAL) RBC Morphology Poikilocytosis Anisocytosis Sodium 142 (137-145) mmol/L Potassium 3.5 (3.5-5.1) mmol/L Chloride 116 H (98-107) mmol/L Carbon Dioxide 19 L (22-30) mmol/L Anion Gap 10.7 (5-15) MEQ/L BUN 25 H (7-17) mg/dL Creatinine 0.90 (0.52-1.04) mg/dL Estimated GFR > 60.0 ML/MIN Glucose 205 H (74-106) mg/dL Lactic Acid (0.4-2.0) Calcium 9.1 (8.4-10.2) mg/dL Total Bilirubin 0.40 (0.2-1.3) mg/dL AST 81 H (14-36) U/L ALT 36 H (0-35) U/L Alkaline Phosphatase 65 (38-126) U/L Serum Total Protein 6.7 (6.3-8.2) g/dL Albumin 3.5 (3.5-5.0) g/dL Urine Color (YELLOW) Urine Appearance (CLEAR) Urine pH (5-6) Ur Specific [place] (1.005-1.025) Urine Protein (Negative) Urine Ketones (NEGATIVE) Urine Blood (0-5) Ross/ul Urine Nitrite (NEGATIVE) Urine Bilirubin (NEGATIVE) Urine Urobilinogen (0-1) mg/dL Ur Leukocyte Esterase (NEGATIVE) Urine WBC (Auto) (0-5) /HPF Urine RBC (Auto) (0-2) /HPF U Epithel Cells (Auto) (FEW) /HPF Urine Bacteria (Auto) (NEGATIVE) /HPF Unidentified Crystals (NEGATIVE) /HPF Urine Culture Reflexed (NO) Urine Glucose (NEGATIVE) mg/dL Microbiology 07/08/19 18:30 Urine Culture - Preliminary Catherized GRAM NEGATIVE ID AND SENSITIVITY PENDING Accuchecks Date 07/09/19 Time 05:00 Accucheck Value: 186 - Radiology Impressions Radiology Exams & Impressions: Radiology Procedures Category Date Time Status CHEST 1 VIEW (PORTABLE) Stat Exams 07/08/19 18:38 Completed Assessment/Plan (1) Acute UTI (urinary tract infection) Current Visit: Yes Status: Acute Assessment & Plan: Chief Complaint Diagnosis AMS, UTI Allergies Allergy/AdvReac Type Severity Reaction Status Date / Time Penicillins Allergy Verified 07/08/19 18:03 Vital Signs (Last 24 hours) Temp Pulse Resp BP BP Pulse Ox 07/09/19 10:42 74 115/58 07/09/19 07:51 98.8 F 70 18 115/58 98 07/09/19 04:00 98.1 F 72 16 117/65 98 07/08/19 23:38 98.8 F 76 20 134/59 98 07/08/19 20:56 98.0 F 72 20 128/79 98 07/08/19 19:50 98 07/08/19 19:25 80 16 135/56 97 07/08/19 17:49 98.4 F 77 18 165/73 98 Current Medications Generic Name Dose Route Start Last Admin Trade Name Freq PRN Reason Stop Dose Admin Acetaminophen 650 mg 07/08/19 19:50 Tylenol 325 Mg PO 08/07/19 19:49 Q4H PRN PRN PAIN AND/OR FEVER Aspirin 81 mg 07/09/19 10:00 07/09/19 10:42 Ecotrin 81 Mg PO 08/08/19 09:59 81 mg DAILY CINTHIA Administration Atenolol 12.5 mg 07/09/19 10:00 07/09/19 10:42 Tenormin 50 Mg PO 08/08/19 09:59 12.5 mg BID CINTHIA Administration Docusate Sodium 100 mg 07/09/19 10:00 Colace 100 Mg PO 08/08/19 09:59 BID PRN PRN Famotidine 20 mg 07/08/19 22:00 07/09/19 10:44 Pepcid 20 Mg Vial IV 08/07/19 21:59 20 mg Q12HT CINTHIA Administration Gabapentin 300 mg 07/09/19 09:56 Neurontin 300 Mg PO 08/08/19 09:55 TID PRN PRN PAIN Gemfibrozil 600 mg 07/09/19 10:00 07/09/19 10:45 Lopid 600 Mg PO 08/08/19 09:59 600 mg DAILY CINTHIA Administration Sodium Chloride 1,000 mls @ 50 mls/hr 07/08/19 23:00 07/09/19 04:30 Sodium Chloride 0.9% 1000 Ml IV 08/07/19 22:59 50 mls/hr .Q20H CINTHIA Administration Ceftriaxone Sodium/Dextrose 1 g in 50 mls @ 100 mls/hr 07/09/19 10:00 10:42 Rocephin 1 Gm-D5w 50 Ml Bag IV 08/08/19 09:59 100 mls/hr Q24H10 CINTHIA Administration Insulin Human Lispro 0 unit 07/08/19 19:50 07/09/19 08:39 Humalog SQ 08/07/19 19:49 5 unit UD PRN Administration HYPERGLYCEMIA Levothyroxine Sodium 125 mcg 07/09/19 10:00 07/09/19 10:42 Synthroid 125 Mcg PO 08/08/19 09:59 125 mcg DAILY CINTHIA Administration Lisinopril 2.5 mg 07/09/19 10:00 07/09/19 10:45 Zestril 5 Mg PO 08/08/19 09:59 2.5 mg DAILY CINTHIA Administration Metoclopramide HCl 5 mg 07/09/19 10:00 Reglan 10 Mg PO 08/08/19 09:59 BIDAC CINTHIA Multivitamins Therapeutic 1 tab 07/09/19 10:00 Theragran Multivitamin PO 08/08/19 09:59 DAILY CINTHIA Nystatin 1 gm 07/09/19 10:00 07/09/19 10:44 Nystop 30 Gm Cream TP 08/08/19 09:59 1 gm TID CINTHIA Administration Ondansetron HCl 4 mg 07/08/19 19:50 Zofran 4 Mg/2 Ml Vial IV 08/07/19 19:49 Q6H PRN PRN NAUSEA/VOMITING Pantoprazole Sodium 40 mg 07/09/19 10:00 07/09/19 10:42 Protonix 40mg Tablet PO 08/08/19 09:59 40 mg DAILY CINTHIA Administration Simvastatin 40 mg 07/09/19 22:00 Zocor 20mg PO 08/08/19 21:59 HS CINTHIA Discontinued Medications Generic Name Dose Route Start Last Admin Trade Name Yareli PRN Reason Stop Dose Admin Sodium Chloride 1,000 mls @ 499 mls/hr 07/08/19 18:01 07/08/19 18:08 Sodium Chloride 0.9% 1000 Ml IV 07/08/19 20:01 499 mls/hr .Q2H1M STA Administration Sodium Chloride Confirm 07/08/19 18:06 Sodium Chloride 0.9% 1000 Ml Administered 07/08/19 18:07 Dose 1,000 mls @ ud .ROUTE .STK-MED ONE Potassium Chloride 20 meq in 100 mls @ 50 mls/hr 07/08/19 19:05 07/08/19 19: 18 Potassium Chloride 20 Meq In Water 100ml IV 07/08/19 21:04 50 mls/hr STAT ONE Administration Potassium Chloride Confirm 07/08/19 19:15 Potassium Chloride 20 Meq In Water 100ml Administered 07/08/19 19:16 Dose 100 mls @ ud IV .STK-MED ONE Levofloxacin/Dextrose 500 mg in 100 mls @ 100 mls/hr 07/08/19 19:48 07/08/19 21:28 Levofloxacin 500mg/100ml D5w IV 07/08/19 20:47 100 mls/hr STAT STA Administration Potassium Chloride 20 meq in 100 mls @ 50 mls/hr 07/08/19 21:22 07/08/19 21: 29 Potassium Chloride 20 Meq In Water 100ml IV 07/08/19 23:21 50 mls/hr STAT ONE Administration Intake & Output (Last 24 hours) 07/06/19 07/07/19 07/08/19 07/09/19 11:59 11:59 11:59 11:59 Intake Total 1741 Output Total 700 Balance 1041 Weight 65.7 kg Microbiology Results (Last 24 hours) 07/08/19 18:30 Catherized Urine Culture - Preliminary GRAM NEGATIVE ID AND SENSITIVITY PENDING 07/08/19 18:30 Blood Blood Culture Gram Stain - Pending 07/08/19 18:30 Blood Blood Culture - Pending 07/08/19 18:25 Blood Blood Culture Gram Stain - Pending 07/08/19 18:25 Blood Blood Culture - Pending Laboratory Results (Last 24 hours) 07/09/19 07/09/19 07/09/19 04:25 04:25 02:00 WBC 9.7 RBC 4.00 L Hgb 11.2 L Hct 35.8 MCV 89.5 MCH 28.0 MCHC 31.3 L RDW 16.0 H Plt Count 269 MPV 9.6 Gran % 63.7 Eos # (Auto) 0.04 Absolute Lymphs (auto) 2.31 Absolute Monos (auto) 1.14 Lymphocytes % 23.9 L Monocytes % 11.8 Eosinophils % 0.4 Basophils % 0.2 Absolute Granulocytes 6.17 Segmented Neutrophils Band Neutrophils Lymphocytes (Manual) Monocytes (Manual) Eosinophils (Manual) Basophils (Manual) Basophils # 0.02 Platelet Estimate RBC Morphology Poikilocytosis Anisocytosis Sodium 142 Potassium 3.5 3.7 D Chloride 116 H Carbon Dioxide 19 L Anion Gap 10.7 BUN 25 H Creatinine 0.90 Estimated GFR > 60.0 Glucose 205 H Lactic Acid Calcium 9.1 Total Bilirubin 0.40 AST 81 H ALT 36 H Alkaline Phosphatase 65 Serum Total Protein 6.7 Albumin 3.5 Urine Color Urine Appearance Urine pH Ur Specific [place] Urine Protein Urine Ketones Urine Blood Urine Nitrite Urine Bilirubin Urine Urobilinogen Ur Leukocyte Esterase Urine WBC (Auto) Urine RBC (Auto) U Epithel Cells (Auto) Urine Bacteria (Auto) Unidentified Crystals Urine Culture Reflexed Urine Glucose 07/08/19 07/08/19 07/08/19 18:50 18:30 18:25 WBC RBC Hgb Hct MCV MCH MCHC RDW Plt Count MPV Gran % Eos # (Auto) Absolute Lymphs (auto) Absolute Monos (auto) Lymphocytes % Monocytes % Eosinophils % Basophils % Absolute Granulocytes Segmented Neutrophils Band Neutrophils Lymphocytes (Manual) Monocytes (Manual) Eosinophils (Manual) Basophils (Manual) Basophils # Platelet Estimate RBC Morphology Poikilocytosis Anisocytosis Sodium 143 Potassium 3.0 L Chloride 116 H Carbon Dioxide 17 L Anion Gap 12.5 BUN 27 H Creatinine 0.90 Estimated GFR > 60.0 Glucose 197 H Lactic Acid 1.4 Calcium 9.7 Total Bilirubin 0.40 AST 88 H ALT 38 H Alkaline Phosphatase 74 Serum Total Protein 7.1 Albumin 3.8 Urine Color YELLOW Urine Appearance CLOUDY Urine pH 5.0 Ur Specific [place] 1.018 Urine Protein 100 Urine Ketones NEGATIVE Urine Blood LARGE Urine Nitrite NEGATIVE Urine Bilirubin NEGATIVE Urine Urobilinogen NEGATIVE Ur Leukocyte Esterase LARGE Urine WBC (Auto) >100 Urine RBC (Auto) 6-10 U Epithel Cells (Auto) NONE Urine Bacteria (Auto) FEW Unidentified Crystals 2-5 Urine Culture Reflexed YES Urine Glucose >=500 07/08/19 18:25 WBC 13.5 H RBC 4.19 Hgb 12.0 Hct 36.6 MCV 87.4 MCH 28.6 MCHC 32.8 RDW 15.6 H Plt Count 302 MPV 9.6 Gran % Eos # (Auto) Absolute Lymphs (auto) Absolute Monos (auto) Lymphocytes % Monocytes % Eosinophils % Basophils % Absolute Granulocytes Segmented Neutrophils 59 Band Neutrophils 1 Lymphocytes (Manual) 35 Monocytes (Manual) 3 Eosinophils (Manual) 1 Basophils (Manual) 1 Basophils # Platelet Estimate NORMAL RBC Morphology ABNORMAL Poikilocytosis 1+ Anisocytosis 1+ Sodium Potassium Chloride Carbon Dioxide Anion Gap BUN Creatinine Estimated GFR Glucose Lactic Acid Calcium Total Bilirubin AST ALT Alkaline Phosphatase Serum Total Protein Albumin Urine Color Urine Appearance Urine pH Ur Specific [place] Urine Protein Urine Ketones Urine Blood Urine Nitrite Urine Bilirubin Urine Urobilinogen Ur Leukocyte Esterase Urine WBC (Auto) Urine RBC (Auto) U Epithel Cells (Auto) Urine Bacteria (Auto) Unidentified Crystals Urine Culture Reflexed Urine Glucose Orders (Last 24 hours) Category Date Time Status Up With Assistance ROUTINE Activity 07/08/19 19:50 Active ACCUCHECK [Accucheck] ACHS Care 07/08/19 20:38 Active Bobbin Cleaner STAT Care 07/08/19 19:26 Active Code Status Order ROUTINE Care 07/08/19 19:51 Active Kathleen [Catheter-Rogers Kathleen] STAT Care 07/08/19 18:24 Active IV Care Q6H Care 07/08/19 19:51 Completed IV Insertion STAT Care 07/08/19 18:01 Active Order K Level 2 hours post-inf 2 HRS POST K-INFUSED Care 07/08/19 21:[address] in Observation ROUTINE Care 07/08/19 19:51 Active Telemetry Q12H Care 07/08/19 21:22 Active Infection Control Consult Cons 07/08/19 21:17 Active Nutritional Admission Screen Diet 07/08/19 21:17 Active CHEST 1 VIEW (PORTABLE) Stat Exams 07/08/19 18:38 Completed BLOOD CULTURE Stat Lab 07/08/19 18:30 Received CBC W DIFF AM.LAB Lab 07/09/19 04:25 Completed CBC W DIFF Stat Lab 07/08/19 18:25 Completed CMP AM.LAB Lab 07/09/19 04:25 Completed CMP Stat Lab 07/08/19 18:25 Completed CULTURE,URINE Stat Lab 07/08/19 18:30 Results Lactic Acid Stat Lab 07/08/19 18:50 Completed Manual Differential NC Stat Lab 07/08/19 18:25 Completed Pot [Potassium] Routine Lab 07/09/19 02:00 Completed UA W/RFX UR CULTURE Stat Lab 07/08/19 18:30 Completed Acetaminophen 325 mg [Tylenol 325 mg] Med 07/08/19 19:50 Active 650 mg PO Q4H PRN PRN Aspirin EC 81 mg [Ecotrin 81 mg] Med 07/09/19 10:00 Active 81 mg PO DAILY Atenolol 50 mg [Tenormin 50 mg] Med 07/09/19 10:00 Active 12.5 mg PO BID Ceftriaxone 1 GM/50 ML PREMIX* [ROCEPHIN 1 Gm-D5w 50 ml Med 07/09/19 10:00 Active Bag] 1 g in 50 ml IV Q24H10 Docusate Sodium 100 mg [Colace 100 MG] Med 07/09/19 10:00 Active 100 mg PO BID PRN PRN Famotidine 20 mg Vial [Pepcid 20 MG VIAL] Med 07/08/19 22:00 Active 20 mg IV Q12HT Gabapentin 300 mg [Neurontin 300 mg] Med 07/09/19 09:56 Active 300 mg PO TID PRN PRN Gemfibrozil 600 mg [Lopid 600 mg] Med 07/09/19 10:00 Active 600 mg PO DAILY Insulin Lispro [Humalog] Med 07/08/19 19:50 Active See Dose Instructions SQ UD PRN Levofloxacin [Levofloxacin 500MG/100ML D5W] Med 07/08/19 19:48 Discontinued 500 mg in 100 ml IV STAT Levothyroxine Sodium 125 Mcg [Synthroid 125 Mcg] Med 07/09/19 10:00 Active 125 mcg PO DAILY Lisinopril 5 mg [Zestril 5 MG] Med 07/09/19 10:00 Active 2.5 mg PO DAILY Metoclopramide HCl 10 mg [Reglan 10 MG] Med 07/09/19 10:00 Active 5 mg PO BIDAC Multivitamins,Therapeutic Tab* [Theragran Multivitamin* Med 07/09/19 10:00 Active ] 1 tab PO DAILY NaCl 0.9% 1000 ml [Sodium Chloride 0.9% 1000 ML] 1,000 Med 07/08/19 18:06 Discontinued ml .ROUTE UD NaCl 0.9% 1000 ml [Sodium Chloride 0.9% 1000 ML] 1,000 Med 07/08/19 18:01 Discontinued ml IV 499 mls/hr NaCl 0.9% 1000 ml [Sodium Chloride 0.9% 1000 ML] 000 Med 07/08/19 23:00 Active ml IV 50 mls/hr Nystatin Cream 30 gm [Nystop 30 gm Cream] Med 07/09/19 10:00 Active 1 gm TP TID Ondansetron HCl 4 mg/2 ml [Zofran 4 MG/2 ML VIAL] Med 07/08/19 19:50 Active 4 mg IV Q6H PRN PRN PANTOPRAZOLE 40 mg Tablet [Protonix 40MG Tablet] Med 07/09/19 10:00 Active 40 mg PO DAILY Potassium Chloride 20Meq/100Ml [POTASSIUM CHLORIDE 20 Med 07/08/19 19:05 Discontinued mEq IN WATER 100ML] 20 meq in 100 ml IV STAT Potassium Chloride 20Meq/100Ml [POTASSIUM CHLORIDE 20 Med 07/08/19 21:22 Discontinued mEq IN WATER 100ML] 20 meq in 100 ml IV STAT Potassium Chloride 20Meq/100Ml [POTASSIUM CHLORIDE 20 Med 07/08/19 19:15 Discontinued mEq IN WATER 100ML] 100 ml IV UD Simvastatin 20Mg [Zocor 20Mg] Med 07/09/19 22:00 Active 40 mg PO HS Code(s): N39.0 - URINARY TRACT INFECTION, SITE NOT SPECIFIED (2) AMS (altered mental status) Current Visit: Yes Status: Acute Qualifiers: Altered mental status type: unspecified Qualified Code(s): R41.82 - Altered mental status, unspecified Code(s): R41.82 - ALTERED MENTAL STATUS, UNSPECIFIED (3) Amputee, above knee Current Visit: No Status: Acute Qualifiers: Code(s): Z89.619 - ACQUIRED ABSENCE OF UNSPECIFIED LEG ABOVE KNEE (4) Type 2 diabetes mellitus Current Visit: No Status: Chronic Qualifiers:
[2019-07-09] MEDS: Reglan 10 MG PO SCH ×2 (12:16→18:54)
[2019-07-09] MEDS ORDERED: ZOCOR 20MG PO SCH (22:00)
[2019-07-09] MEDS ORDERED: NON-FORMULARY ITEM (Simvastatin 40 Mg [Zocor 40 Mg] 40 MG) PO SCH (22:00)
[2019-07-10] MEDS: Sodium Chloride 0.9% 1000 ML 1,000 ML IV SCH (00:37)
[2019-07-10] MEDS: Reglan 10 MG PO SCH (07:53)
[2019-07-10] MEDS: SYNTHROID 125 MCG PO SCH (09:27)
[2019-07-10] MEDS: THERAGRAN MULTIVITAMIN PO SCH (09:27)
[2019-07-10] MEDS: Zestril 5 MG PO SCH (09:27)
[2019-07-10] MEDS: Protonix 40MG Tablet PO SCH (09:27)
[2019-07-10] MEDS: TENORMIN 50 MG PO SCH (09:30)
[2019-07-10] MEDS: Pepcid 20 MG VIAL IV SCH (09:34)
[2019-07-10] MEDS: LOPID 600 MG PO SCH (09:36)
[2019-07-10] MEDS: NYSTOP 30 GM CREAM TP SCH ×2 (09:36→15:39)
[2019-07-10] MEDS: ECOTRIN 81 MG PO SCH (09:39)
[2019-07-10] MEDS: ROCEPHIN 1 Gm-D5w 50 ml Bag** 1 G/50 ML IVPB IV SCH (09:43)
[2019-07-10 11:42] VITALS: BP 121/56; PULSE 82; O2SAT 100
[2019-07-10] MEDS: HUMALOG SQ PRN (11:42)
--- NOTE | 2019-07-10 14:32 | PCM.DS ---
Discharge Summary Date of Admission: 07/08/19 20:38 Admitting Physician: FELICIA LOPEZ Primary Care Provider: FELICIA LOPEZ Allergies Allergies Penicillins Allergy (Verified 07/08/19 18:03) Hospital Summary - Hospital Course Hospital Course: Chief Complaint Diagnosis altered mental status Allergies Allergy/AdvReac Type Severity Reaction Status Date / Time Penicillins Allergy Verified 07/08/19 18:03 Vital Signs (Last 24 hours) Temp Pulse Resp BP BP Pulse Ox 07/10/19 11:42 97.8 F 82 18 121/56 100 07/10/19 09:30 74 126/53 07/10/19 07:10 98.0 F 81 18 126/53 98 07/10/19 04:10 97.7 F 62 16 120/86 98 07/09/19 23:29 98.6 F 65 17 97/50 97 07/09/19 22:41 62 97/50 07/09/19 19:17 97.9 F 67 18 116/56 99 07/09/19 16:00 98.0 F 73 18 115/57 98 Home Medications Medication Instructions Recorded Confirmed Last Taken Type Ciprofloxacin [Cipro 500 MG] 500 mg PO BID 10 Days #20 tablet 07/10/19 Unknown Rx Current Medications Generic Name Dose Route Start Last Admin Trade Name Freq PRN Reason Stop Dose Admin Acetaminophen 650 mg 07/08/19 19:50 Tylenol 325 Mg PO 08/07/19 19:49 Q4H PRN PRN PAIN AND/OR FEVER Aspirin 81 mg 07/09/19 10:00 07/10/19 09:39 Ecotrin 81 Mg PO 08/08/19 09:59 81 mg DAILY CINTHIA Administration Atenolol 12.5 mg 07/09/19 10:00 07/10/19 09:30 Tenormin 50 Mg PO 08/08/19 09:59 12.5 mg BID CINTHIA Administration Docusate Sodium 100 mg 07/09/19 10:00 Colace 100 Mg PO 08/08/19 09:59 BID PRN PRN Famotidine 20 mg 07/08/19 22:00 07/10/19 09:34 Pepcid 20 Mg Vial IV 08/07/19 21:59 20 mg Q12HT CINTHIA Administration Gabapentin 300 mg 07/09/19 09:56 Neurontin 300 Mg PO 08/08/19 09:55 TID PRN PRN PAIN Gemfibrozil 600 mg 07/09/19 10:00 07/10/19 09:36 Lopid 600 Mg PO 08/08/19 09:59 600 mg DAILY CINTHIA Administration Sodium Chloride 1,000 mls @ 50 mls/hr 07/08/19 23:00 07/10/19 00:37 Sodium Chloride 0.9% 1000 Ml IV 08/07/19 22:59 50 mls/hr .Q20H CINTHIA Administration Ceftriaxone Sodium/Dextrose 1 g in 50 mls @ 100 mls/hr 07/09/19 10:00 09:43 Rocephin 1 Gm-D5w 50 Ml Bag IV 08/08/19 09:59 100 mls/hr Q24H10 CINTHIA Administration Insulin Human Lispro 0 unit 07/08/19 19:50 07/10/19 11:42 Humalog SQ 08/07/19 19:49 3 unit UD PRN Administration HYPERGLYCEMIA Levothyroxine Sodium 125 mcg 07/09/19 10:00 07/10/19 09:27 Synthroid 125 Mcg PO 08/08/19 09:59 125 mcg DAILY CINTHIA Administration Lisinopril 2.5 mg 07/09/19 10:00 07/10/19 09:27 Zestril 5 Mg PO 08/08/19 09:59 2.5 mg DAILY CINTHIA Administration Metoclopramide HCl 5 mg 07/09/19 10:00 07/10/19 07:53 Reglan 10 Mg PO 08/08/19 09:59 5 mg BIDAC CINTHIA Administration Multivitamins Therapeutic 1 tab 07/09/19 10:00 07/10/19 09:27 Theragran Multivitamin PO 08/08/19 09:59 1 tab DAILY CINTHIA Administration Nystatin 1 gm 07/09/19 10:00 07/10/19 09:36 Nystop 30 Gm Cream TP 08/08/19 09:59 1 gm TID CINTHIA Administration Ondansetron HCl 4 mg 07/08/19 19:50 Zofran 4 Mg/2 Ml Vial IV 08/07/19 19:49 Q6H PRN PRN NAUSEA/VOMITING Pantoprazole Sodium 40 mg 07/09/19 10:00 07/10/19 09:27 Protonix 40mg Tablet PO 08/08/19 09:59 40 mg DAILY CINTHIA Administration Simvastatin 40 mg 07/09/19 22:00 07/09/19 22:44 Zocor 20mg PO 08/08/19 21:59 40 mg HS CINTHIA Administration Discontinued Medications Generic Name Dose Route Start Last Admin Trade Name Freq PRN Reason Stop Dose Admin Sodium Chloride 1,000 mls @ 499 mls/hr 07/08/19 18:01 07/08/19 18:08 Sodium Chloride 0.9% 1000 Ml IV 07/08/19 20:01 499 mls/hr .Q2H1M STA Administration Sodium Chloride Confirm 07/08/19 18:06 Sodium Chloride 0.9% 1000 Ml Administered 07/08/19 18:07 Dose 1,000 mls @ ud .ROUTE .STK-MED ONE Potassium Chloride 20 meq in 100 mls @ 50 mls/hr 07/08/19 19:05 07/08/19 19: 18 Potassium Chloride 20 Meq In Water 100ml IV 07/08/19 21:04 50 mls/hr STAT ONE Administration Potassium Chloride Confirm 07/08/19 19:15 Potassium Chloride 20 Meq In Water 100ml Administered 07/08/19 19:16 Dose 100 mls @ ud IV .STK-MED ONE Levofloxacin/Dextrose 500 mg in 100 mls @ 100 mls/hr 07/08/19 19:48 07/08/19 21:28 Levofloxacin 500mg/100ml D5w IV 07/08/19 20:47 100 mls/hr STAT STA Administration Potassium Chloride 20 meq in 100 mls @ 50 mls/hr 07/08/19 21:22 07/08/19 21: 29 Potassium Chloride 20 Meq In Water 100ml IV 07/08/19 23:21 50 mls/hr STAT ONE Administration Intake & Output (Last 24 hours) 07/08/19 07/09/19 07/10/19 07/11/19 11:59 11:59 11:59 11:59 Intake Total 1741 2463 240 Output Total 700 975 Balance 1041 1488 240 Weight 65.7 kg Microbiology Results (Last 24 hours) 07/08/19 18:30 Catherized Urine Culture - Final Escherichia Coli 07/08/19 18:30 Blood Blood Culture Gram Stain - Pending 07/08/19 18:30 Blood Blood Culture - Preliminary NO GROWTH TO DATE 07/08/19 18:25 Blood Blood Culture Gram Stain - Pending 07/08/19 18:25 Blood Blood Culture - Preliminary NO GROWTH TO DATE Orders (Last 24 hours) Category Date Time Status Discharge Routine Discharge 07/10/19 Ordered Simvastatin 20Mg [Zocor 20Mg] Med 07/09/19 22:00 Active 40 mg PO HS Patient Care Notes (Last 24 hours) 07/10/19 12:12 Case Management Note by Allyson Martinez DC MED LIST AND INSTRUCTIONS FAXED TO [facility], CONFIRMATION RECEIVED Initialized on 07/10/19 12:12 - END OF NOTE 07/10/19 12:04 Case Management Note by Allyson Martinez NOTIFIED THAT PATIENT HAS ORDERS TO DC HOME TODAY Initialized on 07/10/19 12:04 - END OF NOTE - Vitals & Intake/Output Vital Signs: Vital Signs Temperature 97.8 F 07/10/19 11:42 Pulse Rate 82 07/10/19 11:42 Respiratory Rate 18 07/10/19 11:42 Blood Pressure 121/56 07/10/19 11:42 O2 Sat by Pulse Oximetry 100 07/10/19 11:42 Intake & Output: Intake & Output 07/08/19 07/09/19 07/10/19 07/11/19 11:59 11:59 11:59 11:59 Intake Total 1741 2463 240 Output Total 700 975 Balance 1041 1488 240 Weight 65.7 kg - Lab Result Diagrams: 07/09/19 04:25 07/09/19 04:25 Lab Results-Last 24 Hrs: Accuchecks Date 07/10/19 Date 07/09/19 Time 11:30 Time 16:30 Accucheck Value: 173 Accucheck Value: 106 Accucheck Value: 159 Accucheck Value: 98 Micro Results-Entire Visit: Microbiology 07/08/19 18:30 Urine Culture - Final Catherized Escherichia Coli 07/08/19 18:30 Blood Culture - Preliminary Blood NO GROWTH TO DATE 07/08/19 18:25 Blood Culture - Preliminary Blood NO GROWTH TO DATE Accuchecks Date 07/10/19 Date 07/09/19 Time 11:30 Time 16:30 Accucheck Value: 173 Accucheck Value: 106 Accucheck Value: 159 Accucheck Value: 98 - Radiology Exams Ordered Rad Exams-Entire Visit: Radiology Procedures Category Date Time Status CHEST 1 VIEW (PORTABLE) Stat Exams 07/08/19 18:38 Completed Discharge Exam General Appearance: no apparent distress, alert Neurologic Exam: alert, oriented x 3, cooperative, normal mood/affect, nml cerebellar function, sensation nml, No motor deficits Eye Exam: PERRL, EOMI, eyes nml inspection Ears, Nose, Throat Exam: normal ENT inspection, pharynx normal, moist mucous membranes Neck Exam: normal inspection, non-tender, supple, full range of motion Respiratory Exam: normal breath sounds, lungs clear, No respiratory distress Cardiovascular Exam: regular rate/rhythm, normal heart sounds Gastrointestinal/Abdomen Exam: soft, No tenderness, No mass Pelvic Exam: deferred Rectal Exam: deferred Back Exam: normal inspection, normal range of motion, No CVA tenderness, No vertebral tenderness Extremity Exam: normal inspection, normal range of motion Skin Exam: normal color, warm, dry Wound Assessment: Skin/Wound Assessment Wound/Incision Assessment Start: 07/09/19 18: 21 Text: Status: Active Freq: Q6H Protocol: Document 07/10/19 13:10 LM (Rec: 07/10/19 13:12 LM [id number]) Wound/Incision Assessment Left Buttock Wound Assessment Shift Assessment Wound Type Pressure Ulcer Wound Stage Stage II Drainage Amount None General Appearance Open to air Length (cm) (cm) 1 Width (cm) (cm) 0.5 Wound Bed Greatest Portion Red (Granulation) Surrounding Tissue Buena Comment 1 x 0.5 cm stage II on left buttock, pt repositioned, barrier cream applied. Final Diagnosis/Problem List - Final Discharge Diagnosis/Problem (1) Acute UTI (urinary tract infection) Current Visit: Yes Status: Acute Code(s): N39.0 - URINARY TRACT INFECTION, SITE NOT SPECIFIED (2) AMS (altered mental status) Current Visit: Yes Status: Resolved Code(s): R41.82 - ALTERED MENTAL STATUS , UNSPECIFIED (3) Amputee, above knee Current Visit: No Status: Acute Code(s): Z89.619 - ACQUIRED ABSENCE OF UNSPECIFIED LEG ABOVE KNEE (4) Type 2 diabetes mellitus Current Visit: No Status: Chronic - Discharge Discharge Date: 07/10/19 Disposition: Home, Self-Care Condition: Stable Prescriptions: New Ciprofloxacin [Cipro 500 MG] 500 mg PO BID 10 Days #20 tablet Continue Gemfibrozil 600 mg [Lopid 600 mg] 600 mg PO DAILY Atenolol 12.5 mg PO BID Simvastatin 40 mg [Zocor 40 mg] 40 mg PO HS Aspirin 81 mg PO DAILY Levothyroxine Sodium 125 mcg PO DAILY #30 tablet PANTOPRAZOLE 40 mg Tablet [Protonix 40MG Tablet] 40 mg PO DAILY #30 tab lisinopriL [Zestril] 2.5 mg PO DAILY Multivitamin [Multi-Vitamin Daily] 1 tab PO DAILY Gabapentin 300 mg PO TID PRN PRN PRN Reason: Pain Docusate Sodium 100 mg [Colace 100 MG] 100 mg PO BID Metoclopramide HCl [Reglan] 5 mg PO BID Nystatin Cream 30 gm [Nystop 30 gm Cream] 1 gm TP TID Instructions: Urinary Tract Infection, Adult (DC) Forms: Ambulance Transport Record, Discharge Instructions
== END 2019-07-10 16:15 | disposition home or self-care (01) ==
LOC: ED 17:41 → MED SURG 20:38
PROVIDERS: ADMIT General Practice; ATTEND General Practice
DX: N39.0 Urinary tract infection, site not specified (principal); L89.322 Pressure ulcer of left buttock, stage 2; R41.82 Altered mental status, unspecified; E11.9 Type 2 diabetes mellitus without complications; I10 Essential (primary) hypertension; E78.5 Hyperlipidemia, unspecified; E03.9 Hypothyroidism, unspecified; Z85.3 Personal history of malignant neoplasm of breast; Z89.512 Acquired absence of left leg below knee; Z79.899 Other long term (current) drug therapy
CPT/HCPCS: 36415; 51702; 80053; 81001; 82962; 83605; 84132; 85025; 87040; 87077; 87086; 87186; 93041; 93268; 96360; 96361; 96365; 99291; G0378; 36000; 71045; 99285; J0696; J1642; J1817; J1956; J3480; A9270-GY

== ENCOUNTER 2019-09-06 13:55 | Inpatient (IN) | payer MEDICARE ==
--- NOTE | 2019-09-06 14:29 | ERPHSYRPT ---
- History of Present Illness Time Seen by Provider: 09/06/19 13:58 Source: patient, EMS, other (Very poor historian) Exam Limitations: other (Poor historian) Patient Subjective Stated Complaint: "I fell out of bed two days ago and had some pain in my left hip. I don't have any pain right now and I have no complaints at all right now. My doctor must of called the ambulance to come get me. I didn't even know I was going to be coming to the hospital until they showed up." Triage Nursing Assessment: Pt presents to ER from home residence by [facility] ambulance crew. Pt has home health nurse that I'm assuming was in contact with pt's PCP Dr. Anna who requested pt be brought into hospital by ambulance for evaulation from fall and because of new productive cough. Pt seems to be alert and slightly disoriented. Pt skin is pink, warm, and dry. Pt's lung sounds sound wet, rales and crackles noted throughout bilaterally, more prominant in left side. Productive frequent cough noted with thick sputum. Pt denies chest pain. Pulses present x 3 extremities. 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 Pt abdomen is soft and non-tender. Pt is incont of urine, redness and swelling noted to vaginal region, noted no urine output upon cathertization. Kathleen cath to be placed. Pt had some left hip pain following a fall out of bed that occurred two days ago, currently in no pain. No obvious deformity noted. Pt is pleasant and communicable. States feels safe at home and lives with . Physician History: 74 yo wf from home s/p fall out of bed 2 days ago sent to ER for evaluation. Pt denies LOC/any joint-bone pain/No C-T-L spine ttp/chest pain/fever/N/V/D/dysuria /hematuria/STRAUSS/abdominal pain. Occurred: days ago (2 days ago) Reason for Fall: fell from height (Rolled out of bed) Injuries/Pain Location: no injury (Daughter stated by phone that pt complained of hip pain) Loss of Consciousness: no loss of consciousness Quality: other (Denies pain) Severity of Pain-Max: none Severity of Pain-Current: none Modifying Factors: Improves With: nothing Associated Symptoms (Fall): denies symptoms Allergies/Adverse Reactions: Penicillins Allergy (Verified 09/06/19 14:23) Home Medications: Aspirin 81 mg PO DAILY 11/10/13 [History] Atenolol 12.5 mg PO BID 11/10/13 [History] Gemfibrozil 600 mg [Lopid 600 mg] 600 mg PO DAILY 11/10/13 [History] Simvastatin 40 mg [Zocor 40 mg] 40 mg PO HS 11/10/13 [History] lisinopriL [Zestril] 2.5 mg PO DAILY 03/30/17 [History] Multivitamin [Multi-Vitamin Daily] 1 tab PO DAILY 08/11/17 [History] Docusate Sodium 100 mg [Colace 100 MG] 100 mg PO BID 05/13/19 [History] Metoclopramide HCl [Reglan] 5 mg PO DAILY 05/13/19 [History] Empagliflozin/Metformin HCl [Synjardy Xr 12.5-1,000 mg Tab] 1 tab PO DAILY 09/05 [History] Insulin Glargine [Lantus Insulin] 10 unit SQ QPM 09/06/19 [History] Hx Tetanus, Diphtheria Vaccination/Date Given: Yes Hx Influenza Vaccination/Date Given: Yes Hx Pneumococcal Vaccination/Date Given: Yes Immunizations Up to Date: Yes Travel Risk - International Travel Have you traveled outside of the country in past 3 weeks: No Have you or anyone close to you been diagnosed with or: No Do your reside in a community with a known COVID-19 case?: Yes If Yes where:: [facility] - Coronavirus Screening Has patient experienced Coronavirus symptoms: Yes Symptoms experienced: respiratory symptoms (i.e.Cought,shortness of breath) - Review of Systems Constitutional: No Symptoms Eyes: No Symptoms Ears, Nose, & Throat: No Symptoms Respiratory: No Symptoms Cardiac: No Symptoms Abdominal/Gastrointestinal: No Symptoms Genitourinary Symptoms: No Symptoms Musculoskeletal: No Symptoms Skin: No Symptoms Neurological: No Symptoms Psychological: No Symptoms Endocrine: No Symptoms Hematologic/Lymphatic: No Symptoms Immunological/Allergic: No Symptoms - Past Medical History Pertinent Past Medical History: Yes Neurological History: No Pertinent History ENT History: Glaucoma Cardiac History: No Pertinent History Respiratory History: No Pertinent History Endocrine Medical History: Diabetes Type II, Hypothyroidism Musculoskeletal History: Osteoarthritis GI Medical History: Other History: No Pertinent History Psycho-Social History: No Pertinent History Female Reproductive Disorders: Breast Cancer Other Medical History: HTN, IDDM, Hypothryoidism, Breast CA. Hiatal Hernia, Gastroparesis. - Past Surgical History Past Surgical History: Yes Neuro Surgical History: No Pertinent History Cardiac: No Pertinent History Respiratory: No Pertinent History Gastrointestinal: No Pertinent History Genitourinary: No Pertinent History Musculoskeletal: Amputation, Other Female Surgical History: Lumpectomy Other Surgical History: oral surgery - wisdom teeth. back surgery - disc removed - Social History Smoking Status: Never smoker How long have you smoked: few years Exposure to second hand smoke: No Drug Use: none Patient Lives Alone: No - Female History Hx Now: No - Nursing Vital Signs Nursing Vital Signs: Initial Vital Signs Temperature 97.9 F 09/06/19 13:55 Pulse Rate 68 09/06/19 13:55 Respiratory Rate 18 09/06/19 13:55 Blood Pressure 125/74 09/06/19 13:55 O2 Sat by Pulse Oximetry 98 09/06/19 13:55 Pain Scale Pain Intensity 0 - Thorndike Coma Score Best Eye Response (Thorndike): (4) open spontaneously Best Verbal Response (Thorndike): (5) oriented Best Motor Response (Tom): (6) obeys commands Tom Total: 15 - Physical Exam General Appearance: no apparent distress Head Injury: no evidence of injury Eye Exam: PERRL/EOMI, eyes nml inspection ENT Exam: airway nml Neck Exam: supple, trachea midline, full range of motion, No focal neuro deficit Respiratory/Chest Exam: rhonchi, wheezing (Wheezesw and rhonchi B w good air movement) Cardiovascular Exam: normal heart sounds, regular rate/rhythm, No murmur Gastrointestinal Exam: soft, normal bowel sounds, No tenderness, No distention Back Exam: normal inspection, normal range of motion, No CVA tenderness Extremity Exam: normal inspection Neurologic Exam: alert, oriented x 3, cooperative, vegetable loader II-XII nml as tested, normal mood/affect Skin Exam: normal color, warm, dry SpO2 Interpretation: normal SpO2: 98 O2 Delivery: Room Air - Course Nursing assessment & vital signs reviewed: Yes Ordered Tests: Active Orders 24 hr Category Date Time Status Kathleen [Catheter-[place] Kathleen] STAT Care 09/06/19 15:04 Active IV Insertion STAT Care 09/06/19 15:03 Active CHEST WITHOUT CONTRAST [CT] Stat Exams 09/06/19 14:09 Completed PELVIS WITHOUT CONTRAST [CT] Stat Exams 09/06/19 14:09 Completed CBC W DIFF Stat Lab 09/06/19 15:00 Completed CMP Stat Lab 09/06/19 15:00 Completed CULTURE,URINE Stat Lab 09/06/19 15:00 Received Lactic Acid Stat Lab 09/06/19 14:58 Completed Manual Differential NC Stat Lab 09/06/19 15:00 Completed TROPONIN Q3H Lab 09/06/19 15:00 Received TROPONIN Q3H Lab 09/06/19 17:15 Ordered TROPONIN Q3H Lab 09/06/19 20:15 Ordered TROPONIN Q3H Lab 09/06/19 23:15 Ordered UA W/RFX UR CULTURE Stat Lab 09/06/19 15:00 Completed Lab/Rad Data: Laboratory Result Diagrams 09/06/19 15:00 09/06/19 15:00 Laboratory Results 09/06/19 09/06/19 09/06/19 Range/Units 15:00 15:00 15:00 WBC 12.9 H (4.0-10.5) K/mm3 RBC 4.04 L (4.1-5.4) M/mm3 Hgb 11.2 L (12.0-16.0) gm/dl Hct 36.4 (35-47) % MCV 90.1 (78-100) fl MCH 27.7 (26-32) pg MCHC 30.8 L (32-36) g/dl RDW 16.6 H (11.5-14.0) % Plt Count 283 (150-450) K/mm3 MPV 9.5 (7.5-11.0) fl Sodium 139 (137-145) mmol/L Potassium 3.6 (3.5-5.1) mmol/L Chloride 109 H (98-107) mmol/L Carbon Dioxide 19 L (22-30) mmol/L Anion Gap 14.8 (5-15) MEQ/L BUN 41 H (7-17) mg/dL Creatinine 1.20 H (0.52-1.04) mg/dL Estimated GFR 46.2 ML/MIN Glucose 158 H (74-106) mg/dL Lactic Acid (0.4-2.0) Calcium 9.6 (8.4-10.2) mg/dL Total Bilirubin 0.40 (0.2-1.3) mg/dL AST 30 (14-36) U/L ALT 18 (0-35) U/L Alkaline Phosphatase 77 (38-126) U/L Serum Total Protein 7.2 (6.3-8.2) g/dL Albumin 3.7 (3.5-5.0) g/dL Urine Color YELLOW (YELLOW) Urine Appearance CLOUDY (CLEAR) Urine pH 5.0 (5-6) Ur Specific [place] 1.015 (1.005-1.025) Urine Protein 30 (Negative) Urine Ketones NEGATIVE (NEGATIVE) Urine Blood MODERATE (0-5) Ross/ul Urine Nitrite NEGATIVE (NEGATIVE) Urine Bilirubin NEGATIVE (NEGATIVE) Urine Urobilinogen NEGATIVE (0-1) mg/dL Ur Leukocyte Esterase MODERATE (NEGATIVE) Urine WBC (Auto) 51-100 (0-5) /HPF Urine RBC (Auto) 3-5 (0-2) /HPF U Epithel Cells (Auto) NONE (FEW) /HPF Urine Bacteria (Auto) FEW (NEGATIVE) /HPF Urine Mucus (Auto) SLIGHT (NEGATIVE) /HPF Urine Culture Reflexed YES (NO) Urine Glucose >=500 (NEGATIVE) mg/dL 09/06/19 Range/Units 14:58 WBC (4.0-10.5) K/mm3 RBC (4.1-5.4) M/mm3 Hgb (12.0-16.0) gm/dl Hct (35-47) % MCV (78-100) fl MCH (26-32) pg MCHC (32-36) g/dl RDW (11.5-14.0) % Plt Count (150-450) K/mm3 MPV (7.5-11.0) fl Sodium (137-145) mmol/L Potassium (3.5-5.1) mmol/L Chloride (98-107) mmol/L Carbon Dioxide (22-30) mmol/L Anion Gap (5-15) MEQ/L BUN (7-17) mg/dL Creatinine (0.52-1.04) mg/dL Estimated GFR ML/MIN Glucose (74-106) mg/dL Lactic Acid 1.3 (0.4-2.0) Calcium (8.4-10.2) mg/dL Total Bilirubin (0.2-1.3) mg/dL AST (14-36) U/L ALT (0-35) U/L Alkaline Phosphatase (38-126) U/L Serum Total Protein (6.3-8.2) g/dL Albumin (3.5-5.0) g/dL Urine Color (YELLOW) Urine Appearance (CLEAR) Urine pH (5-6) Ur Specific [place] (1.005-1.025) Urine Protein (Negative) Urine Ketones (NEGATIVE) Urine Blood (0-5) Ross/ul Urine Nitrite (NEGATIVE) Urine Bilirubin (NEGATIVE) Urine Urobilinogen (0-1) mg/dL Ur Leukocyte Esterase (NEGATIVE) Urine WBC (Auto) (0-5) /HPF Urine RBC (Auto) (0-2) /HPF U Epithel Cells (Auto) (FEW) /HPF Urine Bacteria (Auto) (NEGATIVE) /HPF Urine Mucus (Auto) (NEGATIVE) /HPF Urine Culture Reflexed (NO) Urine Glucose (NEGATIVE) mg/dL - Progress Progress: unchanged Progress Note: 09/06/19 15:[address] Cabral/wants to start rocephin Discussed with : Desean Will see patient in: hospital (observation) Counseled pt/family regarding: lab results - Departure Departure Disposition: Observation Clinical Impression: Acute UTI (urinary tract infection) Condition: Stable Critical Care Time: No Referrals: FELICIA LOPEZ MD [Primary Care Provider] -
--- NOTE | 2019-09-06 14:57 | XRAY ---
Indication: Cough. History of breast cancer. Multiple contiguous axial images obtained through the chest without contrast as ordered. Comparison: None Lungs demonstrate minimal bibasilar and right apical fibrosis/scarring. No suspicious pulmonary mass, infiltrate, or effusion. Heart is not enlarged with incidental mitral valve calcifications. Aorta is minimally calcified without aneurysm. Left-sided Port-A-Cath. Tiny mediastinal and right hilar calcified nodes. No pathologic mediastinal lymphadenopathy. Bony thorax shows mild osteopenia and mild degenerative changes throughout the spine. No suspicious bony lesions. Limited upper abdomen demonstrates previous CT proven 1.8 cm gallstone. Impression: 1. Minimal fibrosis/scarring, mitral valve calcifications, calcified granulomas, gallstone, and chronic bony findings. 2. Remaining CT chest without contrast exam is negative.
--- NOTE | 2019-09-06 15:03 | XRAY ---
Indication: Left hip pain following fall. Multiple contiguous axial images obtained through the pelvis with special attention to the osseous structures. Comparison: May 12, 2019. Osseous structures remain demineralized consistent with patient's age. Stable degenerative spondylosis of the visualized lower lumbar spine, grade 1 L4 spondylolisthesis, and mild degenerative changes both hips. No acute fracture, dislocation, or suspicious bony lesions. Stable calcified uterine fibroids and heavy scattered vascular calcifications. New Kathleen catheter empties the urinary bladder. Remaining visualized noncontrasted soft tissues are unremarkable. Impression: 1. Negative acute fracture/dislocation. 2. Stable calcified uterine fibroids, vascular calcifications, osteopenia, lower lumbar degenerative spondylosis, grade 1 L4 spondylolisthesis, and bilateral hip degenerative arthropathy.
[2019-09-06 15:08] LABS: Hematocrit 36.4 % (35-47); Hemoglobin 11.2 gm/dl (12.0-16.0); Mean Cell Volume 90.1 fl (78-100); Mean Corpuscular Hemoglobin 27.7 pg (26-32); Mean Corpuscular Hgb Concent. 30.8 g/dl (32-36); Mean Platelet Volume 9.5 fl (7.5-11.0); Platelet Count 283 K/mm3 (150-450); Red Blood Count 4.04 M/mm3 (4.1-5.4); Red Cell Distribution Width 16.6 % (11.5-14.0); White Blood Count 12.9 K/mm3 (4.0-10.5)
[2019-09-06 15:12] LABS: Appearance CLOUDY (CLEAR); Bacteria FEW /HPF (NEGATIVE); Bilirubin NEGATIVE (NEGATIVE); Blood MODERATE Ery/ul (0-5); Glucose >=500 mg/dL (NEGATIVE); Ketones NEGATIVE (NEGATIVE); Leukocyte Esterase MODERATE (NEGATIVE); Mucus SLIGHT /HPF (NEGATIVE); Nitrite NEGATIVE (NEGATIVE); Protein,Urine Dip 30 (Negative); Specific Gravity 1.015 (1.005-1.025); Urobilinogen NEGATIVE mg/dL (0-1); WBC 51-100 /HPF (0-5)
[2019-09-06 15:25] LABS: ALBUMIN 3.7 g/dL (3.5-5.0); ANION GAP 14.8 MEQ/L (5-15); BILIRUBIN,TOTAL 0.4 mg/dL (0.2-1.3); Calcium 9.6 mg/dL (8.4-10.2); Creatinine 1 1.2 mg/dL (0.52-1.04); Potassium 3.6 mmol/L (3.5-5.1); Total Protein 7.2 g/dL (6.3-8.2)
[2019-09-06 15:42] LABS: INFLUENZA A NEGATIVE (NEGATIVE); INFLUENZA B NEGATIVE (NEGATIVE); RESPIRATORY SYNCTIAL VIRUS NEGATIVE (Negative)
[2019-09-06] MEDS ORDERED: ROCEPHIN 1 Gm-D5w 50 ml Bag** 1 G/50 ML IVPB IV STA (15:44)
[2019-09-06] MEDS ORDERED: ROCEPHIN 1 Gm-D5w 50 ml Bag** 1 G/50 ML IVPB IV ONE (15:47)
[2019-09-06 15:49] LABS: BAND 4 % (0.0-2.0); Basophil 1 % (0.0-1.0); Eosinophil 5 % (0.00-3.0); Lymphocytes 33 % (24-44); Monocyte 6 % (0.0-12.0); Neutrophils 51 % (36.0-66.0); Nucleated Red Blood Cell 1 %; Total Cells Counted 100
[2019-09-06 15:50] LABS: Platelet Estimate NORMAL (NORMAL); Polychromasia 1+
[2019-09-06] MEDS ORDERED: Sodium Chloride 0.9% 1000 ML 1,000 ML ONE (16:05)
[2019-09-06] MEDS: Sodium Chloride 0.9% 1000 ML 1,000 ML IV SCH ×2 (16:07→23:37)
[2019-09-06] MEDS ORDERED: Sodium Chloride 0.9% 500 ML 500 ML IV ONE (17:57)
[2019-09-06] MEDS: TENORMIN 50 MG PO SCH (22:10)
[2019-09-06] MEDS: Colace 100 MG PO SCH (22:13)
[2019-09-06] MEDS: Reglan 10 MG PO SCH (22:13)
[2019-09-06] MEDS: Lantus Insulin SQ SCH (22:14)
[2019-09-06] MEDS: ZOCOR 20MG PO SCH (22:14)
[2019-09-07 06:30] LABS: Hematocrit 35.4 % (35-47); Hemoglobin 11.4 gm/dl (12.0-16.0); Mean Cell Volume 88.1 fl (78-100); Mean Corpuscular Hemoglobin 28.4 pg (26-32); Mean Corpuscular Hgb Concent. 32.2 g/dl (32-36); Mean Platelet Volume 9.4 fl (7.5-11.0); Platelet Count 303 K/mm3 (150-450); Red Blood Count 4.02 M/mm3 (4.1-5.4); Red Cell Distribution Width 16.2 % (11.5-14.0); White Blood Count 13.1 K/mm3 (4.0-10.5)
[2019-09-07 06:54] LABS: ALBUMIN 3.4 g/dL (3.5-5.0); ALKALINE PHOSPHATASE 68 U/L (38-126); ANION GAP 13.1 MEQ/L (5-15); BLOOD UREA NITROGEN 27 mg/dL (7-17); CHLORIDE 115 mmol/L (98-107); Carbon Dioxide 17 mmol/L (22-30); Creatinine 1 0.78 mg/dL (0.52-1.04); Glucose 118 mg/dL (74-106); Potassium 3.7 mmol/L (3.5-5.1); SGOT/AST 31 U/L (14-36); SGPT/ALT 18 U/L (0-35); SODIUM 141 mmol/L (137-145); Total Protein 6.7 g/dL (6.3-8.2)
[2019-09-07] MEDS ORDERED: MEDICATION INTERVENTION MC SCH (08:30)
[2019-09-07] MEDS: ECOTRIN 81 MG PO SCH (09:21)
[2019-09-07] MEDS: TENORMIN 50 MG PO SCH ×2 (09:22→21:07)
[2019-09-07] MEDS: THERAGRAN MULTIVITAMIN PO SCH (09:22)
[2019-09-07] MEDS: SYNTHROID 125 MCG PO SCH (09:22)
[2019-09-07] MEDS: Protonix 40MG Tablet PO SCH (09:26)
[2019-09-07] MEDS: Zestril 5 MG PO SCH (09:29)
[2019-09-07] MEDS: LOPID 600 MG PO SCH (09:29)
[2019-09-07 09:32] LABS: ANISOCYTOSIS 1+; BAND 3 % (0.0-2.0); Eosinophil 3 % (0.00-3.0); Lymphocytes 29 % (24-44); Monocyte 1 % (0.0-12.0); Neutrophils 64 % (36.0-66.0); Total Cells Counted 100; Toxic Granulation 1+
[2019-09-07 09:33] LABS: Platelet Estimate NORMAL (NORMAL)
[2019-09-07] MEDS ORDERED: NON-FORMULARY ITEM (Aspirin [Aspirin] 81 MG) PO SCH (10:00)
[2019-09-07] MEDS ORDERED: METFORMIN HCL PO SCH (10:00)
[2019-09-07] MEDS ORDERED: NON-FORMULARY ITEM (Multivitamin [Multi-Vitamin Daily] 1 TAB) PO SCH (10:00)
[2019-09-07] MEDS ORDERED: EMPAGLIFLOZIN PO SCH (10:00)
[2019-09-07] MEDS: Colace 100 MG PO SCH ×2 (10:46→21:07)
[2019-09-07] MEDS: ROCEPHIN 1 Gm-D5w 50 ml Bag** 1 G/50 ML IVPB IV SCH (10:46)
--- NOTE | 2019-09-07 12:49 | PCM.HP ---
History of Present Illness - Chief Complaint Chief Complaint: UTI, Dehydration, dementia History of Present Illness: is a 79 year old female pt of Dr. Solorzano with diabetes, dementia, HTN , glaucoma, breast c, and gastroparesis who fell at home; Dr. Solorzano instructed [facility] to have pt go to ER, where she was found to have UTI and dehydration. Pt had no complaints. BUN and Cr were 41 and 1.2, which were above normal for her. She was admitted on IV rocephin and IV fluids. This morning she is pleasantly confused as to place, although she knows it is 2019 (but not the month). She is getting ready to eat her [facility] lunch but is very agreeable to advancing her diet. - Review of Systems All Other Systems: Unable due to dementia Medications & Allergies Home Medications: Home Medication List Aspirin 81 mg PO DAILY 11/10/13 [History Confirmed 09/06/19] Atenolol 12.5 mg PO BID 11/10/13 [History Confirmed 09/06/19] Gemfibrozil 600 mg [Lopid 600 mg] 600 mg PO DAILY 11/10/13 [History Confirmed 09/06/19] Simvastatin 40 mg [Zocor 40 mg] 40 mg PO HS 11/10/13 [History Confirmed 09/06/19 ] Levothyroxine Sodium 125 mcg PO DAILY #30 tablet 11/14/13 [Rx Confirmed 09/06/19 ] PANTOPRAZOLE 40 mg Tablet [Protonix 40MG Tablet] 40 mg PO DAILY #30 tab [Rx Confirmed 09/06/19] lisinopriL [Zestril] 2.5 mg PO DAILY 03/30/17 [History Confirmed 09/06/19] Multivitamin [Multi-Vitamin Daily] 1 tab PO DAILY 08/11/17 [History Confirmed ] Docusate Sodium 100 mg [Colace 100 MG] 100 mg PO BID 05/13/19 [History Confirmed 09/06/19] Metoclopramide HCl [Reglan] 5 mg PO HS 05/13/19 [History Confirmed 09/06/19] Empagliflozin/Metformin HCl [Synjardy Xr 12.5-1,000 mg Tab] 1 tab PO DAILY 09/05 [History Confirmed 09/06/19] Insulin Aspart [Novolog] 1 unit SQ UD 09/06/19 [History Confirmed 09/06/19] Insulin Glargine [Lantus Insulin] 10 unit SQ QPM 09/06/19 [History Confirmed 09/06/19] Allergies/Adverse Reactions: Allergies Allergy/AdvReac Type Severity Reaction Status Date / Time Penicillins Allergy Verified 09/06/19 14:23 - Past Medical History Past Medical History: Yes Neurological History: No Pertinent History ENT History: Glaucoma Cardiac History: No Pertinent History Respiratory History: No Pertinent History Endocrine Medical History: Diabetes Type II, Hypothyroidism Musculoskelatal History: Osteoarthritis GI Medical History: Other History: No Pertinent History Pyscho-Social History: No Pertinent History Reproductive Disorders: Breast Cancer Comment: HTN, IDDM, Hypothryoidism, Breast CA. Hiatal Hernia, Gastroparesis. - Female History Are you now?: No - Past Surgical History Past Surgical History: Yes Neuro Surgical History: No Pertinent History Cardiac History: No Pertinent History Respiratory Surgery: No Pertinent History GI Surgical History: No Pertinent History Genitourinary Surgical Hx: No Pertinent History Musculskeletal Surgical Hx: Amputation, Other Female Surgical History: Lumpectomy Other Surgical History: oral surgery - wisdom teeth. back surgery - disc removed - Social History Smoking Status: Former smoker How long have you smoked: few years Exposure to second hand smoke: No Alcohol: None Drug Use: none - Physical Exam Vital Signs: Vital Signs - 24 hr Temp Pulse Resp BP BP Pulse Ox 09/07/19 11:55 98.3 F 73 18 107/53 96 09/07/19 09:22 80 120/78 09/07/19 08:00 98.4 F 80 16 120/78 96 09/07/19 04:00 98.2 F 78 18 140/69 98 09/07/19 00:00 98.2 F 80 16 122/61 97 09/06/19 22:10 84 121/60 09/06/19 20:00 98.5 F 84 18 121/60 97 09/06/19 17:04 97.6 F 52 L 20 106/51 97 09/06/19 16:55 98.1 F 52 L 22 106/51 97 09/06/19 15:54 98 09/06/19 15:50 98 09/06/19 15:06 76 16 118/69 98 09/06/19 14:59 70 19 125/74 99 09/06/19 13:55 97.9 F 68 18 98 General Appearance: no apparent distress, alert Neurologic Exam: cooperative, disoriented Eye Exam: eyes nml inspection Ears, Nose, Throat Exam: moist mucous membranes Neck Exam: normal inspection Respiratory Exam: normal breath sounds, lungs clear, No crackles/rales, No rhonchi, No wheezing Cardiovascular Exam: regular rate/rhythm, normal heart sounds, No murmur Gastrointestinal/Abdomen Exam: soft, normal bowel sounds, No tenderness, No distention, No mass, No guarding, No rebound Extremity Exam: normal inspection, No pedal edema, No swelling Skin Exam: normal color, warm, dry, No rash Results - Labs Lab/Micro Results: Accuchecks Date 09/07/19 Time 07:30 Accucheck Value: 112 Lab Results-Last 24 Hours 09/06/19 09/06/19 09/06/19 Range/Units 14:45 14:58 15:00 WBC 12.9 H (4.0-10.5) K/mm3 RBC 4.04 L (4.1-5.4) M/mm3 Hgb 11.2 L (12.0-16.0) gm/dl Hct 36.4 (35-47) % MCV 90.1 (78-100) fl MCH 27.7 (26-32) pg MCHC 30.8 L (32-36) g/dl RDW 16.6 H (11.5-14.0) % Plt Count 283 (150-450) K/mm3 MPV 9.5 (7.5-11.0) fl Segmented Neutrophils 51 (36.0-66.0) % Band Neutrophils 4 H (0.0-2.0) % Lymphocytes (Manual) 33 (24-44) % Monocytes (Manual) 6 (0.0-12.0) % Eosinophils (Manual) 5 H (0.00-3.0) % Basophils (Manual) 1 (0.0-1.0) % Nucleated RBCs 1 % Toxic Granulation Platelet Estimate NORMAL (NORMAL) RBC Morphology ABNORMAL Polychromasia 1+ Anisocytosis Sodium (137-145) mmol/L Potassium (3.5-5.1) mmol/L Chloride (98-107) mmol/L Carbon Dioxide (22-30) mmol/L Anion Gap (5-15) MEQ/L BUN (7-17) mg/dL Creatinine (0.52-1.04) mg/dL Estimated GFR ML/MIN Glucose (74-106) mg/dL Hemoglobin A1c (4.5-6.0) % Lactic Acid 1.3 (0.4-2.0) Calcium (8.4-10.2) mg/dL Total Bilirubin (0.2-1.3) mg/dL AST (14-36) U/L ALT (0-35) U/L Alkaline Phosphatase (38-126) U/L Troponin I (0.000-0.034) ng/mL Serum Total Protein (6.3-8.2) g/dL Albumin (3.5-5.0) g/dL Prealbumin (17.6-36.0) mg/dL Urine Color (YELLOW) Urine Appearance (CLEAR) Urine pH (5-6) Ur Specific [place] (1.005-1.025) Urine Protein (Negative) Urine Ketones (NEGATIVE) Urine Blood (0-5) Ross/ul Urine Nitrite (NEGATIVE) Urine Bilirubin (NEGATIVE) Urine Urobilinogen (0-1) mg/dL Ur Leukocyte Esterase (NEGATIVE) Urine WBC (Auto) (0-5) /HPF Urine RBC (Auto) (0-2) /HPF U Epithel Cells (Auto) (FEW) /HPF Urine Bacteria (Auto) (NEGATIVE) /HPF Urine Mucus (Auto) (NEGATIVE) /HPF Urine Culture Reflexed (NO) Urine Glucose (NEGATIVE) mg/dL Influenza Type A Ag NEGATIVE (NEGATIVE) Influenza Type B Ag NEGATIVE (NEGATIVE) RSV (PCR) NEGATIVE (Negative) 09/06/19 09/06/19 09/06/19 Range/Units 15:00 15:00 15:00 WBC (4.0-10.5) K/mm3 RBC (4.1-5.4) M/mm3 Hgb (12.0-16.0) gm/dl Hct (35-47) % MCV (78-100) fl MCH (26-32) pg MCHC (32-36) g/dl RDW (11.5-14.0) % Plt Count (150-450) K/mm3 MPV (7.5-11.0) fl Segmented Neutrophils (36.0-66.0) % Band Neutrophils (0.0-2.0) % Lymphocytes (Manual) (24-44) % Monocytes (Manual) (0.0-12.0) % Eosinophils (Manual) (0.00-3.0) % Basophils (Manual) (0.0-1.0) % Nucleated RBCs % Toxic Granulation Platelet Estimate (NORMAL) RBC Morphology Polychromasia Anisocytosis Sodium 139 (137-145) mmol/L Potassium 3.6 (3.5-5.1) mmol/L Chloride 109 H (98-107) mmol/L Carbon Dioxide 19 L (22-30) mmol/L Anion Gap 14.8 (5-15) MEQ/L BUN 41 H (7-17) mg/dL Creatinine 1.20 H (0.52-1.04) mg/dL Estimated GFR 46.2 ML/MIN Glucose 158 H (74-106) mg/dL Hemoglobin A1c (4.5-6.0) % Lactic Acid (0.4-2.0) Calcium 9.6 (8.4-10.2) mg/dL Total Bilirubin 0.40 (0.2-1.3) mg/dL AST 30 (14-36) U/L ALT 18 (0-35) U/L Alkaline Phosphatase 77 (38-126) U/L Troponin I < 0.012 (0.000-0.034) ng/mL Serum Total Protein 7.2 (6.3-8.2) g/dL Albumin 3.7 (3.5-5.0) g/dL Prealbumin (17.6-36.0) mg/dL Urine Color YELLOW (YELLOW) Urine Appearance CLOUDY (CLEAR) Urine pH 5.0 (5-6) Ur Specific [place] 1.015 (1.005-1.025) Urine Protein 30 (Negative) Urine Ketones NEGATIVE (NEGATIVE) Urine Blood MODERATE (0-5) Ross/ul Urine Nitrite NEGATIVE (NEGATIVE) Urine Bilirubin NEGATIVE (NEGATIVE) Urine Urobilinogen NEGATIVE (0-1) mg/dL Ur Leukocyte Esterase MODERATE (NEGATIVE) Urine WBC (Auto) 51-100 (0-5) /HPF Urine RBC (Auto) 3-5 (0-2) /HPF U Epithel Cells (Auto) NONE (FEW) /HPF Urine Bacteria (Auto) FEW (NEGATIVE) /HPF Urine Mucus (Auto) SLIGHT (NEGATIVE) /HPF Urine Culture Reflexed YES (NO) Urine Glucose >=500 (NEGATIVE) mg/dL Influenza Type A Ag (NEGATIVE) Influenza Type B Ag (NEGATIVE) RSV (PCR) (Negative) 09/06/19 09/06/19 09/06/19 Range/Units 15:00 15:00 17:49 WBC (4.0-10.5) K/mm3 RBC (4.1-5.4) M/mm3 Hgb (12.0-16.0) gm/dl Hct (35-47) % MCV (78-100) fl MCH (26-32) pg MCHC (32-36) g/dl RDW (11.5-14.0) % Plt Count (150-450) K/mm3 MPV (7.5-11.0) fl Segmented Neutrophils (36.0-66.0) % Band Neutrophils (0.0-2.0) % Lymphocytes (Manual) (24-44) % Monocytes (Manual) (0.0-12.0) % Eosinophils (Manual) (0.00-3.0) % Basophils (Manual) (0.0-1.0) % Nucleated RBCs % Toxic Granulation Platelet Estimate (NORMAL) RBC Morphology Polychromasia Anisocytosis Sodium (137-145) mmol/L Potassium (3.5-5.1) mmol/L Chloride (98-107) mmol/L Carbon Dioxide (22-30) mmol/L Anion Gap (5-15) MEQ/L BUN (7-17) mg/dL Creatinine (0.52-1.04) mg/dL Estimated GFR ML/MIN Glucose (74-106) mg/dL Hemoglobin A1c 8.42 H (4.5-6.0) % Lactic Acid (0.4-2.0) Calcium (8.4-10.2) mg/dL Total Bilirubin (0.2-1.3) mg/dL AST (14-36) U/L ALT (0-35) U/L Alkaline Phosphatase (38-126) U/L Troponin I < 0.012 (0.000-0.034) ng/mL Serum Total Protein (6.3-8.2) g/dL Albumin (3.5-5.0) g/dL Prealbumin 13.00 L (17.6-36.0) mg/dL Urine Color (YELLOW) Urine Appearance (CLEAR) Urine pH (5-6) Ur Specific [place] (1.005-1.025) Urine Protein (Negative) Urine Ketones (NEGATIVE) Urine Blood (0-5) Ross/ul Urine Nitrite (NEGATIVE) Urine Bilirubin (NEGATIVE) Urine Urobilinogen (0-1) mg/dL Ur Leukocyte Esterase (NEGATIVE) Urine WBC (Auto) (0-5) /HPF Urine RBC (Auto) (0-2) /HPF U Epithel Cells (Auto) (FEW) /HPF Urine Bacteria (Auto) (NEGATIVE) /HPF Urine Mucus (Auto) (NEGATIVE) /HPF Urine Culture Reflexed (NO) Urine Glucose (NEGATIVE) mg/dL Influenza Type A Ag (NEGATIVE) Influenza Type B Ag (NEGATIVE) RSV (PCR) (Negative) 09/06/19 09/06/19 09/07/19 Range/Units 20:50 23:15 06:25 WBC (4.0-10.5) K/mm3 RBC (4.1-5.4) M/mm3 Hgb (12.0-16.0) gm/dl Hct (35-47) % MCV (78-100) fl MCH (26-32) pg MCHC (32-36) g/dl RDW (11.5-14.0) % Plt Count (150-450) K/mm3 MPV (7.5-11.0) fl Segmented Neutrophils (36.0-66.0) % Band Neutrophils (0.0-2.0) % Lymphocytes (Manual) (24-44) % Monocytes (Manual) (0.0-12.0) % Eosinophils (Manual) (0.00-3.0) % Basophils (Manual) (0.0-1.0) % Nucleated RBCs % Toxic Granulation Platelet Estimate (NORMAL) RBC Morphology Polychromasia Anisocytosis Sodium 141 (137-145) mmol/L Potassium 3.7 (3.5-5.1) mmol/L Chloride 115 H (98-107) mmol/L Carbon Dioxide 17 L (22-30) mmol/L Anion Gap 13.1 (5-15) MEQ/L BUN 27 H (7-17) mg/dL Creatinine 0.78 (0.52-1.04) mg/dL Estimated GFR > 60.0 ML/MIN Glucose 118 H (74-106) mg/dL Hemoglobin A1c (4.5-6.0) % Lactic Acid (0.4-2.0) Calcium 9.0 (8.4-10.2) mg/dL Total Bilirubin 0.40 (0.2-1.3) mg/dL AST 31 (14-36) U/L ALT 18 (0-35) U/L Alkaline Phosphatase 68 (38-126) U/L Troponin I < 0.012 < 0.012 (0.000-0.034) ng/mL Serum Total Protein 6.7 (6.3-8.2) g/dL Albumin 3.4 L (3.5-5.0) g/dL Prealbumin (17.6-36.0) mg/dL Urine Color (YELLOW) Urine Appearance (CLEAR) Urine pH (5-6) Ur Specific [place] (1.005-1.025) Urine Protein (Negative) Urine Ketones (NEGATIVE) Urine Blood (0-5) Ross/ul Urine Nitrite (NEGATIVE) Urine Bilirubin (NEGATIVE) Urine Urobilinogen (0-1) mg/dL Ur Leukocyte Esterase (NEGATIVE) Urine WBC (Auto) (0-5) /HPF Urine RBC (Auto) (0-2) /HPF U Epithel Cells (Auto) (FEW) /HPF Urine Bacteria (Auto) (NEGATIVE) /HPF Urine Mucus (Auto) (NEGATIVE) /HPF Urine Culture Reflexed (NO) Urine Glucose (NEGATIVE) mg/dL Influenza Type A Ag (NEGATIVE) Influenza Type B Ag (NEGATIVE) RSV (PCR) (Negative) 09/07/19 Range/Units 06:25 WBC 13.1 H (4.0-10.5) K/mm3 RBC 4.02 L (4.1-5.4) M/mm3 Hgb 11.4 L (12.0-16.0) gm/dl Hct 35.4 (35-47) % MCV 88.1 (78-100) fl MCH 28.4 (26-32) pg MCHC 32.2 (32-36) g/dl RDW 16.2 H (11.5-14.0) % Plt Count 303 (150-450) K/mm3 MPV 9.4 (7.5-11.0) fl Segmented Neutrophils 64 (36.0-66.0) % Band Neutrophils 3 H (0.0-2.0) % Lymphocytes (Manual) 29 (24-44) % Monocytes (Manual) 1 (0.0-12.0) % Eosinophils (Manual) 3 (0.00-3.0) % Basophils (Manual) (0.0-1.0) % Nucleated RBCs % Toxic Granulation 1+ Platelet Estimate NORMAL (NORMAL) RBC Morphology ABNORMAL Polychromasia Anisocytosis 1+ Sodium (137-145) mmol/L Potassium (3.5-5.1) mmol/L Chloride (98-107) mmol/L Carbon Dioxide (22-30) mmol/L Anion Gap (5-15) MEQ/L BUN (7-17) mg/dL Creatinine (0.52-1.04) mg/dL Estimated GFR ML/MIN Glucose (74-106) mg/dL Hemoglobin A1c (4.5-6.0) % Lactic Acid (0.4-2.0) Calcium (8.4-10.2) mg/dL Total Bilirubin (0.2-1.3) mg/dL AST (14-36) U/L ALT (0-35) U/L Alkaline Phosphatase (38-126) U/L Troponin I (0.000-0.034) ng/mL Serum Total Protein (6.3-8.2) g/dL Albumin (3.5-5.0) g/dL Prealbumin (17.6-36.0) mg/dL Urine Color (YELLOW) Urine Appearance (CLEAR) Urine pH (5-6) Ur Specific [place] (1.005-1.025) Urine Protein (Negative) Urine Ketones (NEGATIVE) Urine Blood (0-5) Ross/ul Urine Nitrite (NEGATIVE) Urine Bilirubin (NEGATIVE) Urine Urobilinogen (0-1) mg/dL Ur Leukocyte Esterase (NEGATIVE) Urine WBC (Auto) (0-5) /HPF Urine RBC (Auto) (0-2) /HPF U Epithel Cells (Auto) (FEW) /HPF Urine Bacteria (Auto) (NEGATIVE) /HPF Urine Mucus (Auto) (NEGATIVE) /HPF Urine Culture Reflexed (NO) Urine Glucose (NEGATIVE) mg/dL Influenza Type A Ag (NEGATIVE) Influenza Type B Ag (NEGATIVE) RSV (PCR) (Negative) Accuchecks Date 09/07/19 Time 07:30 Accucheck Value: 112 - Radiology Impressions Radiology Exams & Impressions: Radiology Procedures Category Date Time Status CHEST WITHOUT CONTRAST [CT] Stat Exams 09/06/19 14:09 Completed PELVIS WITHOUT CONTRAST [CT] Stat Exams 09/06/19 14:09 Completed Assessment/Plan (1) Acute UTI (urinary tract infection) Current Visit: Yes Status: Acute Assessment & Plan: On IV rocephin day #2; would like to tx pt here until her urine culture results are in. Code(s): N39.0 - URINARY TRACT INFECTION, SITE NOT SPECIFIED (2) Dementia Current Visit: Yes Status: Chronic Qualifiers: Dementia type: unspecified type Dementia behavioral disturbance: without behavioral disturbance Qualified Code(s): F03.90 - Unspecified dementia without behavioral disturbance Assessment & Plan: Unsure her baseline Code(s): F03.90 - UNSPECIFIED DEMENTIA WITHOUT BEHAVIORAL DISTURBANCE (3) Amputee, above knee Current Visit: No Status: Chronic Qualifiers: Laterality: left Code(s): Z89.619 - ACQUIRED ABSENCE OF UNSPECIFIED LEG ABOVE KNEE (4) Gastroparesis Current Visit: No Status: Chronic Code(s): K31.84 - GASTROPARESIS (5) Type 2 diabetes mellitus Current Visit: No Status: Chronic Qualifiers: Diabetes mellitus detention insulin use: with long term care phlebotomist use Diabetes mellitus complication status: with skin complications Diabetes mellitus complication detail: with other skin complication Qualified Code(s): E11.628 - Type 2 diabetes mellitus with other skin complications; 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
[2019-09-07] MEDS: Sodium Chloride 0.9% 1000 ML 1,000 ML IV SCH (12:57)
[2019-09-07] MEDS: ZOCOR 20MG PO SCH (21:07)
[2019-09-07] MEDS: Reglan 10 MG PO SCH (21:07)
[2019-09-07] MEDS: Lantus Insulin SQ SCH (21:08)
[2019-09-08] MEDS: TENORMIN 50 MG PO SCH ×2 (08:52→21:23)
[2019-09-08] MEDS: Zestril 5 MG PO SCH (08:52)
[2019-09-08] MEDS: SYNTHROID 125 MCG PO SCH (08:52)
[2019-09-08] MEDS: THERAGRAN MULTIVITAMIN PO SCH (08:52)
[2019-09-08] MEDS: Colace 100 MG PO SCH ×2 (08:52→21:22)
[2019-09-08] MEDS: LOPID 600 MG PO SCH (08:52)
[2019-09-08] MEDS: ECOTRIN 81 MG PO SCH (08:53)
[2019-09-08] MEDS: ROCEPHIN 1 Gm-D5w 50 ml Bag** 1 G/50 ML IVPB IV SCH ×2 (08:53→14:04)
[2019-09-08] MEDS: Protonix 40MG Tablet PO SCH (08:53)
[2019-09-08 09:29] LABS: Hematocrit 36.5 % (35-47); Hemoglobin 11.5 gm/dl (12.0-16.0); Mean Cell Volume 89.2 fl (78-100); Mean Corpuscular Hemoglobin 28.1 pg (26-32); Mean Corpuscular Hgb Concent. 31.5 g/dl (32-36); Mean Platelet Volume 9.3 fl (7.5-11.0); Platelet Count 314 K/mm3 (150-450); Red Blood Count 4.09 M/mm3 (4.1-5.4); Red Cell Distribution Width 16.6 % (11.5-14.0); White Blood Count 11.7 K/mm3 (4.0-10.5)
[2019-09-08 09:34] LABS: ALBUMIN 3.6 g/dL (3.5-5.0); ALKALINE PHOSPHATASE 64 U/L (38-126); ANION GAP 14.6 MEQ/L (5-15); BLOOD UREA NITROGEN 21 mg/dL (7-17); CHLORIDE 113 mmol/L (98-107); Calcium 9.3 mg/dL (8.4-10.2); Creatinine 1 0.78 mg/dL (0.52-1.04); Glucose 107 mg/dL (74-106); MAGNESIUM 1.9 mg/dL (1.6-2.3); Potassium 3.4 mmol/L (3.5-5.1); SGOT/AST 31 U/L (14-36); SGPT/ALT 17 U/L (0-35); SODIUM 140 mmol/L (137-145)
[2019-09-08 09:37] LABS: Carbon Dioxide 16 mmol/L (22-30)
[2019-09-08 10:23] LABS: ANISOCYTOSIS 1+; BAND 1 % (0.0-2.0); Eosinophil 3 % (0.00-3.0); Lymphocytes 33 % (24-44); Monocyte 2 % (0.0-12.0); Neutrophils 61 % (36.0-66.0); Platelet Estimate NORMAL (NORMAL); Total Cells Counted 100; Toxic Granulation 1+
--- NOTE | 2019-09-08 13:35 | PCM.NOTE ---
Date and Time: 09/08/19 1332 Subjective Assessment: Pt is pleasant, not oriented to time. Denies any pain. Thinks she has been eating ok. - Review of Systems Constitutional: No Fever Abdominal/Gastrointestinal: No Vomiting Objective Exam General Appearance: no apparent distress, alert Neurologic Exam: cooperative, disoriented Skin Exam: normal color, warm, dry, No rash Respiratory Exam: lungs clear, diminished breath sounds, wheezing (faint scattered expiratory), No crackles/rales, No rhonchi Cardiovascular Exam: regular rate/rhythm, normal heart sounds, No murmur Gastrointestinal/Abdomen Exam: soft, normal bowel sounds, No tenderness, No distention Extremity Exam: other (LLE s/p remote amputation; stump with chronic changes, no open wound or erythema.) OBJECTIVE DATA Vital Signs: Vital Signs - 24 hr Temp Pulse Resp BP BP Pulse Ox 09/08/19 11:00 98.3 F 70 18 123/58 97 09/08/19 07:00 98.6 F 59 L 18 104/51 94 L 09/08/19 03:00 98.0 F 72 19 125/59 98 09/07/19 23:00 97.7 F 69 18 133/72 98 09/07/19 21:07 84 154/64 09/07/19 19:00 98.2 F 83 17 154/63 98 09/07/19 15:00 97.9 F 84 18 112/57 97 Pain Assessment - Last Documented Pain Intensity 0 Pain Scale Used 0-10 Pain Scale Intake and Output: Intake & Output 09/06/19 09/07/19 09/08/19 09/09/19 11:59 11:59 11:59 11:59 Intake Total 2788 1940 Output Total 1750 1850 Balance 1038 90 Weight 64.1 kg Lab Results: Accuchecks Date 09/08/19 Date 09/08/19 Date 09/07/19 Time 11:30 Time 07:30 Time 16:30 Accucheck Value: 106 Accucheck Value: 109 Accucheck Value: 195 Accucheck Value: 180 Lab Results-Last 24 Hours 09/08/19 09/08/19 Range/Units 09:15 09:15 WBC 11.7 H (4.0-10.5) K/mm3 RBC 4.09 L (4.1-5.4) M/mm3 Hgb 11.5 L (12.0-16.0) gm/dl Hct 36.5 (35-47) % MCV 89.2 (78-100) fl MCH 28.1 (26-32) pg MCHC 31.5 L (32-36) g/dl RDW 16.6 H (11.5-14.0) % Plt Count 314 (150-450) K/mm3 MPV 9.3 (7.5-11.0) fl Segmented Neutrophils 61 (36.0-66.0) % Band Neutrophils 1 (0.0-2.0) % Lymphocytes (Manual) 33 (24-44) % Monocytes (Manual) 2 (0.0-12.0) % Eosinophils (Manual) 3 (0.00-3.0) % Toxic Granulation 1+ Platelet Estimate NORMAL (NORMAL) RBC Morphology ABNORMAL Anisocytosis 1+ Sodium 140 (137-145) mmol/L Potassium 3.4 L (3.5-5.1) mmol/L Chloride 113 H (98-107) mmol/L Carbon Dioxide 16 L* (22-30) mmol/L Anion Gap 14.6 (5-15) MEQ/L BUN 21 H (7-17) mg/dL Creatinine 0.78 (0.52-1.04) mg/dL Estimated GFR > 60.0 ML/MIN Glucose 107 H (74-106) mg/dL Calcium 9.3 (8.4-10.2) mg/dL Magnesium 1.9 (1.6-2.3) mg/dL Total Bilirubin 0.40 (0.2-1.3) mg/dL AST 31 (14-36) U/L ALT 17 (0-35) U/L Alkaline Phosphatase 64 (38-126) U/L Serum Total Protein 7.0 (6.3-8.2) g/dL Albumin 3.6 (3.5-5.0) g/dL Radiology Exams: Radiology Procedures Category Date Time Status CHEST WITHOUT CONTRAST [CT] Stat Exams 09/06/19 14:09 Completed PELVIS WITHOUT CONTRAST [CT] Stat Exams 09/06/19 14:09 Completed Assessment/Plan (1) Acute UTI (urinary tract infection) Current Visit: Yes Status: Acute Assessment & Plan: Urine culture shows GNR - on IV rocephin. Code(s): N39.0 - URINARY TRACT INFECTION, SITE NOT SPECIFIED (2) Dehydration Current Visit: Yes Status: Acute Assessment & Plan: CO2 decreased again today - to 16. Will give another bolus of fluid then recheck BMP in 6h, if it continues to be decreased would consult nephrology. Code(s): E86.0 - DEHYDRATION (3) Dementia Current Visit: Yes Status: Chronic Qualifiers: Dementia type: unspecified type Dementia behavioral disturbance: without behavioral disturbance Qualified Code(s): F03.90 - Unspecified dementia without behavioral disturbance Code(s): F03.90 - UNSPECIFIED DEMENTIA WITHOUT BEHAVIORAL DISTURBANCE (4) Amputee, above knee Current Visit: No Status: Chronic Qualifiers: Laterality: left Code(s): Z89.619 - ACQUIRED ABSENCE OF UNSPECIFIED LEG ABOVE KNEE (5) Gastroparesis Current Visit: No Status: Chronic Code(s): K31.84 - GASTROPARESIS (6) Type 2 diabetes mellitus Current Visit: No Status: Chronic Qualifiers: Diabetes mellitus termite technician insulin use: with termite technician use Diabetes mellitus complication status: with skin complications Diabetes mellitus complication detail: with other skin complication Qualified Code(s): E11.628 - Type 2 diabetes mellitus with other skin complications; 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
[2019-09-08] MEDS ORDERED: Sodium Chloride 0.9% 1000 ML 1,000 ML IV STA (13:36)
[2019-09-08] MEDS ORDERED: PROVENTIL 2.5 MG/3 ML NEB IH PRN (13:37)
[2019-09-08 21:18] LABS: BLOOD UREA NITROGEN 19 mg/dL (7-17); CHLORIDE 111 mmol/L (98-107); Calcium 8.8 mg/dL (8.4-10.2); Carbon Dioxide 19 mmol/L (22-30); Creatinine 1 0.94 mg/dL (0.52-1.04); Glucose 207 mg/dL (74-106); Potassium 3.1 mmol/L (3.5-5.1); SODIUM 140 mmol/L (137-145)
[2019-09-08] MEDS: ZOCOR 20MG PO SCH (21:22)
[2019-09-08] MEDS: Lantus Insulin SQ SCH (21:23)
[2019-09-08] MEDS: Reglan 10 MG PO SCH (21:23)
[2019-09-09] MEDS: Sodium Chloride 0.9% 1000 ML 1,000 ML IV SCH ×2 (00:39→10:12)
[2019-09-09] MEDS ORDERED: PHARMACY DOSING REQUEST MC ONE (08:58)
[2019-09-09] MEDS ORDERED: K-LYTE 25 MEQ PO ONE (09:00)
[2019-09-09] MEDS: Merrem 1 GM 1 G in Sodium Chloride 100ML MINI-BAG PLUS 100 ML IV SCH ×2 (10:12→21:07)
[2019-09-09] MEDS: ENOXAPARIN SODIUM SQ SCH (10:13)
[2019-09-09] MEDS: Zestril 5 MG PO SCH (10:13)
[2019-09-09] MEDS: Colace 100 MG PO SCH ×2 (10:13→21:07)
[2019-09-09] MEDS: Protonix 40MG Tablet PO SCH (10:14)
[2019-09-09] MEDS: THERAGRAN MULTIVITAMIN PO SCH (10:14)
[2019-09-09] MEDS: TENORMIN 50 MG PO SCH ×2 (10:14→21:05)
[2019-09-09] MEDS: SYNTHROID 125 MCG PO SCH (10:15)
[2019-09-09] MEDS: ECOTRIN 81 MG PO SCH (10:15)
[2019-09-09] MEDS: LOPID 600 MG PO SCH (11:08)
--- NOTE | 2019-09-09 11:28 | PCM.NOTE ---
Date and Time: 09/09/19 1122 Subjective Assessment: Patient reports she is feeling better. She reports when she came to the hospital that she was having vomiting of her medication and food. She is concerned about her as she states she has people that help her and they help him too when they are there but they are not going to the home right now because she is here. Discussed with materials planner, Allyson, and she will look into this. Patient reports she doesn't usually have a broussard and is agreeable to having it taken out. - Review of Systems Constitutional: Fatigue Respiratory: No Symptoms Cardiac: No Symptoms Abdominal/Gastrointestinal: No Symptoms Genitourinary Symptoms: No Symptoms Musculoskeletal: No Symptoms Objective Exam General Appearance: no apparent distress, obese, other (thinning hair.) Neurologic Exam: alert, cooperative, normal mood/affect Skin Exam: normal color, warm, dry Respiratory Exam: normal breath sounds, lungs clear, No crackles/rales, No rhonchi, No wheezing Cardiovascular Exam: regular rate/rhythm, normal heart sounds, No murmur, No friction rub, No gallop Gastrointestinal/Abdomen Exam: soft, normal bowel sounds Extremity Exam: other (left above the knee amputation; scrape on left stump ( patient unsure how she got this)) OBJECTIVE DATA Vital Signs: Vital Signs - 24 hr Temp Pulse Resp BP BP Pulse Ox 09/09/19 10:14 80 133/62 09/09/19 08:00 98.2 F 82 18 133/62 97 09/09/19 07:04 97 09/09/19 04:00 99.1 F 89 32 H 135/63 97 09/08/19 23:00 98.3 F 81 22 137/59 97 09/08/19 19:48 83 16 97 09/08/19 19:00 98.1 F 80 20 132/63 97 09/08/19 15:00 98.2 F 80 16 112/58 98 09/08/19 14:07 74 18 97 Pain Assessment - Last Documented Pain Intensity 0 Pain Scale Used 0-10 Pain Scale Intake and Output: Intake & Output 09/07/19 09/08/19 09/09/19 09/10/19 06:59 06:59 06:59 06:59 Intake Total 2388 2220 2648 240 Output Total 1750 1850 3350 Balance 638 370 -702 240 Weight 64.1 kg Lab Results: Accuchecks Date 09/09/19 Date 09/08/19 Date 09/08/19 Date 09/08/19 Time 07:30 Time 22:00 Time 16:30 Time 11:30 Accucheck Value: 115 Accucheck Value: 186 Accucheck Value: 158 Accucheck Value: 106 Lab Results-Last 24 Hours 09/08/19 09/09/19 Range/Units 21:04 09:55 Sodium 140 (137-145) mmol/L Potassium 3.1 L (3.5-5.1) mmol/L Chloride 111 H (98-107) mmol/L Carbon Dioxide 19 L (22-30) mmol/L Anion Gap 14.0 (5-15) MEQ/L BUN 19 H (7-17) mg/dL Creatinine 0.94 (0.52-1.04) mg/dL Estimated GFR > 60.0 ML/MIN Glucose 207 H (74-106) mg/dL Calcium 8.8 (8.4-10.2) mg/dL Magnesium 1.6 (1.6-2.3) mg/dL Assessment/Plan (1) Acute UTI (urinary tract infection) Current Visit: Yes Status: Acute Assessment & Plan: Urine culture growing two different Ecoli's and one is ESBL positive. Stopping ceftriaxone and starting meropenem. Will plan for 5-10 days of IV antibiotics to treat this. Will discontinue broussard. Code(s): N39.0 - URINARY TRACT INFECTION, SITE NOT SPECIFIED (2) Type 2 diabetes mellitus Current Visit: No Status: Chronic Qualifiers: Diabetes mellitus fdc insulin use: with fdc use Diabetes mellitus complication status: with skin complications Diabetes mellitus complication detail: with other skin complication Qualified Code(s): E11.628 - Type 2 diabetes mellitus with other skin complications; Z79.4 - [facility] ( current) use of insulin Assessment & Plan: Continue current medication (3) Dementia Current Visit: Yes Status: Chronic Qualifiers: Dementia type: unspecified type Dementia behavioral disturbance: without behavioral disturbance Qualified Code(s): F03.90 - Unspecified dementia without behavioral disturbance Code(s): F03.90 - UNSPECIFIED DEMENTIA WITHOUT BEHAVIORAL DISTURBANCE (4) Amputee, above knee Current Visit: No Status: Chronic Qualifiers: Laterality: left Code(s): Z89.619 - ACQUIRED ABSENCE OF UNSPECIFIED LEG ABOVE KNEE
[2019-09-09] MEDS: MAG-OX 400 PO SCH (13:06)
[2019-09-09] MEDS: ZOCOR 20MG PO SCH (21:05)
[2019-09-09] MEDS: Reglan 10 MG PO SCH (21:06)
[2019-09-09] MEDS: Lantus Insulin SQ SCH (21:07)
[2019-09-09] MEDS: HUMALOG SQ PRN (21:07)
[2019-09-10 05:06] LABS: Hematocrit 32.7 % (35-47); Hemoglobin 10.4 gm/dl (12.0-16.0); Mean Cell Volume 88.6 fl (78-100); Mean Corpuscular Hemoglobin 28.2 pg (26-32); Mean Corpuscular Hgb Concent. 31.8 g/dl (32-36); Mean Platelet Volume 8.8 fl (7.5-11.0); Platelet Count 344 K/mm3 (150-450); Red Blood Count 3.69 M/mm3 (4.1-5.4); Red Cell Distribution Width 16.3 % (11.5-14.0); White Blood Count 11.3 K/mm3 (4.0-10.5)
[2019-09-10 05:27] LABS: ANION GAP 7.8 MEQ/L (5-15); BLOOD UREA NITROGEN 14 mg/dL (7-17); CHLORIDE 114 mmol/L (98-107); Calcium 8.7 mg/dL (8.4-10.2); Carbon Dioxide 23 mmol/L (22-30); Creatinine 1 0.65 mg/dL (0.52-1.04); Glucose 125 mg/dL (74-106); Potassium 3.6 mmol/L (3.5-5.1); SODIUM 140 mmol/L (137-145)
[2019-09-10 07:25] LABS: BAND 3 % (0.0-2.0); Eosinophil 4 % (0.00-3.0); Lymphocytes 35 % (24-44); Monocyte 2 % (0.0-12.0); Neutrophils 56 % (36.0-66.0); Total Cells Counted 100
[2019-09-10 07:26] LABS: ANISOCYTOSIS 1+; Microcytosis 1+; Platelet Estimate NORMAL (NORMAL); Toxic Granulation 1+
[2019-09-10] MEDS: Merrem 1 GM 1 G in Sodium Chloride 100ML MINI-BAG PLUS 100 ML IV SCH ×2 (10:36→22:22)
[2019-09-10] MEDS: ENOXAPARIN SODIUM SQ SCH (10:38)
[2019-09-10] MEDS: LOPID 600 MG PO SCH (10:39)
[2019-09-10] MEDS: TENORMIN 50 MG PO SCH ×2 (10:40→22:21)
[2019-09-10] MEDS: ECOTRIN 81 MG PO SCH (10:40)
[2019-09-10] MEDS: MAG-OX 400 PO SCH (10:40)
[2019-09-10] MEDS: THERAGRAN MULTIVITAMIN PO SCH (10:43)
[2019-09-10] MEDS: Zestril 5 MG PO SCH (10:44)
[2019-09-10] MEDS: SYNTHROID 125 MCG PO SCH (10:45)
[2019-09-10] MEDS: Colace 100 MG PO SCH ×2 (10:46→22:21)
[2019-09-10] MEDS: Protonix 40MG Tablet PO SCH (10:46)
--- NOTE | 2019-09-10 10:49 | PCM.NOTE ---
Date and Time: 09/10/19 1047 Subjective Assessment: Patient reports she would like to go home; discussed with her that her urine culture is growing a bacteria that is resistant to all oral antibiotics and she is unable to travel back and forth from home for IV antibiotics. She reports a good appetite. - Review of Systems Constitutional: Fatigue Eyes: No Symptoms Respiratory: No Symptoms Cardiac: No Symptoms Abdominal/Gastrointestinal: No Symptoms Genitourinary Symptoms: No Symptoms Musculoskeletal: No Symptoms Objective Exam General Appearance: no apparent distress Neurologic Exam: alert, cooperative, normal mood/affect Skin Exam: normal color, warm, dry Respiratory Exam: normal breath sounds, lungs clear, No crackles/rales, No rhonchi, No wheezing Cardiovascular Exam: regular rate/rhythm, normal heart sounds, No murmur, No friction rub, No gallop Gastrointestinal/Abdomen Exam: soft, normal bowel sounds, No tenderness, No distention, No mass OBJECTIVE DATA Vital Signs: Vital Signs - 24 hr Temp Pulse Resp BP BP Pulse Ox 09/10/19 10:40 75 118/57 09/10/19 08:13 78 16 93 L 09/10/19 08:12 93 L 09/10/19 07:17 97.9 F 75 18 118/57 95 09/10/19 04:00 98.6 F 72 16 116/58 97 09/10/19 00:00 98.7 F 74 18 154/71 96 09/09/19 21:05 72 113/77 09/09/19 20:00 98.5 F 72 16 113/77 99 09/09/19 18:44 96 09/09/19 16:00 98.3 F 83 20 136/59 97 09/09/19 12:00 97.9 F 77 20 153/67 98 Pain Assessment - Last Documented Pain Intensity 0 Pain Scale Used 0-10 Pain Scale Intake and Output: Intake & Output 09/08/19 09/09/19 09/10/19 09/11/19 06:59 06:59 06:59 06:59 Intake Total 2220 2648 1327 480 Output Total 1850 3350 1500 Balance 416 -509 -258 656 Weight 64.1 kg Lab Results: Accuchecks Date 09/10/19 Date 09/09/19 Date 09/09/19 Time 05:00 Time 16:30 Time 11:30 Accucheck Value: 203 Accucheck Value: 151 Accucheck Value: 132 Lab Results-Last 24 Hours 09/10/19 09/10/19 Range/Units 04:45 04:45 WBC 11.3 H (4.0-10.5) K/mm3 RBC 3.69 L (4.1-5.4) M/mm3 Hgb 10.4 L (12.0-16.0) gm/dl Hct 32.7 L (35-47) % MCV 88.6 (78-100) fl MCH 28.2 (26-32) pg MCHC 31.8 L (32-36) g/dl RDW 16.3 H (11.5-14.0) % Plt Count 344 (150-450) K/mm3 MPV 8.8 (7.5-11.0) fl Segmented Neutrophils 56 (36.0-66.0) % Band Neutrophils 3 H (0.0-2.0) % Lymphocytes (Manual) 35 (24-44) % Monocytes (Manual) 2 (0.0-12.0) % Eosinophils (Manual) 4 H (0.00-3.0) % Toxic Granulation 1+ Platelet Estimate NORMAL (NORMAL) RBC Morphology ABNORMAL Anisocytosis 1+ Microcytosis 1+ Sodium 140 (137-145) mmol/L Potassium 3.6 (3.5-5.1) mmol/L Chloride 114 H (98-107) mmol/L Carbon Dioxide 23 (22-30) mmol/L Anion Gap 7.8 (5-15) MEQ/L BUN 14 (7-17) mg/dL Creatinine 0.65 (0.52-1.04) mg/dL Estimated GFR > 60.0 ML/MIN Glucose 125 H (74-106) mg/dL Calcium 8.7 (8.4-10.2) mg/dL Multi-Disciplinary Progress Notes: Multi-Disciplinary Progress Notes 09/10/19 10:16 Case Management Note by Allyson Martinez ATTEMPTED TO NOTIFY [facility] THAT PATIENT IS HERE IN HOUSE. NO ANSWER-LM Initialized on 09/10/19 10:16 - END OF NOTE 09/10/19 10:04 Case Management Note by Allyson Martinez S/W DAUGHTER AMY- SHE REPORTS PATIENT IS BED BOUND AND HAS BEEN FOR APPROX 9 YRS. SHE LIVES WITH HER . THEY HAVE [facility] THAT COMES IN 7 DAYS A WEEK FROM 6-12 THEN 5-7. THEY ALSO HAVE A PRIVATE PAY PERSON THAT COMES IN AND DOES THE NIGHTTIME MEDS AND SETTLES PATIENT IN FOR THE NIGHT. PATIENT HAS A HOSPITAL BED, [employer] CHAIR AND LIFE ALERT IN ADDITION TO HER GLUCOMETER. PATIENT'S GRANDDAUGHTER WILL BE MOVING INTO THE APARTMENT ABOVE PATIENT'S GARAGE SOON AND HELP PROVIDE CARE FOR PATIENT WELL. DAUGHTER DECLINES USP PLACEMENT AT THIS TIME THEY PLAN FOR THE GRANDDAUGHTER TO BE ABLE TO PROVIDE EVEN MORE SUPPORT SOON. AMY STATES THEY RELY ON [facility] FOR TRANSPORT D/T PATIENT UNABLE TO SIT UP D/T PAIN. S/W AMY ABOUT SWINGBED PROGRAM D/T THE NEED FOR 5-10 DAYS OF IV ANTIBIOTICS. SHE IS AGREEABLE TO THAT. I CALLED AND S/W LINDA AT [facility]. I NOTIFIED HIM PATIENT IS HERE UNDER MEDICARE AND HAS MEDICAID A SECONDARY AND REQUIRES AN AMBULANCE FOR TRANSPORT. HE CHECKED PATIENT'S ELIGIBILITY AND STATED PATIENT WOULD QUALIFY FOR A TRANSPORT HOME FROM THE HOSPITAL. THEY COULD PROVIDE SAME DAY TRANSFER FOR HOSPITAL DISCHARGES. WE WILL JUST NEED TO CALL THEM DAY OF DC. Initialized on 09/10/19 10:04 - END OF NOTE 09/09/19 12:08 Case Management Note by Yulissa Garrison REPORTED TO DR. LOPEZ THAT PT'S IS NEEDING [facility]. DR. LOPEZ REPORTS THAT HE WILL HAVE HIS STAFF CALL PT'S . Initialized on 09/09/19 12:08 - END OF NOTE 09/09/19 11:00 (created 09/09/19 12:03) Case Management Note by Yulissa Garrison SPOKE WITH , LEON, REGARDING NEEDS ON DISCHARGE. DISCUSSED THAT PT WOULD LIKELY HAVE TO BE IN THE HOSPITAL FOR 5-7 DAYS OF IV ABX UNLESS PT COULD DO OUTPATIENT TREATMENTS. REPORTS THAT THERE IS NO WAY THEY COULD GET TO THE HOSPITAL DAILY FOR ANTIBIOTICS, LET ALONE TWICE DAILY. REPORTS THAT HE DOES NOT DRIVE, AND THEY RELY ON HIRED CAREGIVERS TO RUN ERRANDS, ETC. REPORTS THAT IT WOULD BE TOO MUCH OF A HARDSHIP ON THEM. DID DISCUSS SWING BED AN OPTION TO KEEP PT FOR THE TIME NEEDED FOR IV ABX. REPORTS THAT HE IS INTERESTED IN THAT, HE WANTS HER TO GET THE TREATMENT THAT SHE NEEDS. ALSO, REPORTS THAT HE IS NEEDING SOME HELP AT HOME, DISCUSSED [facility]. ENCOURAGED PT TO MAKE AN APPOINTMENT WITH DR. LOPEZ SO THAT HE COULD ARRANGE FOR [facility]. PT REPORTS THAT HE WILL. WILL ALSO, REPORT TO DR. LOPEZ. Initialized on 09/09/19 12:03 - END OF NOTE Assessment/Plan (1) Acute UTI (urinary tract infection) Current Visit: Yes Status: Acute Assessment & Plan: Continue meropenem Day 2 of 5. 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 Continue current medications. (3) Dementia Current Visit: Yes Status: Chronic Qualifiers: Dementia type: unspecified type Dementia behavioral disturbance: without behavioral disturbance Qualified Code(s): F03.90 - Unspecified dementia without behavioral disturbance Assessment & Plan: Stable at this time. 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
[2019-09-10] MEDS: Sodium Chloride 0.9% 1000 ML 1,000 ML IV SCH (19:54)
[2019-09-10] MEDS: ZOCOR 20MG PO SCH (22:21)
[2019-09-10] MEDS: Reglan 10 MG PO SCH (22:21)
[2019-09-10] MEDS: Lantus Insulin SQ SCH (22:22)
[2019-09-10] MEDS: HUMALOG SQ PRN (22:22)
[2019-09-10] MEDS: NYSTOP POWDER 15 GM TP SCH (22:30)
[2019-09-11 05:24] LABS: Hematocrit 31.4 % (35-47); Hemoglobin 9.9 gm/dl (12.0-16.0); Mean Cell Volume 89.2 fl (78-100); Mean Corpuscular Hemoglobin 28.1 pg (26-32); Mean Corpuscular Hgb Concent. 31.5 g/dl (32-36); Mean Platelet Volume 8.7 fl (7.5-11.0); Platelet Count 331 K/mm3 (150-450); Red Blood Count 3.52 M/mm3 (4.1-5.4); Red Cell Distribution Width 16.6 % (11.5-14.0); White Blood Count 10.7 K/mm3 (4.0-10.5)
[2019-09-11 05:42] LABS: ANION GAP 6.3 MEQ/L (5-15); BLOOD UREA NITROGEN 16 mg/dL (7-17); CHLORIDE 113 mmol/L (98-107); Calcium 8.4 mg/dL (8.4-10.2); Carbon Dioxide 22 mmol/L (22-30); Creatinine 1 0.81 mg/dL (0.52-1.04); Glucose 145 mg/dL (74-106); Potassium 3.5 mmol/L (3.5-5.1); SODIUM 138 mmol/L (137-145)
[2019-09-11 06:17] LABS: BAND 1 % (0.0-2.0); Eosinophil 8 % (0.00-3.0); Lymphocytes 18 % (24-44); Monocyte 3 % (0.0-12.0); Neutrophils 70 % (36.0-66.0); Total Cells Counted 100
[2019-09-11 06:18] LABS: Platelet Estimate NORMAL (NORMAL)
[2019-09-11] MEDS: Colace 100 MG PO SCH (10:20)
[2019-09-11] MEDS: ENOXAPARIN SODIUM SQ SCH (10:20)
[2019-09-11] MEDS: ECOTRIN 81 MG PO SCH (10:20)
[2019-09-11] MEDS: LOPID 600 MG PO SCH (10:21)
[2019-09-11] MEDS: Merrem 1 GM 1 G in Sodium Chloride 100ML MINI-BAG PLUS 100 ML IV SCH (10:22)
[2019-09-11] MEDS: MAG-OX 400 PO SCH (10:22)
[2019-09-11] MEDS: SYNTHROID 125 MCG PO SCH (10:22)
[2019-09-11] MEDS: Protonix 40MG Tablet PO SCH (10:22)
[2019-09-11] MEDS: Zestril 5 MG PO SCH (10:23)
[2019-09-11] MEDS: TENORMIN 50 MG PO SCH (10:23)
[2019-09-11] MEDS: THERAGRAN MULTIVITAMIN PO SCH (10:25)
[2019-09-11] MEDS: NYSTOP POWDER 15 GM TP SCH (10:34)
--- NOTE | 2019-09-11 11:25 | PCM.DCORD ---
- Discharge Disposition: Swing Bed @ [facility] Condition: Fair Prescriptions: New Docusate Sodium 100 mg [Colace 100 MG] 100 mg PO BID capsule Aspirin EC 81 mg [Ecotrin 81 mg] 81 mg PO DAILY tablet.ec Enoxaparin Sodium [Enoxaparin Sodium] 40 mg SQ DAILY syringe Insulin Glargine [Lantus Insulin] 10 unit SQ HS unit Gemfibrozil 600 mg [Lopid 600 mg] 600 mg PO DAILY tablet Magnesium Oxide 400 mg [Mag-Ox 400] 400 mg PO DAILY tablet Meropenem [Merrem 1 GM] 1 g IV Q12HT vial Nystatin Powder 15 gm [Nystop Powder 15 gm] 1 gm TP BID powder PANTOPRAZOLE 40 mg Tablet [Protonix 40MG Tablet] 40 mg PO DAILY tab Albuterol 2.5 mg/3 ml Neb [Proventil 2.5 mg/3 ml Neb] 2.5 mg IH Q6HRT PRN neb PRN Reason: wheezing Metoclopramide HCl 10 mg [Reglan 10 MG] 5 mg PO HS tablet Lisinopril 5 mg [Zestril 5 MG] 2.5 mg PO DAILY tablet Simvastatin 20Mg [Zocor 20Mg] 40 mg PO HS tablet Continue Atenolol 12.5 mg PO BID Levothyroxine Sodium 125 mcg PO DAILY #30 tablet Multivitamin [Multi-Vitamin Daily] 1 tab PO DAILY Insulin Aspart [Novolog] 1 unit SQ UD Discontinued Gemfibrozil 600 mg [Lopid 600 mg] 600 mg PO DAILY Simvastatin 40 mg [Zocor 40 mg] 40 mg PO HS Aspirin 81 mg PO DAILY PANTOPRAZOLE 40 mg Tablet [Protonix 40MG Tablet] 40 mg PO DAILY #30 tab lisinopriL [Zestril] 2.5 mg PO DAILY Docusate Sodium 100 mg [Colace 100 MG] 100 mg PO BID Metoclopramide HCl [Reglan] 5 mg PO HS Insulin Glargine [Lantus Insulin] 10 unit SQ QPM Empagliflozin/Metformin HCl [Synjardy Xr 12.5-1,000 mg Tab] 1 tab PO DAILY Follow up with: FELICIA LOPEZ MD [Primary Care Provider] - 1 Week
[2019-09-11] MEDS ORDERED: Aplisol ID ONE (12:01)
[2019-09-11 12:29] VITALS: BP 122/79; PULSE 66; O2SAT 98
[2019-09-11] MEDS ORDERED: Robitussin 100 MG/5 ML PO PRN (15:11)
--- NOTE | 2019-09-11 15:16 | DS ---
DISCHARGE DIAGNOSES: 1) URINARY TRACT INFECTION. 2) DIABETES MELLITUS TYPE 2. 3) DEMENTIA. 4) LEFT ABOVE KNEE AMPUTATION. 5) HISTORY OF TINEA CORPORIS. DISCHARGE PHYSICAL EXAMINATION: VITALS: Temperature current 98.8F, temperature max 98.8F, heart rate 71, respiratory rate 18, blood pressure 130/62. Oxygen saturation 97% on room air. GENERAL: The patient is a pleasant talkative lady sitting up in bed in no acute distress. CVS: She has a regular rate and rhythm. No murmurs, gallops or rubs. CHEST: Clear to auscultation bilaterally. No crackles or wheezes. ABDOMEN: Soft, nontender, nondistended with normal bowel sounds. EXTREMITIES: +2 radial pulses bilaterally. She has a left above knee amputation with some excoriations on her stump and under her pannus worse on the left. She had some erythema and some white powder in place. HOSPITAL COURSE: 1) URINARY TRACT INFECTION: She had a urine culture that grew two different kinds of Escherichia coli and one did not have very many sensitivities so she was switched to meropenem two days ago. We are planning to complete a five day course as this day three for her. She is going to go to a swing-bed to finish out her IV antibiotics as she is unable to come back and forth to the hospital for those. When she goes home she will have home health care. 2) DIABETES MELLITUS TYPE 2: Currently well controlled. She is on Lantus 10 units a day as well as a sliding scale. 3) DEMENTIA: Currently stable. 4) LEFT ABOVE KNEE AMPUTATION: Currently stable. 5) TINEA CORPORIS: We started Nystatin powder last night. DISCHARGE MEDICATIONS: Please see the discharge order. DISPOSITION: The patient was discharged to a swing-bed to finish up the IV course of antibiotics.
== END 2019-09-11 16:00 | disposition swing bed (61) | DRG 690 ==
LOC: ED 13:55 → MED SURG 16:20 → OBSVTOIN 09-07 12:44
PROVIDERS: ADMIT Family Medicine; ATTEND Family Medicine
DX: N39.0 Urinary tract infection, site not specified (principal); B96.20 Unspecified Escherichia coli [E. coli] as the cause of diseases classified elsewhere; E86.0 Dehydration; R05 Cough; M25.552 Pain in left hip; E11.9 Type 2 diabetes mellitus without complications; I10 Essential (primary) hypertension; E03.9 Hypothyroidism, unspecified; F03.90 Unspecified dementia, unspecified severity, without behavioral disturbance, psychotic disturbance, mood disturbance, and anxiety; B35.4 Tinea corporis; H40.9 Unspecified glaucoma; K31.84 Gastroparesis; Z85.3 Personal history of malignant neoplasm of breast; R53.83 Other fatigue; Z79.899 Other long term (current) drug therapy; Z89.512 Acquired absence of left leg below knee
CPT/HCPCS: 36000; 36415; 51702; 71250; 72192; 80048; 80053; 81001; 82962; 83036; 83605; 83735; 84134; 84484; 85025; 87040; 87077; 87086; 87186; 87631; 94640; 94760; 96360; 96365; 99285; G0378; J0696; J1650; J1817; J7609; A9270-GY

== ENCOUNTER 2019-09-11 14:08 | Inpatient (IN) | payer MEDICARE ==
[2019-09-11] MEDS ORDERED: Robitussin 100 MG/5 ML PO PRN (16:12)
[2019-09-11] MEDS ORDERED: PROVENTIL 2.5 MG/3 ML NEB IH PRN (16:12)
[2019-09-11] MEDS ORDERED: Aplisol ID ONE (16:12)
[2019-09-11] MEDS ORDERED: HUMALOG SQ PRN (16:12)
[2019-09-11] MEDS: Colace 100 MG PO SCH (21:34)
[2019-09-11] MEDS: ZOCOR 20MG PO SCH (21:34)
[2019-09-11] MEDS: Merrem 1 GM 1 G in Sodium Chloride 100ML MINI-BAG PLUS 100 ML IV SCH (21:34)
[2019-09-11] MEDS: TENORMIN 50 MG PO SCH (21:34)
[2019-09-11] MEDS: Reglan 10 MG PO SCH (21:40)
[2019-09-11] MEDS: Lantus Insulin SQ SCH (21:42)
[2019-09-11] MEDS: NYSTOP POWDER 15 GM TP SCH (21:42)
[2019-09-12] MEDS: Sodium Chloride 0.9% 1000 ML 1,000 ML IV SCH (06:51)
[2019-09-12] MEDS: Zestril 5 MG PO SCH (11:00)
[2019-09-12] MEDS: Protonix 40MG Tablet PO SCH (11:00)
[2019-09-12] MEDS: MAG-OX 400 PO SCH (11:00)
[2019-09-12] MEDS: Colace 100 MG PO SCH ×2 (11:00→22:33)
[2019-09-12] MEDS: ECOTRIN 81 MG PO SCH (11:00)
[2019-09-12] MEDS: THERAGRAN MULTIVITAMIN PO SCH (11:00)
[2019-09-12] MEDS: ENOXAPARIN SODIUM SQ SCH (11:01)
[2019-09-12] MEDS: SYNTHROID 125 MCG PO SCH (11:01)
[2019-09-12] MEDS: TENORMIN 50 MG PO SCH ×2 (11:01→22:34)
[2019-09-12] MEDS: NYSTOP POWDER 15 GM TP SCH ×2 (11:02→22:34)
[2019-09-12] MEDS: LOPID 600 MG PO SCH (11:02)
[2019-09-12] MEDS: Merrem 1 GM 1 G in Sodium Chloride 100ML MINI-BAG PLUS 100 ML IV SCH ×2 (11:02→22:33)
[2019-09-12] MEDS: Lantus Insulin SQ SCH (22:33)
[2019-09-12] MEDS: ZOCOR 20MG PO SCH (22:37)
[2019-09-12] MEDS: Reglan 10 MG PO SCH (22:38)
[2019-09-13 07:51] VITALS: BP 110/51
[2019-09-13] MEDS: Sodium Chloride 0.9% 1000 ML 1,000 ML IV SCH (09:30)
[2019-09-13] MEDS: TENORMIN 50 MG PO SCH (09:34)
[2019-09-13] MEDS: ENOXAPARIN SODIUM SQ SCH (09:34)
[2019-09-13] MEDS: Colace 100 MG PO SCH (09:35)
[2019-09-13] MEDS: MAG-OX 400 PO SCH (09:35)
[2019-09-13] MEDS: ECOTRIN 81 MG PO SCH (09:35)
[2019-09-13] MEDS: THERAGRAN MULTIVITAMIN PO SCH (09:36)
[2019-09-13] MEDS: Zestril 5 MG PO SCH (09:36)
[2019-09-13] MEDS: NYSTOP POWDER 15 GM TP SCH (09:36)
[2019-09-13] MEDS: SYNTHROID 125 MCG PO SCH (09:36)
[2019-09-13] MEDS: Protonix 40MG Tablet PO SCH (09:36)
[2019-09-13] MEDS: Merrem 1 GM 1 G in Sodium Chloride 100ML MINI-BAG PLUS 100 ML IV SCH (09:38)
[2019-09-13] MEDS: LOPID 600 MG PO SCH (09:38)
[2019-09-13 09:55] VITALS: PULSE 64; O2SAT 94
--- NOTE | 2019-09-13 11:36 | PCM.DCORD ---
- Discharge Discharge Date: 09/13/19 Disposition: Home, Self-Care Condition: Fair Prescriptions: New Docusate Sodium 100 mg [Colace 100 MG] 100 mg PO BID capsule PANTOPRAZOLE 40 mg Tablet [Protonix 40MG Tablet] 40 mg PO DAILY tab Continue Atenolol 12.5 mg PO BID Levothyroxine Sodium 125 mcg PO DAILY #30 tablet Multivitamin [Multi-Vitamin Daily] 1 tab PO DAILY Insulin Aspart [Novolog] 1 unit SQ UD Docusate Sodium 100 mg [Colace 100 MG] 100 mg PO BID capsule Aspirin EC 81 mg [Ecotrin 81 mg] 81 mg PO DAILY tablet.ec Insulin Glargine [Lantus Insulin] 10 unit SQ HS unit Gemfibrozil 600 mg [Lopid 600 mg] 600 mg PO DAILY tablet Magnesium Oxide 400 mg [Mag-Ox 400] 400 mg PO DAILY tablet Nystatin Powder 15 gm [Nystop Powder 15 gm] 1 gm TP BID powder PANTOPRAZOLE 40 mg Tablet [Protonix 40MG Tablet] 40 mg PO DAILY tab Albuterol 2.5 mg/3 ml Neb [Proventil 2.5 mg/3 ml Neb] 2.5 mg IH Q6HRT PRN neb PRN Reason: wheezing Metoclopramide HCl 10 mg [Reglan 10 MG] 5 mg PO HS tablet Lisinopril 5 mg [Zestril 5 MG] 2.5 mg PO DAILY tablet Simvastatin 20Mg [Zocor 20Mg] 40 mg PO HS tablet Discontinued Enoxaparin Sodium [Enoxaparin Sodium] 40 mg SQ DAILY syringe Meropenem [Merrem 1 GM] 1 g IV Q12HT vial Instructions: Urinary Tract Infection, Adult (DC) Additional Instructions: Pantoprazole and docusate should just be on this list one time please. Follow up with: FELICIA LOPEZ MD [Primary Care Provider] - 1 Week
== END 2019-09-13 15:10 | disposition home or self-care (01) | DRG 690 ==
LOC: MED SURG 16:00
PROVIDERS: ADMIT Internal Medicine; ATTEND Internal Medicine
DX: N39.0 Urinary tract infection, site not specified (principal); E86.0 Dehydration; F03.90 Unspecified dementia, unspecified severity, without behavioral disturbance, psychotic disturbance, mood disturbance, and anxiety; E11.9 Type 2 diabetes mellitus without complications; E03.9 Hypothyroidism, unspecified; K44.9 Diaphragmatic hernia without obstruction or gangrene; I10 Essential (primary) hypertension; K31.84 Gastroparesis; Z89.612 Acquired absence of left leg above knee; Z85.3 Personal history of malignant neoplasm of breast; Z79.899 Other long term (current) drug therapy
CPT/HCPCS: 82962; 94760; J1650; A9270-GY